=== PATIENT | female | born 1950 | race Caucasian/White ===

== ENCOUNTER 2017-02-01 10:01 | Emergency (ER) | payer OTHER, MEDICAID ==
[2017-02-01 10:11] VITALS: BP 128/62; BMI 33.1
--- NOTE | 2017-02-01 10:25 | DR.GENAD ---
HPI - PCP Primary Care Physician: ezra - HPI Comment HPI Comment: PAIN WORSE TODAY. - Complaint/Symptoms Chief Complaint Doctors Comments: FELL YESTERDAY AND INJURED LEFT KNEE, RT SHOULDER AND LT FOOT. Chief Complaint:: patient stated she fell yesterday and having right shoulder pain, left knee pain and left foot pain. - Nurses notes reviewed Nurses Notes Review: Yes - Source History Provided: Patient - Mode of Arrival Mode of Arrival: Ambulatory - Timing Onset of Chief Complaint: 02/01/17 Came on: Suddenly - Duration Duration: Constant Duration: Days - Severity Severity: Moderate PMH - PMH Past Medical History: Yes Past Medical History: Hypertension, Diabetes, Hypothyroidism, COPD, GERD, Arthritis Past Surgical History: Yes Surgical History: Cholecystectomy, Tonsillectomy - Family History History of Family Medical Conditions: Yes Family Medical History: Diabetes Mellitus, Cancer, [place], Sudden Cardiac , Hypertension - Social History Does patient currently use any type of tobacco product: No Have you used tobacco products in the last 12 months: No Type of Tobacco Use: None Does any household member use tobacco: No Alcohol Use: None Do you use any recreational Drugs:: No Lives With: Family Lives Where: Home - infectious screening In the last 2 months have you had wt loss of >10#?: NO Have you had fever, night sweats or hemotysis?: No Have you traveled outside the country in the last 6 months?: No Isolation: Standard ROS - Review of Systems Constitutional: No Symptoms Reported Eyes: No Symptoms Reported ENTM: No Symptoms Reported Respiratoy: No Symptoms Reported Cardiovascular: No Symptoms Reported Gastrointestinal/Abdominal: No Symptoms Reported Genitourinary: No Symptoms Reported Neurological: No Symptoms Reported Musculoskeletal: Right, Left, Shoulder, Knee, Foot Integumentary: No Symptoms Reported Hematologic/Lymphatic: No Symptoms Reported Endocrine: No Symptoms Reported All Other Systems: Reviewed and Negative PE - Vital Signs Vitals: Temperature 98.7 F Pulse Rate 64 Respiratory Rate 16 Blood Pressure [Right Arm] 126/73 Blood Pressure 128/62 O2 Sat by Pulse Oximetry 100 - General Limitations: No Limitations General Appearance: Alert - Head Head Exam: Normal Inspection - Eyes Eye exam: Normal Appearance - ENT ENT Exam: Normal External Ear Exam TM/Canal Exam: Bilateral Normal Nose Exam: Normal Nose Exam Throat Exam: Normal Inspection - Neck Neck Exam: Normal Inspection - Chest Chest Inspection: Symmetric Chest Wall Rise - Respiratory Respiratory Exam: Normal Lung Sounds Bilat Respiratory Exam: Bilateral Clear to Auscultation - Cardiovascular Cardiovascular Exam: Regular Rate, Normal Rhythm, Normal Heart Sounds - Abdominal Exam Abdominal Exam: Normal Inspection - Extremities Extremities Exam: Tenderness (RT SHOULDER, LEFT FOOT AND LT KNEE TENDER.) - Back Back Exam: Normal Inspection - Neurologic Neurological Exam: Alert, Oriented X3 - Psychiatric Psychiatric Exam: Normal Affect, Normal Mood - Skin Skin Exam: Normal Color MDM - Differential Diagnosis Differential Diagnosis: SPRAIN, FRACTURE, STRAIN KNEE FOOT AND SHOULDER. Course - Treatment Treatment: SEE ORDERS. - Education/Counseling Education/Counseling: Patient, Education Educated On: Diagnosis, Needs for Follow Up ROR - XRAY XRAY Interpreted by: Radiologist XRAY Findings: REPORT DISCUSS WITH PATIENT. - Diagnosis Discharge Problem: Left ankle sprain Qualifiers: Encounter type: initial encounter Involved ligament of ankle: unspecified ligament Qualified Code(s): S93.402A - Sprain of unspecified ligament of left ankle, initial encounter Contusion of left foot Qualifiers: Encounter type: initial encounter Qualified Code(s): S90.32XA - Contusion of left foot, initial encounter Left knee sprain Qualifiers: Encounter type: initial encounter Involved ligament of knee: unspecified ligament Qualified Code(s): S83.92XA - Sprain of unspecified site of left knee, initial encounter Sprain of right shoulder Qualifiers: Encounter type: initial encounter Shoulder sprain type: unspecified sprain Qualified Code(s): S43.401A - Unspecified sprain of right shoulder joint, initial encounter - Discharge Plan Disposition: 01 HOME, SELF-CARE Condition: Stable - Follow ups/Referrals Follow ups/Referrals: Oumar Jeronimo [Primary Care Provider] - 2 days - Instructions Instructions: Shoulder Sprain, Acute Ankle Sprain With Phase I Rehab-SportsMed , Knee Pain, [id number] Additional Instructions: RETURN TO ED IF WORSE. CONTINUE WITH MEDS AT HOME FOR PAIN.
[2017-02-01] MEDS ORDERED: TORADOL 60 MG VIAL IM ONE (10:39)
[2017-02-01] MEDS ORDERED: NEOSPORIN OINT ONE (10:41)
[2017-02-01] MEDS ORDERED: TORADOL 60 MG VIAL ONE (10:44)
[2017-02-01] MEDS ORDERED: MORPHINE SULFATE INJ 4 MG IVP ONE (10:55)
[2017-02-01] MEDS ORDERED: MORPHINE SULFATE INJ 4 MG ONE (10:57)
--- NOTE | 2017-02-01 11:44 | RAD ---
Left ankle, three views Indication: Fall with ankle pain Comparison: None Findings: There is mild soft tissue swelling about the ankle. No acute fracture or malalignment is id entified. There are mild degenerative changes of tibiotalar joint. Small well corticated ossific body adjacent to the medial malleolus is compatible with sequela from remote injury. There is no apprecia ble joint effusion. Hindfoot enthesopathy is noted. Impression: Mild soft tissue swelling about the ankle without acute fracture or malalignment. Chronic/degenerative findings as above. Reported By:
--- NOTE | 2017-02-01 11:47 | RAD ---
Left knee, two views Indication: Fall with knee pain Comparison: None Findings: No acute fracture or malalignment is identified. There is mild tricompartmental degenerativ e arthrosis, most significant within the medial femorotibial and patellofemoral compartments. There i s no significant joint effusion. Mild nonspecific subcutaneous edema is present about the knee. Impression: No acute fracture or malalignment. Mild, nonspecific subcutaneous edema about the knee and degenerative changes, as above. Reported By:
--- NOTE | 2017-02-01 14:23 | RAD ---
Right shoulder, three views Indication: Fall with shoulder pain Comparison: None Findings: No acute fracture or malalignment is identified. There are moderate degenerative changes of the AC joint. The glenohumeral joint and acromiohumeral interval are within normal limits. There is no gross soft tissue injury. Impression: No acute radiographic abnormality of the right shoulder. Reported By:
== END 2017-02-01 12:04 | disposition home or self-care (01) ==
LOC: ER 10:14
DX: S93.402A Sprain of unspecified ligament of left ankle, initial encounter (principal); S90.32XA Contusion of left foot, initial encounter; S83.92XA Sprain of unspecified site of left knee, initial encounter; S43.401A Unspecified sprain of right shoulder joint, initial encounter; W19.XXXA Unspecified fall, initial encounter; Y92.9 Unspecified place or not applicable
CPT/HCPCS: 73030; 73560; 73610; 96372; 99282; 99283; J1885; J2270

== ENCOUNTER 2017-12-12 21:50 | Inpatient (IN) ==
[2017-12-12] MEDS ORDERED: ZOFRAN INJ 4 MG VIAL IVP PRN (22:39)
[2017-12-12] MEDS: DEMEROL INJ IVP PRN (23:20)
[2017-12-12 23:47] LABS: BASOPHILS # (AUTO) 0.1 X10^3/uL (0.0-0.1); BASOPHILS % (AUTO) 1.2 % (0.2-1.0); EOSINOPHILS # (AUTO) 0.2 x10^3/uL (0.0-0.2); EOSINOPHILS % (AUTO) 3.4 % (0.9-2.9); HEMATOCRIT 36.5 % (36.0-47.0); HEMOGLOBIN 12.5 g/dL (12.0-16.0); LYMPHOCYTES # (AUTO) 1.4 X10^3/uL (1.3-2.9); LYMPHOCYTES % (AUTO) 28.5 % (21.0-51.0); MEAN CORPUSCULAR HGB CONC 34.3 g/dL (33.0-35.0); MEAN CORPUSCULAR VOLUME 84.3 fL (80.0-100.0); MEAN PLATELET VOLUME 8.6 fL (7.4-11.0); MONOCYTES # (AUTO) 0.4 x10^3/uL (0.3-0.8); MONOCYTES % (AUTO) 7.2 % (0.0-13.0); NEUTROPHILS % (AUTO) 59.7 % (42.0-75.0); PLATELET COUNT 134 X10^3/uL (150.0-450.0); RED BLOOD COUNT 4.32 X10^6/uL (3.5-5.4); RED CELL DISTRIBUTION WIDTH 14.1 % (11.6-16.5)
[2017-12-12 23:57] LABS: ALANINE AMINOTRANSFERASE 58 Units/L (12-78); ALBUMIN 3.6 g/dL (3.4-5.0); ALKALINE PHOSPHATASE 88 Units/L (46-116); ASPARTATE AMINO TRANSFERASE 54 Units/L (15-37); BLOOD UREA NITROGEN 13 mg/dL (7-18); CALCIUM 9.1 mg/dL (8.5-10.1); CARBON DIOXIDE 33.9 mmol/L (21-32); CHLORIDE 97 mmol/L (98-107); COR NA(FOR HYPERGLY) 141 mmol/L (136-145); CREATININE 1.19 mg/dL (0.55-1.02); SODIUM 135 mmol/L (136-145); TOTAL PROTEIN 7.2 g/dL (6.4-8.2); eGFR NON BLACK RACES 48 (>60)
[2017-12-13 01:23] VITALS: BMI 33.9
[2017-12-13] MEDS ORDERED: MORPHINE SULFATE INJ 2 MG INJ IVP PRN (02:00)
[2017-12-13] MEDS: DEMEROL INJ IVP PRN ×3 (03:30→23:30)
[2017-12-13] MEDS ORDERED: NARCAN INJ IVP ONE (03:45)
[2017-12-13] MEDS ORDERED: NARCAN INJ ONE (03:50)
[2017-12-13 06:03] LABS: BASOPHILS % (AUTO) 0.9 % (0.2-1.0); EOSINOPHILS # (AUTO) 0.2 x10^3/uL (0.0-0.2); EOSINOPHILS % (AUTO) 4.3 % (0.9-2.9); HEMATOCRIT 33.7 % (36.0-47.0); HEMOGLOBIN 11.7 g/dL (12.0-16.0); LYMPHOCYTES # (AUTO) 1.1 X10^3/uL (1.3-2.9); LYMPHOCYTES % (AUTO) 28.7 % (21.0-51.0); MEAN CORPUSCULAR HGB CONC 34.8 g/dL (33.0-35.0); MEAN CORPUSCULAR VOLUME 83.4 fL (80.0-100.0); MEAN PLATELET VOLUME 8.7 fL (7.4-11.0); MONOCYTES # (AUTO) 0.4 x10^3/uL (0.3-0.8); MONOCYTES % (AUTO) 9.4 % (0.0-13.0); NEUTROPHILS # (AUTO) 2.2 x10^3/uL (2.2-4.8); NEUTROPHILS % (AUTO) 56.7 % (42.0-75.0); PLATELET COUNT 117 X10^3/uL (150.0-450.0); RED BLOOD COUNT 4.04 X10^6/uL (3.5-5.4); RED CELL DISTRIBUTION WIDTH 13.8 % (11.6-16.5)
[2017-12-13 06:20] LABS: ALANINE AMINOTRANSFERASE 52 Units/L (12-78); ALBUMIN 3.2 g/dL (3.4-5.0); ALKALINE PHOSPHATASE 77 Units/L (46-116); ASPARTATE AMINO TRANSFERASE 47 Units/L (15-37); BLOOD UREA NITROGEN 12 mg/dL (7-18); CALCIUM 8.9 mg/dL (8.5-10.1); CHLORIDE 100 mmol/L (98-107); COR CA(FOR HYPOALB) 9.5 mg/dL (8.5-10.1); COR NA(FOR HYPERGLY) 140 mmol/L (136-145); CREATININE 1.04 mg/dL (0.55-1.02); SODIUM 137 mmol/L (136-145); TOTAL PROTEIN 6.5 g/dL (6.4-8.2); eGFR NON BLACK RACES 56 (>60)
[2017-12-13] MEDS ORDERED: K-LYTE EFFERVESCENT PO PRN (10:05)
[2017-12-13] MEDS ORDERED: POTASSIUM CHL 60 MEQ/NS 0.45% 500 ML IV PRN (10:05)
[2017-12-13] MEDS ORDERED: POTASSIUM CHL 40 MEQ/NS 0.45% 500 ML IV PRN (10:05)
[2017-12-13] MEDS ORDERED: POTASSIUM CHLORIDE LIQ 20 MEQ UDC PO PRN (10:05)
[2017-12-13] MEDS ORDERED: K-RIDER 10 MEQ/NS 100 ML 10 MEQ/100 ML BAG IV PRN (10:05)
[2017-12-13] MEDS: TORADOL 15 MG VIAL IVP SCH ×3 (10:19→21:34)
[2017-12-13] MEDS ORDERED: NS 250 ML IV 250 ML IV ONE (13:01)
[2017-12-13] MEDS: HumuLIN R SUBCUT PRN ×2 (13:21→18:05)
[2017-12-13] MEDS: MAGNESIUM SULFATE 1 GRAM/100 mL PREMIX 1 GM/100 ML BAG IV PRN ×2 (19:14→20:34)
--- NOTE | 2017-12-13 20:32 | DR.H&P ---
H&P - History & Physical for Day of: H&P Date: 12/12/17 - Chief Complaint Chief Complaint: RIGHT LEG PAIN - History of Present Illness History of Present Illness: IS A 67 YEAR OLD PATIENT OF OURS. SHE WAS A DIRECT ADMISSION FOR COMPLAINTS OF SEVERE RIGHT HIP AND LEG PAIN. PATIENT REPORTS THAT SHE ALSO HAS A BROKEN COCCYX. PATIENT REPORTS THAT PAIN HAS BEEN PRESENT FOR SEVERAL DAYS, BUT HAS PROGRESSIVELY GOTTEN WORSE. SHE REPORTS TAKING HER REGULAR PAIN MEDICATIONS AT HOME WITHOUT RELIEF OF PAIN. SHE WAS ADMITTED FOR INTRACTABLE PAIN TO MANAGE WITH IV PAIN MEDICATIONS. ON EXAMINATION , RIGHT LEG IS NOTED WITH TRACE EDEMA. ON ADMISSION, VITALS WERE 98.7-76-18-93%- 178/80. LABS WERE OBTAINED. ABNORMAL LAB VALUES INCLUDE THE FOLLOWING: PLT COUNT 134, SODIUM 135, CHLORIDE 97, CARBON DIOXIDE 33.9, CREATININE 1.19, GLUCOSE 357, AST 54. SHE WAS STARTED ON DEMEROL 25MG IV Q4H PRN PAIN AND ZOFRAN 4MG IV Q4H PRN NAUSEA. WE PLAN TO OBTAIN A VENOUS DOPPLER OF THE RIGHT LOWER EXTREMITY. OTHERWISE, WE WILL FOLLOW UP WITH AM LABS AND CONTINUE TO MONITOR PATIENT. - Past Medical History Past Medical History: Hypertension, Diabetes, Hypothyroidism, COPD, GERD, Arthritis - Past Surgical History Surgical History: Cholecystectomy, Hysterectomy, Other - Family History Family Medical History: Diabetes Mellitus, Cancer - Social History Alcohol Use: None Drug Use: None - Medications Home Medications: aspirin Allergy (Verified 02/01/17 10:07) CONTINUE taking the following medications amitriptyline 50 mg PO HS 12/13/17 [History] clonazepam 1 - 2 tab PO HS 12/13/17 [History] dexlansoprazole [Dexilant] 60 mg PO DAILY 12/13/17 [History] fenofibrate 1 tab PO DAILY 12/13/17 [History] gabapentin 2 tab PO HS 12/13/17 [History] gabapentin 800 mg PO TID PRN 12/13/17 [History] levothyroxine 50 mcg PO HS 12/13/17 [History] metformin 1,000 mg PO BID 12/13/17 [History] metoprolol tartrate 25 mg PO BID 12/13/17 [History] montelukast 10 mg PO HS 12/13/17 [History] ondansetron 8 mg TRANSLINGUAL TID PRN 12/13/17 [History] paroxetine HCl 40 mg PO DAILY 12/13/17 [History] simvastatin 40 mg PO HS 12/13/17 [History] topiramate 100 mg PO BID 12/13/17 [History] - Review of Systems Constitutional: No Symptoms Reported Eyes: No Symptoms Reported ENT: No Symptoms Reported Respiratory: No Symptoms Reported Cardiovascular: No Symptoms Reported Gastrointestinal: No Symptoms Reported Genitourinary: No Symptoms Reported Musculoskeletal: See HPI, Leg Pain (RIGHT LEG ), Other (SACRAL PAIN ) Skin: No Symptoms Reported Neurological: No Symptoms Reported - Physical Exam Vital Signs: Temperature 98.3 F Pulse Rate [Left Radial] 77 Respiratory Rate 20 Blood Pressure [Left Arm] 180/67 Blood Pressure [Right Arm] 160/89 Blood Pressure 128/62 O2 Sat by Pulse Oximetry 99 Oriented: Normal Eyes: Normal Ear: Normal Nose: Normal Throat: Normal Respiratory: Clear Throughout Cardiovascular: Normal : Normal Auscultation: Bowel Sounds: Normal Palpation: Normal Tenderness: Normal Skin: Normal Musculoskeletal: Right, Leg, Swelling, Tender Psychiatric: Normal Mood Description: Calm Affect: Normal Speech Pattern: Clear - Assessment/Plan (1) Intractable pain Status: Acute Plan: DEMEROL 25MG IV Q4H PRN PAIN, OBTAIN VENOUS DOPPLER, CONTINUE TO MONITOR - Allergies Allergies/Adverse Reactions: Allergies Allergy/AdvReac Type Severity Reaction Status Date / Time aspirin Allergy Verified 02/01/17 10:07
[2017-12-13] MEDS ORDERED: TRICOR TAB 160 MG PO SCH (21:00)
[2017-12-13] MEDS ORDERED: TOPAMAX TAB 100 MG PO SCH (21:00)
[2017-12-13] MEDS ORDERED: GLUCOPHAGE ONE (21:19)
[2017-12-13] MEDS: ELAVIL PO SCH (21:24)
[2017-12-13] MEDS: GLUCOPHAGE PO SCH (21:25)
[2017-12-13] MEDS: LOPRESSOR TAB 25 MG PO SCH (21:25)
[2017-12-13] MEDS: ZOCOR TAB 40 MG PO SCH (21:25)
[2017-12-13] MEDS: NEURONTIN CAP 400 MG PO SCH (21:25)
[2017-12-13] MEDS: GLUCOTROL PO SCH (21:26)
[2017-12-13] MEDS: SINGULAIR TAB 10 MG PO SCH (21:26)
[2017-12-13] MEDS: SYNTHROID 50 mcg TAB PO SCH (21:27)
[2017-12-13] MEDS: KLONOPIN TAB 0.5 MG PO SCH (21:31)
[2017-12-13] MEDS: TOPAMAX TAB 100 MG PO SCH (21:39)
[2017-12-13] MEDS: SNACK - Diabetic Appropriate PO SCH (21:39)
--- NOTE | 2017-12-13 22:08 | VAS ---
Ultrasound bilateral lower extremity venous Doppler Indication: Bilateral leg pain cramping Technique: Dynamic grayscale, color spectral Doppler imaging through the bilateral lower extremities with compression techniques. Findings: The right popliteal vein, superficial femoral vein throughout its length and common femoral vein are patent and compressible with normal respiratory phasicity. The left popliteal vein is patent and compressible with normal respiratory phasicity. The left common femoral vein, proximal and mid left superficial femoral vein are patent compressible with normal res piratory phasicity. The distal left superficial femoral vein is not completely compressible with vagu jo decreased color Doppler flow. Thrombus here is possible. Impression: 1. Noncompressible left distal superficial femoral vein with possible thrombosed. 2. Remaining veins are normal. Reported By:
[2017-12-13] MEDS: LOVENOX INJ 80 MG SYR SC SCH (23:04)
[2017-12-14] MEDS: PERCOCET TAB 5/325 MG PO PRN (01:37)
[2017-12-14] MEDS: TORADOL 15 MG VIAL IVP SCH ×4 (03:43→21:53)
[2017-12-14] MEDS ORDERED: GLUCOPHAGE ONE ×2 (05:15→16:38)
[2017-12-14] MEDS: NEURONTIN CAP 400 MG PO SCH ×3 (05:49→21:55)
[2017-12-14] MEDS: DEMEROL INJ IVP PRN ×2 (05:53→23:00)
[2017-12-14] MEDS: GLUCOTROL PO SCH ×2 (06:00→16:41)
[2017-12-14] MEDS: GLUCOPHAGE PO SCH ×2 (06:00→16:40)
[2017-12-14 06:20] LABS: BASOPHILS % (AUTO) 0.8 % (0.2-1.0); EOSINOPHILS # (AUTO) 0.2 x10^3/uL (0.0-0.2); EOSINOPHILS % (AUTO) 4.3 % (0.9-2.9); HEMATOCRIT 37.1 % (36.0-47.0); HEMOGLOBIN 12.9 g/dL (12.0-16.0); LYMPHOCYTES # (AUTO) 1.6 X10^3/uL (1.3-2.9); LYMPHOCYTES % (AUTO) 39.3 % (21.0-51.0); MEAN CORPUSCULAR HEMOGLOBIN 29.3 pg (27.0-34.0); MEAN CORPUSCULAR HGB CONC 34.8 g/dL (33.0-35.0); MEAN CORPUSCULAR VOLUME 84.2 fL (80.0-100.0); MEAN PLATELET VOLUME 9.1 fL (7.4-11.0); MONOCYTES # (AUTO) 0.3 x10^3/uL (0.3-0.8); MONOCYTES % (AUTO) 8.5 % (0.0-13.0); NEUTROPHILS # (AUTO) 1.9 x10^3/uL (2.2-4.8); NEUTROPHILS % (AUTO) 47.1 % (42.0-75.0); PLATELET COUNT 122 X10^3/uL (150.0-450.0); RED BLOOD COUNT 4.41 X10^6/uL (3.5-5.4); RED CELL DISTRIBUTION WIDTH 13.9 % (11.6-16.5)
[2017-12-14 06:37] LABS: ALBUMIN 3.3 g/dL (3.4-5.0); CALCIUM 8.9 mg/dL (8.5-10.1); CARBON DIOXIDE 31.2 mmol/L (21-32); COR CA(FOR HYPOALB) 9.5 mg/dL (8.5-10.1); CREATININE 1.31 mg/dL (0.55-1.02); TOTAL PROTEIN 6.9 g/dL (6.4-8.2)
[2017-12-14] MEDS ORDERED: COZAAR PO SCH (09:00)
[2017-12-14] MEDS ORDERED: PATIENT'S HOME MEDICATION (Dexlansoprazole [Dexlansoprazole] 60 MG) PO SCH (09:00)
[2017-12-14] MEDS: PREVACID PO SCH (09:38)
[2017-12-14] MEDS: COZAAR PO SCH (09:38)
[2017-12-14] MEDS: TOPAMAX TAB 100 MG PO SCH ×2 (09:39→21:52)
[2017-12-14] MEDS: TRICOR TAB 160 MG PO SCH (09:40)
[2017-12-14] MEDS: HYDROCHLOROTHIAZIDE 25 MG TAB PO SCH (09:40)
[2017-12-14] MEDS: LOPRESSOR TAB 25 MG PO SCH ×2 (09:40→20:10)
[2017-12-14] MEDS: PAXIL PO SCH (09:41)
[2017-12-14] MEDS: LOVENOX INJ 80 MG SYR SC SCH ×2 (09:45→20:12)
[2017-12-14] MEDS: HumuLIN R SUBCUT PRN ×2 (13:27→21:56)
--- NOTE | 2017-12-14 13:57 | MRI ---
STUDY: MRI OF THE LUMBAR SPINE HISTORY: Severe low back pain and right leg pain. Comparison: None. Technique: Multiplanar multi-sequence MRI of the lumbar spine was performed. Sagittal T1, sagittal T 2, and STIR images, axial T1, and axial T2 images were obtained. Findings: Sagittal images: Vertebral body heights and alignment are within normal limits. Marrow signal is age-appropriate. Ther e is no evidence of significant marrow edema. Intervertebral discs are fairly well preserved. The conus medullaris is normal in appearance terminating at the level of T12/L1. Axial images: T12 -- L1: Normal. L1 -- L2: Normal. L2 -- L3: There is bilateral facet arthropathy and ligamentum flavum infolding. The central canal an d neural foramina are adequate. L3 -- L4: There is bilateral facet arthropathy and ligamentum flavum infolding. There postsurgical c hanges status post left-sided laminotomy. The central canal and neural foramina are adequate. L4 -- L5: There is a broad-based disc bulge, bilateral facet arthropathy and ligamentum flavum infold ing. This results in mild central canal stenosis. The neural foramina are adequate. L5 -- S1: There is bilateral facet arthropathy and ligamentum flavum infolding. The central canal and neural foramina are adequate. IMPRESSION: 1. Multilevel lumbar spondylosis as described, with left L3/4 laminotomy. 2. Mild spinal stenosis at L4/5. 3. No significant neural foraminal stenosis. Reported By:
[2017-12-14] MEDS: KLONOPIN TAB 0.5 MG PO SCH (20:10)
[2017-12-14] MEDS: SYNTHROID 50 mcg TAB PO SCH (20:10)
[2017-12-14] MEDS: SINGULAIR TAB 10 MG PO SCH (20:10)
[2017-12-14] MEDS: ZOCOR TAB 40 MG PO SCH (20:10)
[2017-12-14] MEDS: ELAVIL PO SCH (20:10)
[2017-12-14] MEDS: SNACK - Diabetic Appropriate PO SCH (21:55)
--- NOTE | 2017-12-14 22:21 | PCM.PROG ---
Progress Note - Progress Note for Day of Date of Exam: 12/13/17 - Subjective Subjective: WAS ADMITTED FOR INTRACTABLE RIGHT HIP AND LEG PAIN WELL PAIN TO THE COCCYX. TODAY, SHE IS ALERT AND ORIENTED, LYING IN BED ON MORNING ROUNDS. SHE CONTINUES WITH PAIN TO THE HIP AND LEG. ON EXAMINATION, HEART IS REGULAR IN RATE AND RHYTHM. BILATERAL LUNGS ARE NOTED WITH DIMINISHED LUNG SOUNDS THROUGHOUT. ABDOMEN IS ROUND, SOFT, AND NON-TENDER WITH NORMAL BOWEL SOUNDS NOTED IN ALL QUADRANTS. THERE IS DECREASED RANGE OF MOTION NOTED TO THE RIGHT LEG. BILATERAL LEGS NOTED WITH TRACE EDEMA. HER VITALS TODAY ARE 98.2-70-20-100%NC-157/70. LABS WERE OBTAINED. ABNORMAL LAB VALUES INCLUDE THE FOLLOWING: HGB 11.7, HCT 33.7, PLT COUNT 117, POTASSIUM 3.2, CREATININE 1.04, GLUCOSE 238, AST 47, ALBUMIN 3.2, MAGNESIUM 1.6. TODAY, WE WILL OBTAIN A VENOUS DOPPLER OF THE BILATERAL LOWER EXTREMITIES. WE WILL START TORADOL 30MG IV Q6H, AND PERCOCET 5MG QID PRN PAIN. OTHERWISE, WE WILL FOLLOW UP WITH AM LABS AND CONTINUE TO MONITOR PATIENT. - Past Medical Family Social History Past Med/Fam/Surg Hx: No changes since H&P Allergies: Allergies aspirin Allergy (Verified 02/01/17 10:07) - Review of Systems ROS: No change since H&P - Vital Signs and I&O's Vital Signs: Temperature 97.4 F Pulse Rate [Left Radial] 62 Respiratory Rate 18 Blood Pressure [Left Arm] 164/73 Blood Pressure [Right Arm] 160/89 Blood Pressure 128/62 O2 Sat by Pulse Oximetry 92 Intake and Output: Intake & Output 12/12/17 12/13/17 12/14/17 12/15/17 11:59 11:59 11:59 11:59 Intake Total 90 / 90 1754 / 1754 880 / 880 Output Total 4200 / 4200 500 / 500 Balance 90 / 90 -2446 / -2446 380 / 380 - Physical Exam Oriented: Normal Eyes: Normal Ear: Normal Nose: Normal Throat: Normal Respiratory: Diminished Cardiovascular: Normal : Normal Auscultation: Bowel Sounds: Normal Palpation: Normal Tenderness: Normal Skin: Normal Musculoskeletal: Right, Hip, Leg, Back:Lumbar, Swelling, Tender Psychiatric: Normal Mood Description: Calm Affect: Normal Speech Pattern: Clear, Appropriate - Laboratory and Diagnostics Result Diagrams: 12/14/17 04:32 12/14/17 04:32 Labs: Laboratory WBC 4.0 X10^3/uL (3.6-10.0) 12/14/17 04:32 RBC 4.41 X10^6/uL (3.5-5.4) 12/14/17 04:32 Hgb 12.9 g/dL (12.0-16.0) 12/14/17 04:32 Hct 37.1 % (36.0-47.0) 12/14/17 04:32 MCV 84.2 fL (80.0-100.0) 12/14/17 04:32 MCH 29.3 pg (27.0-34.0) 12/14/17 04:32 MCHC 34.8 g/dL (33.0-35.0) 12/14/17 04:32 RDW 13.9 % (11.6-16.5) 12/14/17 04:32 Plt Count 122 X10^3/uL (150.0-450.0) L 12/14/17 04:32 MPV 9.1 fL (7.4-11.0) 12/14/17 04:32 Neut % (Auto) 47.1 % (42.0-75.0) 12/14/17 04:32 Lymph % (Auto) 39.3 % (21.0-51.0) 12/14/17 04:32 [place] % (Auto) 8.5 % (0.0-13.0) 12/14/17 04:32 Eos % (Auto) 4.3 % (0.9-2.9) H 12/14/17 04:32 Baso % (Auto) 0.8 % (0.2-1.0) 12/14/17 04:32 Neut # (Auto) 1.9 x10^3/uL (2.2-4.8) L 12/14/17 04:32 Lymph # (Auto) 1.6 X10^3/uL (1.3-2.9) 12/14/17 04:32 [place] # (Auto) 0.3 x10^3/uL (0.3-0.8) 12/14/17 04:32 Eos # (Auto) 0.2 x10^3/uL (0.0-0.2) 12/14/17 04:32 Baso # (Auto) 0.0 X10^3/uL (0.0-0.1) 12/14/17 04:32 Absolute Nucleated RBC 0.3 /100WBC 12/14/17 04:32 D-Dimer 190 ng/mL (0-400) 12/12/17 23:37 Sodium 137 mmol/L (136-145) 12/14/17 04:32 Corrected Sodium 141 mmol/L (136-145) 12/14/17 04:32 Potassium 4.1 mmol/L (3.5-5.1) 12/14/17 04:32 Chloride 102 mmol/L (98-107) 12/14/17 04:32 Carbon Dioxide 31.2 mmol/L (21-32) 12/14/17 04:32 BUN 18 mg/dL (7-18) 12/14/17 04:32 Creatinine 1.31 mg/dL (0.55-1.02) H 12/14/17 04:32 Est GFR (MDRD) Af Amer 52 (>60) L 12/14/17 04:32 Est GFR (MDRD) Non-Af 43 (>60) L 12/14/17 04:32 Glucose 282 mg/dL (65-99) H 12/14/17 04:32 POC Glucose (mg/dL) 252 mg/dL (65-99) H 12/14/17 20:03 Calcium 8.9 mg/dL (8.5-10.1) 12/14/17 04:32 Corrected Calcium 9.5 mg/dL (8.5-10.1) 12/14/17 04:32 Magnesium 2.2 mg/dL (1.7-2.9) 12/14/17 04:32 Total Bilirubin 0.40 mg/dL (0.2-1.0) 12/14/17 04:32 AST 45 Units/L (15-37) H 12/14/17 04:32 ALT 51 Units/L (12-78) 12/14/17 04:32 Alkaline Phosphatase 88 Units/L (46-116) 12/14/17 04:32 Total Protein 6.9 g/dL (6.4-8.2) 12/14/17 04:32 Albumin 3.3 g/dL (3.4-5.0) L 12/14/17 04:32 Globulin 3.6 g/dL (2.5-4.5) 12/14/17 04:32 Albumin/Globulin Ratio 0.9 Ratio (1.1-2.1) L 12/14/17 04:32 - Plan (1) Intractable pain Status: Acute Plan: DEMEROL 25MG IV Q4H PRN PAIN, PERCOCET PRN PAIN, TORADOL IV Q6H PAIN, OBTAIN VENOUS DOPPLER, CONTINUE TO MONITOR (2) Radiculopathy of leg Status: Acute
[2017-12-15] MEDS: TORADOL 15 MG VIAL IVP SCH ×4 (03:39→21:18)
[2017-12-15] MEDS ORDERED: GLUCOPHAGE ONE ×2 (05:55→17:38)
[2017-12-15 06:08] LABS: ALBUMIN 2.7 g/dL (3.4-5.0); CALCIUM 8.6 mg/dL (8.5-10.1); CARBON DIOXIDE 31.3 mmol/L (21-32); COR CA(FOR HYPOALB) 9.6 mg/dL (8.5-10.1); CREATININE 1.22 mg/dL (0.55-1.02); TOTAL PROTEIN 5.9 g/dL (6.4-8.2)
[2017-12-15 06:15] LABS: BASOPHILS % (AUTO) 0.8 % (0.2-1.0); EOSINOPHILS # (AUTO) 0.1 x10^3/uL (0.0-0.2); EOSINOPHILS % (AUTO) 3.9 % (0.9-2.9); HEMATOCRIT 32.4 % (36.0-47.0); HEMOGLOBIN 11.3 g/dL (12.0-16.0); LYMPHOCYTES # (AUTO) 1.1 X10^3/uL (1.3-2.9); LYMPHOCYTES % (AUTO) 33.3 % (21.0-51.0); MEAN CORPUSCULAR HEMOGLOBIN 29.5 pg (27.0-34.0); MEAN CORPUSCULAR HGB CONC 34.8 g/dL (33.0-35.0); MEAN CORPUSCULAR VOLUME 84.5 fL (80.0-100.0); MEAN PLATELET VOLUME 8.8 fL (7.4-11.0); MONOCYTES # (AUTO) 0.3 x10^3/uL (0.3-0.8); MONOCYTES % (AUTO) 7.9 % (0.0-13.0); NEUTROPHILS # (AUTO) 1.8 x10^3/uL (2.2-4.8); NEUTROPHILS % (AUTO) 54.1 % (42.0-75.0); PLATELET COUNT 121 X10^3/uL (150.0-450.0); RED BLOOD COUNT 3.83 X10^6/uL (3.5-5.4); RED CELL DISTRIBUTION WIDTH 13.8 % (11.6-16.5); WHITE BLOOD COUNT 3.3 X10^3/uL (3.6-10.0)
[2017-12-15] MEDS: NEURONTIN CAP 400 MG PO SCH ×3 (07:10→21:17)
[2017-12-15] MEDS: GLUCOTROL PO SCH ×2 (07:11→17:56)
[2017-12-15] MEDS: GLUCOPHAGE PO SCH ×2 (07:11→17:56)
[2017-12-15] MEDS: HumuLIN R SUBCUT PRN ×3 (07:11→21:14)
[2017-12-15] MEDS: PREVACID PO SCH (09:51)
[2017-12-15] MEDS: TRICOR TAB 160 MG PO SCH (09:51)
[2017-12-15] MEDS: PAXIL PO SCH (09:51)
[2017-12-15] MEDS: TOPAMAX TAB 100 MG PO SCH ×2 (09:51→21:17)
[2017-12-15] MEDS: LOPRESSOR TAB 25 MG PO SCH ×2 (09:52→20:24)
[2017-12-15] MEDS: HYDROCHLOROTHIAZIDE 25 MG TAB PO SCH (09:52)
[2017-12-15] MEDS: LOVENOX INJ 80 MG SYR SC SCH (09:52)
[2017-12-15] MEDS: COZAAR PO SCH (09:52)
[2017-12-15] MEDS: DEMEROL INJ IVP PRN (11:16)
--- NOTE | 2017-12-15 13:38 | CT ---
CT HEAD WITHOUT CONTRAST CLINICAL HISTORY: 67-year-old female with severe headache. COMPARISON: None. TECHNIQUE: Multiple, non-contrasted axial CT images were obtained from the skull base to the cranial vertex. Coronal and sagittal reformats were performed. FINDINGS: There are no abnormal intra- or extra-axial fluid collections, midline shift, or mass effec t. Cruz-white differentiation is normal. Global cortical involutional changes are present that are ad vanced for the patient's stated age. The ventricular system is mildly enlarged but commensurate with the degree of sulcal prominence. Periventricular and supraventricular white matter hypodensity is pre sent that is nonspecific in appearance, but most likely to represent microvascular ischemic changes. Atherosclerotic vascular calcification is present within the carotid siphons. The imaged paranasal sinuses, mastoid air cells, and tympanic spaces are clear. IMPRESSION: 1. No definite evidence of an acute intracranial process. If clinical concern persists for acute intr acranial process and it would alter patient management, consider MRI/MRA brain. 2. Moderate microvascular white matter ischemic changes, with associated volume loss. Reported By:
--- NOTE | 2017-12-15 13:55 | PCM.PROG ---
Progress Note - Progress Note for Day of Date of Exam: 12/14/17 - Subjective Subjective: WAS ADMITTED FOR INTRACTABLE RIGHT HIP AND LEG PAIN WELL PAIN TO THE COCCYX. TODAY, SHE IS ALERT AND ORIENTED, LYING IN BED ON MORNING ROUNDS. SHE CONTINUES WITH PAIN TO THE HIP AND LEG, BUT REPORTS SLIGHT IMPROVEMENT SINCE ADMISSION. ON EXAMINATION, HEART IS REGULAR IN RATE AND RHYTHM. BILATERAL LUNGS ARE NOTED WITH DIMINISHED LUNG SOUNDS THROUGHOUT. ABDOMEN IS ROUND, SOFT, AND NON-TENDER WITH NORMAL BOWEL SOUNDS NOTED IN ALL QUADRANTS. THERE IS DECREASED RANGE OF MOTION NOTED TO THE RIGHT LEG. BILATERAL LEGS NOTED WITH TRACE EDEMA. HER VITALS TODAY ARE 97.5-57-18-100%NC-137/63. LABS WERE OBTAINED. ABNORMAL LAB VALUES INCLUDE THE FOLLOWING: PLT COUNT 122, CREATININE 1.31, GLUCOSE 282, AST 45, ALBUMIN 3.3. WE OBTAINED A VENOUS DOPPLER OF THE BILATERAL LOWER EXTREMITIES YESTERDAY. IT REVEALED: Noncompressible left distal superficial femoral vein with possible thrombosed. Remaining veins are normal. WE STARTED HER ON LOVENOX 80MG SQ BID. TODAY, WE WILL OBTAIN A MRI OF THE LUMBAR SPINE. OTHERWISE, WE WILL CONTINUE WITH WE WILL FOLLOW UP WITH AM LABS AND CONTINUE TO MONITOR PATIENT. - Past Medical Family Social History Past Med/Fam/Surg Hx: No changes since H&P Allergies: Allergies aspirin Allergy (Verified 02/01/17 10:07) morphine Adverse Reaction (Verified 12/15/17 07:03) - Review of Systems ROS: No change since H&P - Vital Signs and I&O's Vital Signs: Temperature 98.0 F Pulse Rate [Left Radial] 63 Respiratory Rate 20 Blood Pressure [Left Arm] 143/67 Blood Pressure [Right Arm] 160/89 Blood Pressure 128/62 O2 Sat by Pulse Oximetry 97 Intake and Output: Intake & Output 12/13/17 12/14/17 12/15/17 12/16/17 11:59 11:59 11:59 11:59 Intake Total 90 / 90 1754 / 1754 1360 / 1360 Output Total 4200 / 4200 2200 / 2200 Balance 90 / 90 -2446 / -2446 -840 / -840 - Physical Exam Oriented: Normal Eyes: Normal Ear: Normal Nose: Normal Throat: Normal Respiratory: Diminished Cardiovascular: Normal : Normal Auscultation: Bowel Sounds: Normal Palpation: Normal Tenderness: Normal Skin: Normal Musculoskeletal: Right, Hip, Leg, Back:Lumbar, Swelling, Tender Psychiatric: Normal Mood Description: Calm Affect: Normal Speech Pattern: Clear, Appropriate - Laboratory and Diagnostics Result Diagrams: 12/15/17 05:05 12/15/17 05:05 Labs: Laboratory WBC 3.3 X10^3/uL (3.6-10.0) L 12/15/17 05:05 RBC 3.83 X10^6/uL (3.5-5.4) 12/15/17 05:05 Hgb 11.3 g/dL (12.0-16.0) L 12/15/17 05:05 Hct 32.4 % (36.0-47.0) L 12/15/17 05:05 MCV 84.5 fL (80.0-100.0) 12/15/17 05:05 MCH 29.5 pg (27.0-34.0) 12/15/17 05:05 MCHC 34.8 g/dL (33.0-35.0) 12/15/17 05:05 RDW 13.8 % (11.6-16.5) 12/15/17 05:05 Plt Count 121 X10^3/uL (150.0-450.0) L 12/15/17 05:05 MPV 8.8 fL (7.4-11.0) 12/15/17 05:05 Neut % (Auto) 54.1 % (42.0-75.0) 12/15/17 05:05 Lymph % (Auto) 33.3 % (21.0-51.0) 12/15/17 05:05 [place] % (Auto) 7.9 % (0.0-13.0) 12/15/17 05:05 Eos % (Auto) 3.9 % (0.9-2.9) H 12/15/17 05:05 Baso % (Auto) 0.8 % (0.2-1.0) 12/15/17 05:05 Neut # (Auto) 1.8 x10^3/uL (2.2-4.8) L 12/15/17 05:05 Lymph # (Auto) 1.1 X10^3/uL (1.3-2.9) L 12/15/17 05:05 [place] # (Auto) 0.3 x10^3/uL (0.3-0.8) 12/15/17 05:05 Eos # (Auto) 0.1 x10^3/uL (0.0-0.2) 12/15/17 05:05 Baso # (Auto) 0.0 X10^3/uL (0.0-0.1) 12/15/17 05:05 Absolute Nucleated RBC 0.0 /100WBC 12/15/17 05:05 D-Dimer 190 ng/mL (0-400) 12/12/17 23:37 Sodium 137 mmol/L (136-145) 12/15/17 05:05 Corrected Sodium 140 mmol/L (136-145) 12/15/17 05:05 Potassium 3.7 mmol/L (3.5-5.1) 12/15/17 05:05 Chloride 104 mmol/L (98-107) 12/15/17 05:05 Carbon Dioxide 31.3 mmol/L (21-32) 12/15/17 05:05 BUN 21 mg/dL (7-18) H 12/15/17 05:05 Creatinine 1.22 mg/dL (0.55-1.02) H 12/15/17 05:05 Est GFR (MDRD) Af Amer 57 (>60) L 12/15/17 05:05 Est GFR (MDRD) Non-Af 47 (>60) L 12/15/17 05:05 Glucose 216 mg/dL (65-99) H 12/15/17 05:05 POC Glucose (mg/dL) 290 mg/dL (65-99) H 12/15/17 12:22 Calcium 8.6 mg/dL (8.5-10.1) 12/15/17 05:05 Corrected Calcium 9.6 mg/dL (8.5-10.1) 12/15/17 05:05 Magnesium 2.2 mg/dL (1.7-2.9) 12/14/17 04:32 Total Bilirubin 0.40 mg/dL (0.2-1.0) 12/15/17 05:05 AST 31 Units/L (15-37) 12/15/17 05:05 ALT 40 Units/L (12-78) 12/15/17 05:05 Alkaline Phosphatase 81 Units/L (46-116) 12/15/17 05:05 Total Protein 5.9 g/dL (6.4-8.2) L 12/15/17 05:05 Albumin 2.7 g/dL (3.4-5.0) L 12/15/17 05:05 Globulin 3.2 g/dL (2.5-4.5) 12/15/17 05:05 Albumin/Globulin Ratio 0.8 Ratio (1.1-2.1) L 12/15/17 05:05 - Plan (1) Intractable pain Status: Acute Plan: DEMEROL 25MG IV Q4H PRN PAIN, PERCOCET PRN PAIN, TORADOL IV Q6H PAIN, OBTAIN LOWER EXTREMITY MRI, CONTINUE TO MONITOR (2) Radiculopathy of leg Status: Acute
[2017-12-15] MEDS: ELIQUIS PO SCH ×2 (14:18→20:24)
[2017-12-15] MEDS ORDERED: DULCOLAX SUPPOSITORY 10 MG ONE (16:01)
[2017-12-15] MEDS: MILK OF MAGNESIA PO SCH (17:56)
[2017-12-15] MEDS: KLONOPIN TAB 0.5 MG PO SCH (20:23)
[2017-12-15] MEDS: ELAVIL PO SCH (20:24)
[2017-12-15] MEDS: ZOCOR TAB 40 MG PO SCH (20:24)
[2017-12-15] MEDS: SINGULAIR TAB 10 MG PO SCH (20:24)
[2017-12-15] MEDS: SNACK - Diabetic Appropriate PO SCH (20:28)
[2017-12-15] MEDS: SYNTHROID 50 mcg TAB PO SCH (20:28)
[2017-12-15] MEDS ORDERED: COLACE CAP 100 MG PO SCH (21:00)
[2017-12-16] MEDS: TORADOL 15 MG VIAL IVP SCH ×2 (03:06→09:21)
[2017-12-16] MEDS ORDERED: GLUCOPHAGE ONE ×2 (04:52→09:00)
[2017-12-16] MEDS: NEURONTIN CAP 400 MG PO SCH ×2 (05:40→13:58)
[2017-12-16 05:47] LABS: BASOPHILS % (AUTO) 0.6 % (0.2-1.0); EOSINOPHILS # (AUTO) 0.1 x10^3/uL (0.0-0.2); EOSINOPHILS % (AUTO) 3.2 % (0.9-2.9); HEMATOCRIT 30.7 % (36.0-47.0); HEMOGLOBIN 10.6 g/dL (12.0-16.0); LYMPHOCYTES # (AUTO) 1.2 X10^3/uL (1.3-2.9); LYMPHOCYTES % (AUTO) 28.4 % (21.0-51.0); MEAN CORPUSCULAR HEMOGLOBIN 29.3 pg (27.0-34.0); MEAN CORPUSCULAR HGB CONC 34.7 g/dL (33.0-35.0); MEAN CORPUSCULAR VOLUME 84.5 fL (80.0-100.0); MEAN PLATELET VOLUME 8.8 fL (7.4-11.0); MONOCYTES # (AUTO) 0.3 x10^3/uL (0.3-0.8); MONOCYTES % (AUTO) 8.4 % (0.0-13.0); NEUTROPHILS # (AUTO) 2.4 x10^3/uL (2.2-4.8); NEUTROPHILS % (AUTO) 59.4 % (42.0-75.0); PLATELET COUNT 117 X10^3/uL (150.0-450.0); RED BLOOD COUNT 3.63 X10^6/uL (3.5-5.4); RED CELL DISTRIBUTION WIDTH 13.8 % (11.6-16.5); WHITE BLOOD COUNT 4.1 X10^3/uL (3.6-10.0)
[2017-12-16] MEDS: DEMEROL INJ IVP PRN (05:56)
[2017-12-16] MEDS: GLUCOTROL PO SCH (06:01)
[2017-12-16] MEDS: GLUCOPHAGE PO SCH (06:01)
[2017-12-16 06:08] LABS: ALBUMIN 2.6 g/dL (3.4-5.0); CALCIUM 8.5 mg/dL (8.5-10.1); COR CA(FOR HYPOALB) 9.6 mg/dL (8.5-10.1); CREATININE 1.3 mg/dL (0.55-1.02); TOTAL PROTEIN 5.8 g/dL (6.4-8.2)
[2017-12-16] MEDS: MILK OF MAGNESIA PO SCH (09:17)
[2017-12-16] MEDS: TRICOR TAB 160 MG PO SCH (09:18)
[2017-12-16] MEDS: PAXIL PO SCH (09:18)
[2017-12-16] MEDS: TOPAMAX TAB 100 MG PO SCH (09:18)
[2017-12-16] MEDS: LOPRESSOR TAB 25 MG PO SCH (09:19)
[2017-12-16] MEDS: ELIQUIS PO SCH (09:19)
[2017-12-16] MEDS: COZAAR PO SCH (09:19)
[2017-12-16] MEDS: PREVACID PO SCH (09:19)
[2017-12-16] MEDS: HYDROCHLOROTHIAZIDE 25 MG TAB PO SCH (09:19)
--- NOTE | 2017-12-16 10:47 | PCM.PROG ---
Progress Note - Progress Note for Day of Date of Exam: 12/15/17 - Subjective Subjective: WAS ADMITTED FOR INTRACTABLE RIGHT HIP AND LEG PAIN WELL PAIN TO THE COCCYX. TODAY, SHE IS ALERT AND ORIENTED, LYING IN BED ON MORNING ROUNDS. SHE CONTINUES WITH PAIN TO THE HIP AND LEG, BUT CONTINUES REPORT SLIGHT IMPROVEMENT SINCE ADMISSION. SHE ALSO REPORTS A SEVERE HEADACHE TODAY. ON EXAMINATION, HEART IS REGULAR IN RATE AND RHYTHM. BILATERAL LUNGS ARE NOTED WITH DIMINISHED LUNG SOUNDS THROUGHOUT. ABDOMEN IS ROUND, SOFT, AND NON- TENDER WITH NORMAL BOWEL SOUNDS NOTED IN ALL QUADRANTS. THERE IS DECREASED RANGE OF MOTION NOTED TO THE RIGHT LEG. BILATERAL LEGS NOTED WITH TRACE EDEMA. HER VITALS TODAY ARE 98.6-62-20-97%-161/74. LABS WERE OBTAINED. ABNORMAL LAB VALUES INCLUDE THE FOLLOWING: WBC 3.3, HGB 11.3, HCT 32.4, PLT COUNT 121, BUN 21 , CREATININE 1.22, GLUCOSE 216, TOTAL PROTEIN 5.9, ALBUMIN 2.7. A LUMBAR SPINE CT WAS OBTAINED AND REVEALED: Multilevel lumbar spondylosis as described, with left L3/4 laminotomy. Mild spinal stenosis at L4/5. No significant neural foraminal stenosis. TODAY, WE WILL OBTAIN A BRAIN CT AND START HER ON ELIQUIS 2.5MG PO BID. OTHERWISE, WE WILL FOLLOW UP WITH AM LABS AND CONTINUE TO MONITOR PATIENT. - Past Medical Family Social History Past Med/Fam/Surg Hx: No changes since H&P Allergies: Allergies aspirin Allergy (Verified 02/01/17 10:07) morphine Adverse Reaction (Verified 12/15/17 07:03) - Review of Systems ROS: No change since H&P - Vital Signs and I&O's Vital Signs: Temperature 97.8 F Pulse Rate [Left Radial] 52 Respiratory Rate 18 Blood Pressure [Left Arm] 115/55 Blood Pressure [Right Arm] 160/89 Blood Pressure 128/62 O2 Sat by Pulse Oximetry 99 Intake and Output: Intake & Output 12/13/17 12/14/17 12/15/17 12/16/17 11:59 11:59 11:59 11:59 Intake Total 90 / 90 1754 / 1754 1360 / 1360 1480 / 1480 Output Total 4200 / 4200 2200 / 2200 Balance 90 / 90 -2446 / -2446 -840 / -840 1480 / 1480 - Physical Exam Oriented: Normal Eyes: Normal Ear: Normal Nose: Normal Throat: Normal Respiratory: Diminished Cardiovascular: Normal : Normal Auscultation: Bowel Sounds: Normal Palpation: Normal Tenderness: Normal Skin: Normal Musculoskeletal: Right, Hip, Leg, Back:Lumbar, Swelling, Tender Psychiatric: Normal Mood Description: Calm Affect: Normal Speech Pattern: Clear, Appropriate - Laboratory and Diagnostics Result Diagrams: 12/16/17 05:05 12/16/17 05:05 Labs: Laboratory WBC 4.1 X10^3/uL (3.6-10.0) 12/16/17 05:05 RBC 3.63 X10^6/uL (3.5-5.4) 12/16/17 05:05 Hgb 10.6 g/dL (12.0-16.0) L 12/16/17 05:05 Hct 30.7 % (36.0-47.0) L 12/16/17 05:05 MCV 84.5 fL (80.0-100.0) 12/16/17 05:05 MCH 29.3 pg (27.0-34.0) 12/16/17 05:05 MCHC 34.7 g/dL (33.0-35.0) 12/16/17 05:05 RDW 13.8 % (11.6-16.5) 12/16/17 05:05 Plt Count 117 X10^3/uL (150.0-450.0) L 12/16/17 05:05 MPV 8.8 fL (7.4-11.0) 12/16/17 05:05 Neut % (Auto) 59.4 % (42.0-75.0) 12/16/17 05:05 Lymph % (Auto) 28.4 % (21.0-51.0) 12/16/17 05:05 [place] % (Auto) 8.4 % (0.0-13.0) 12/16/17 05:05 Eos % (Auto) 3.2 % (0.9-2.9) H 12/16/17 05:05 Baso % (Auto) 0.6 % (0.2-1.0) 12/16/17 05:05 Neut # (Auto) 2.4 x10^3/uL (2.2-4.8) 12/16/17 05:05 Lymph # (Auto) 1.2 X10^3/uL (1.3-2.9) L 12/16/17 05:05 [place] # (Auto) 0.3 x10^3/uL (0.3-0.8) 12/16/17 05:05 Eos # (Auto) 0.1 x10^3/uL (0.0-0.2) 12/16/17 05:05 Baso # (Auto) 0.0 X10^3/uL (0.0-0.1) 12/16/17 05:05 Absolute Nucleated RBC 0.0 /100WBC 12/16/17 05:05 D-Dimer 190 ng/mL (0-400) 12/12/17 23:37 Sodium 138 mmol/L (136-145) 12/16/17 05:05 Corrected Sodium 139 mmol/L (136-145) 12/16/17 05:05 Potassium 3.5 mmol/L (3.5-5.1) 12/16/17 05:05 Chloride 104 mmol/L (98-107) 12/16/17 05:05 Carbon Dioxide 30.0 mmol/L (21-32) 12/16/17 05:05 BUN 25 mg/dL (7-18) H 12/16/17 05:05 Creatinine 1.30 mg/dL (0.55-1.02) H 12/16/17 05:05 Est GFR (MDRD) Af Amer 53 (>60) L 12/16/17 05:05 Est GFR (MDRD) Non-Af 44 (>60) L 12/16/17 05:05 Glucose 126 mg/dL (65-99) H 12/16/17 05:05 POC Glucose (mg/dL) 198 mg/dL (65-99) H 12/15/17 19:26 Calcium 8.5 mg/dL (8.5-10.1) 12/16/17 05:05 Corrected Calcium 9.6 mg/dL (8.5-10.1) 12/16/17 05:05 Magnesium 2.2 mg/dL (1.7-2.9) 12/14/17 04:32 Total Bilirubin 0.70 mg/dL (0.2-1.0) 12/16/17 05:05 AST 29 Units/L (15-37) 12/16/17 05:05 ALT 34 Units/L (12-78) 12/16/17 05:05 Alkaline Phosphatase 61 Units/L (46-116) 12/16/17 05:05 Total Protein 5.8 g/dL (6.4-8.2) L 12/16/17 05:05 Albumin 2.6 g/dL (3.4-5.0) L 12/16/17 05:05 Globulin 3.2 g/dL (2.5-4.5) 12/16/17 05:05 Albumin/Globulin Ratio 0.8 Ratio (1.1-2.1) L 12/16/17 05:05 - Plan (1) Intractable pain Status: Acute Plan: DEMEROL 25MG IV Q4H PRN PAIN, PERCOCET PRN PAIN, TORADOL IV Q6H PAIN, CONTINUE TO MONITOR (2) Radiculopathy of leg Status: Acute (3) Headache Status: Acute Qualifiers: Headache type: unspecified Headache chronicity pattern: acute headache Intractability: intractable Qualified Code(s): R51 - Headache Plan: OBTAIN BRAIN CT, CONTINUE TO MONITOR.
[2017-12-16] MEDS: HumuLIN R SUBCUT PRN (13:58)
[2017-12-16] MEDS: PERCOCET TAB 5/325 MG PO PRN (13:59)
[2017-12-16 15:25] VITALS: BP 127/60
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
== END 2017-12-16 14:00 | disposition home or self-care (01) | DRG 301 ==
LOC: MED/SURG
PROVIDERS: ADMIT Internal Medicine; ATTEND Internal Medicine
DX: M53.3 Sacrococcygeal disorders, not elsewhere classified; R51 Headache; M25.551 Pain in right hip; I10 Essential (primary) hypertension; R60.0 Localized edema; I82.412 Acute embolism and thrombosis of left femoral vein; J44.9 Chronic obstructive pulmonary disease, unspecified; E11.65 Type 2 diabetes mellitus with hyperglycemia; M47.896 Other spondylosis, lumbar region; E03.8 Other specified hypothyroidism; K21.9 Gastro-esophageal reflux disease without esophagitis; M79.661 Pain in right lower leg; M54.16 Radiculopathy, lumbar region
CPT/HCPCS: 36415; 70450; 72148; 80053; 83735; 85025; 85378; 93970; 94760; 94762; 97162; A4216; A4222; G0378; J1650; J1815; J1885; J2175; J2270; J2310; J2405; J3475; J3480; J7050

== ENCOUNTER 2023-07-08 13:18 | Inpatient (IN) ==
--- NOTE | 2023-07-08 13:29 | EKG ---
Test Reason : afib Blood Pressure : */* mmHG Vent. Rate : 126 BPM Atrial Rate : * BPM P-R Int : * ms QRS Dur : 100 ms QT Int : 344 ms P-R-T Axes : * 4 245 degrees QTc Int : 498 ms Atrial tachycardia Minimal voltage criteria for LVH, may be normal variant ( Dimitri product ) Nonspecific T wave abnormality Abnormal ECG No previous ECGs available Confirmed by Sudeep Harmon MD ([id number]) on 07/09/2023 7:40:59 AM Referred By: Confirmed By: Sudeep Harmon MD
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
[2023-07-08 13:33] VITALS: BMI 31.8
[2023-07-08 13:48] LABS: BASOPHILS % (AUTO) 0.7 % (0.2-1.0); EOSINOPHILS # (AUTO) 0.1 x10^3/uL (0.0-0.2); EOSINOPHILS % (AUTO) 2.1 % (0.9-2.9); HEMATOCRIT 42.2 % (36.0-47.0); LYMPHOCYTES # (AUTO) 1.5 X10^3/uL (1.3-2.9); LYMPHOCYTES % (AUTO) 23.5 % (21.0-51.0); MEAN CORPUSCULAR HEMOGLOBIN 29.2 pg (27.0-34.0); MEAN CORPUSCULAR HGB CONC 33.3 g/dL (33.0-35.0); MEAN CORPUSCULAR VOLUME 87.7 fL (80.0-100.0); MEAN PLATELET VOLUME 8.9 fL (7.4-11.0); MONOCYTES # (AUTO) 0.7 x10^3/uL (0.3-0.8); MONOCYTES % (AUTO) 10.4 % (0.0-13.0); NEUTROPHILS # (AUTO) 4.2 x10^3/uL (2.2-4.8); NEUTROPHILS % (AUTO) 63.3 % (42.0-75.0); PLATELET COUNT 120 X10^3/uL (150.0-450.0); RED BLOOD COUNT 4.81 X10^6/uL (3.5-5.4); RED CELL DISTRIBUTION WIDTH 13.7 % (11.6-16.5); WHITE BLOOD COUNT 6.6 X10^3/uL (3.6-10.0)
[2023-07-08] MEDS ORDERED: CARDIZEM INJ 50 MG VIAL ONE (13:48)
[2023-07-08] MEDS: CARDIZEM INJ 50 MG VIAL IVP ONE ×2 (13:53→14:34)
[2023-07-08 13:58] LABS: ALBUMIN 3.1 g/dL (3.4-5.0); CALCIUM 9.6 mg/dL (8.5-10.1); CARBON DIOXIDE 32.3 mmol/L (21-32); COR CA(FOR HYPOALB) 10.3 mg/dL (8.5-10.1); CREATININE 1.69 mg/dL (0.55-1.02); POTASSIUM 3.4 mmol/L (3.5-5.1); TOTAL PROTEIN 6.8 g/dL (6.4-8.2)
[2023-07-08] MEDS ORDERED: K-RIDER 10 MEQ/100 ML WATER 10 MEQ/100 ML BAG IV ONE (14:21)
[2023-07-08] MEDS ORDERED: NS 1,000 ML IV 1,000 ML ONE (14:22)
--- NOTE | 2023-07-08 14:29 | RAD ---
EXAM:CHEST, 1 VIEWHISTORY:Atrial fibrillationCOMPARISON:None available.FINDINGS:The trachea is midline. The cardiac silhouette is unremarkable . The lungs are clear without focal infiltrate or effusion. The bony thorax is unremarkable.IMPRESSION:No acute cardiopulmonary disease.THIS IS AN ELECTRONICALLY VERIFIED FINAL REPORT07/08/2023 2:25 PM - Electronically signed by Víctor Livingston MD
[2023-07-08] MEDS: K-RIDER 10 MEQ/100 ML WATER 10 MEQ/100 ML BAG IV ONE (14:33)
[2023-07-08] MEDS: NS 1,000 ML IV 1,000 ML IV ONE (14:34)
[2023-07-08] MEDS ORDERED: NS 100 ML IV 100 ML ONE (16:15)
[2023-07-08] MEDS ORDERED: CARDIZEM INJ 125 MG VIAL ONE (16:15)
[2023-07-08] MEDS ORDERED: PEPCID TAB 40 MG PO PRN (16:30)
[2023-07-08] MEDS ORDERED: VOLTAREN 1 % GEL MULTI DOSE TUBE TOP PRN (16:30)
[2023-07-08] MEDS: CARDIZEM INJ 125 MG VIAL 125 MG in NS 100 ML IV 100 ML IV PRN (16:31)
[2023-07-08] MEDS: NS 1,000 ML IV 1,000 ML IV SCH (17:59)
[2023-07-08] MEDS: NovoLIN R (or HumuLIN R) SUBCUT PRN (18:06)
[2023-07-08] MEDS: SNACK - Diabetic Appropriate PO SCH (20:11)
--- NOTE | 2023-07-08 20:12 | EKG ---
Test Reason : afib Blood Pressure : */* mmHG Vent. Rate : 105 BPM Atrial Rate : * BPM P-R Int : * ms QRS Dur : 96 ms QT Int : 276 ms P-R-T Axes : * 18 223 degrees QTc Int : 364 ms Atrial fibrillation with rapid ventricular response Nonspecific T wave abnormality Abnormal ECG When compared with ECG of 08-JUL-2023 13:26, (Unconfirmed) Nonspecific T wave abnormality, worse in Anterolateral leads Confirmed by Sudeep Harmon MD ([id number]) on 07/09/2023 7:31:42 AM Referred By: Confirmed By: Sudeep Harmon MD
[2023-07-08] MEDS: PULMICORT NEB TX 0.5 MG NEB SCH (21:00)
[2023-07-08] MEDS ORDERED: REFLEX: PROVENTIL NEB & PulmiCORT NEB~ NEB SCH (21:00)
[2023-07-08] MEDS: NexIUM PO SCH (21:21)
[2023-07-08] MEDS: ELAVIL PO SCH (21:21)
[2023-07-08] MEDS: REGLAN TAB 5 MG PO SCH (21:23)
[2023-07-08] MEDS: SINGULAIR TAB 10 MG PO SCH (21:23)
[2023-07-08] MEDS: ZOCOR TAB 40 MG PO SCH (21:23)
--- NOTE | 2023-07-09 02:30 | EKG ---
Test Reason : afib Blood Pressure : */* mmHG Vent. Rate : 91 BPM Atrial Rate : * BPM P-R Int : * ms QRS Dur : 96 ms QT Int : 234 ms P-R-T Axes : * 16 221 degrees QTc Int : 287 ms Atrial fibrillation Nonspecific ST and T wave abnormality Abnormal ECG When compared with ECG of 08-JUL-2023 19:56, (Unconfirmed) QT has shortened Confirmed by Sudeep Harmon MD ([id number]) on 07/09/2023 7:30:25 AM Referred By: Confirmed By: Sudeep Harmon MD
[2023-07-09 05:48] LABS: BASOPHILS % (AUTO) 0.9 % (0.2-1.0); EOSINOPHILS # (AUTO) 0.2 x10^3/uL (0.0-0.2); HEMATOCRIT 38.2 % (36.0-47.0); HEMOGLOBIN 12.7 g/dL (12.0-16.0); LYMPHOCYTES # (AUTO) 0.9 X10^3/uL (1.3-2.9); MEAN CORPUSCULAR HGB CONC 33.3 g/dL (33.0-35.0); MEAN CORPUSCULAR VOLUME 87.2 fL (80.0-100.0); MEAN PLATELET VOLUME 9.2 fL (7.4-11.0); MONOCYTES # (AUTO) 0.4 x10^3/uL (0.3-0.8); MONOCYTES % (AUTO) 12.5 % (0.0-13.0); NEUTROPHILS # (AUTO) 1.7 x10^3/uL (2.2-4.8); NEUTROPHILS % (AUTO) 52.6 % (42.0-75.0); PLATELET COUNT 106 X10^3/uL (150.0-450.0); RED BLOOD COUNT 4.38 X10^6/uL (3.5-5.4); RED CELL DISTRIBUTION WIDTH 13.3 % (11.6-16.5); WHITE BLOOD COUNT 3.2 X10^3/uL (3.6-10.0)
[2023-07-09 05:58] LABS: ALBUMIN 2.7 g/dL (3.4-5.0); CALCIUM 8.8 mg/dL (8.5-10.1); CARBON DIOXIDE 31.7 mmol/L (21-32); COR CA(FOR HYPOALB) 9.8 mg/dL (8.5-10.1); CREATININE 1.43 mg/dL (0.55-1.02); MAGNESIUM 1.6 mg/dL (2.0-2.9); POTASSIUM 3.1 mmol/L (3.5-5.1); TOTAL PROTEIN 6.1 g/dL (6.4-8.2)
[2023-07-09] MEDS: SYNTHROID 50 mcg TAB PO SCH (06:17)
[2023-07-09] MEDS ORDERED: CONSULT PHARMACY - POTASSIUM & MAGNESIUM XX SCH (07:00)
[2023-07-09] MEDS ORDERED: LOVENOX INJ 30 MG SYR SC SCH (09:00)
[2023-07-09] MEDS ORDERED: DILTIAZEM HCL 180 MG PO SCH (09:00)
[2023-07-09] MEDS ORDERED: CARDIZEM TAB 30 MG PLAIN PO SCH (10:00)
[2023-07-09] MEDS: NS + KCL 20 MEQ/L 1,000 ML with MAGNESIUM SULFATE 50% INJ VIAL 1 G IV SCH (10:05)
[2023-07-09] MEDS: ELIQUIS PO SCH (10:07)
[2023-07-09] MEDS: CARDIZEM TAB 30 MG PLAIN PO SCH (10:07)
[2023-07-09] MEDS: PEPCID TAB 40 MG PO PRN (10:08)
[2023-07-09] MEDS ORDERED: MIRALAX POWDER (1 DOSE 17 G) PO PRN (10:27)
--- NOTE | 2023-07-09 10:50 | DR.H&P ---
H&P History & Physical for Day of: H&P Date: 07/09/23 Chief Complaint Chief Complaint: Palpitations Allergies Allergies Allergy/AdvReac Type Severity Reaction Status Date / Time codeine Allergy Verified 05/27/19 13:02 History of Present Illness History of Present Illness: Patient is a 73-year-old female with past medical history of hypertension, hypothyroidism, diabetes, COPD presenting with palpitations. She was recently seen by her PCP and was started on oral diltiazem. She came to the ED when she felt some discomfort in her chest. Labs/imaging: WBC 3.2, hemoglobin 12.7, platelets 106, sodium 145, potassium 3.1, creatinine 1.43, glucose 133, D-dimer 0.57, troponin negative x 3, COVID/flu/RSV negative, chest x-ray no acute cardiopulmonary findings. Patient was admitted for atrial fibrillation with RVR, hypokalemia, hypomagnesia. She was started on diltiazem gtt. will start on po diltiazem to determine extended release dose. Wean/titrate diltiazem gtt per protocol. Will also consult cardiology-Dr Harmon for further evaluation and management. Replace electrolytes per protocol. Continue monitoring on telemetry. Restart home medications. Continue closely monitor and follow-up labs/imaging and cardiology recommendations. Past Medical History Past Medical History: Arthritis, Asthma, COPD, Diabetes, GERD, Hypertension and Hypothyroidism Past Surgical History Surgical History: Appendectomy, Cholecystectomy, Hysterectomy and Ortho Surgery Family History Family Medical History: Diabetes Mellitus, Cancer, Heart Failure, Sudden Cardiac and Hypertension Social History Does patient currently use any type of tobacco product: No Have you used tobacco products in the last 12 months: No Type of Tobacco Use: None Does any household member use tobacco: No Alcohol Use: None Drug Use: None Medications Home Medications: Home Medications Medication Instructions Recorded Confirmed Type hydrochlorothiazide 25 mg tablet 25 mg PO DAILY 03/05/12 07/08/23 History amitriptyline 50 mg tablet 50 mg PO HS 12/13/17 07/08/23 History levothyroxine 50 mcg tablet 50 mcg PO HS 12/13/17 07/08/23 History montelukast 10 mg tablet 10 mg PO HS 12/13/17 07/08/23 History ondansetron 8 mg disintegrating 8 mg translingual TID PRN 12/13/17 07/08/23 History tablet simvastatin 40 mg tablet 40 mg PO HS 12/13/17 07/08/23 History budesonide-formoterol HFA 160 2 puff inhalation BID 07/08/23 07/08/23 History mcg-4.5 mcg/actuation aerosol inhaler diclofenac sodium 1 % topical gel 2 g topical QID 07/08/23 07/08/23 History diltiazem HCl 180 mg 180 mg PO QAM 07/08/23 07/08/23 History tablet,extended release 24 hr (Matzim [place]) esomeprazole magnesium 40 mg 40 mg PO QDAY 07/08/23 07/08/23 History capsule,delayed release famotidine 40 mg tablet 40 mg PO BID 07/08/23 07/08/23 History hydromorphone 2 mg tablet 2 mg PO Q4-6H PRN 07/08/23 07/08/23 History levothyroxine 50 mcg tablet 50 mcg PO QDAY 07/08/23 07/08/23 History levothyroxine 50 mcg tablet 50 mcg PO QAM 07/08/23 07/08/23 History (Synthroid) metoclopramide HCl 5 mg tablet 5 mg PO QACHS 07/08/23 07/08/23 History (Reglan) promethazine 25 mg tablet 25 mg PO Q4-6H PRN 07/08/23 07/08/23 History tirzepatide 5 mg/0.5 mL 5 mg subcut QWEEK 07/08/23 07/08/23 History subcutaneous pen injector (Mounjaro) tramadol 50 mg tablet 50 mg PO Q6H PRN 07/08/23 07/08/23 History Labs 07/09/23 05:14 07/09/23 05:14 Labs: Laboratory WBC 3.2 X10^3/uL (3.6-10.0) L 07/09/23 05:14 RBC 4.38 X10^6/uL (3.5-5.4) 07/09/23 05:14 Hgb 12.7 g/dL (12.0-16.0) 07/09/23 05:14 Hct 38.2 % (36.0-47.0) 07/09/23 05:14 MCV 87.2 fL (80.0-100.0) 07/09/23 05:14 MCH 29.0 pg (27.0-34.0) 07/09/23 05:14 MCHC 33.3 g/dL (33.0-35.0) 07/09/23 05:14 RDW 13.3 % (11.6-16.5) 07/09/23 05:14 Plt Count 106 X10^3/uL (150.0-450.0) L 07/09/23 05:14 MPV 9.2 fL (7.4-11.0) 07/09/23 05:14 Neut % (Auto) 52.6 % (42.0-75.0) 07/09/23 05:14 Lymph % (Auto) 29.0 % (21.0-51.0) 07/09/23 05:14 [place] % (Auto) 12.5 % (0.0-13.0) 07/09/23 05:14 Eos % (Auto) 5.0 % (0.9-2.9) H 07/09/23 05:14 Baso % (Auto) 0.9 % (0.2-1.0) 07/09/23 05:14 Neut # (Auto) 1.7 x10^3/uL (2.2-4.8) L 07/09/23 05:14 Lymph # (Auto) 0.9 X10^3/uL (1.3-2.9) L 07/09/23 05:14 [place] # (Auto) 0.4 x10^3/uL (0.3-0.8) 07/09/23 05:14 Eos # (Auto) 0.2 x10^3/uL (0.0-0.2) 07/09/23 05:14 Baso # (Auto) 0.0 X10^3/uL (0.0-0.1) 07/09/23 05:14 Absolute Nucleated RBC 0.1 /100WBC 07/09/23 05:14 D-Dimer 0.57 ug/ml (0.0-0.57) 07/09/23 05:14 Sodium 145 mmol/L (136-145) 07/09/23 05:14 Corrected Sodium 146 mmol/L (136-145) H 07/09/23 05:14 Potassium 3.1 mmol/L (3.5-5.1) L 07/09/23 05:14 Chloride 106 mmol/L (98-107) 07/09/23 05:14 Carbon Dioxide 31.7 mmol/L (21-32) 07/09/23 05:14 BUN 27 mg/dL (7-18) H 07/09/23 05:14 Creatinine 1.43 mg/dL (0.55-1.02) H 07/09/23 05:14 Est GFR (MDRD) Af Amer 46 (>60) L 07/09/23 05:14 Est GFR (MDRD) Non-Af 38 (>60) L 07/09/23 05:14 Glucose 133 mg/dL (65-99) H 07/09/23 05:14 POC Glucose (mg/dL) 128 mg/dL (65-99) H 07/09/23 06:01 Calcium 8.8 mg/dL (8.5-10.1) 07/09/23 05:14 Corrected Calcium 9.8 mg/dL (8.5-10.1) 07/09/23 05:14 Magnesium 1.6 mg/dL (2.0-2.9) L 07/09/23 05:14 Total Bilirubin 0.60 mg/dL (0.2-1.0) 07/09/23 05:14 AST 20 Units/L (15-37) 07/09/23 05:14 ALT 17 Units/L (12-78) 07/09/23 05:14 Alkaline Phosphatase 61 Units/L (46-116) 07/09/23 05:14 Troponin I High Sens 10.4 ng/L (4.0-60.0) 07/09/23 02:05 Total Protein 6.1 g/dL (6.4-8.2) L 07/09/23 05:14 Albumin 2.7 g/dL (3.4-5.0) L 07/09/23 05:14 Globulin 3.4 g/dL (2.5-4.5) 07/09/23 05:14 Albumin/Globulin Ratio 0.8 Ratio (1.1-2.1) L 07/09/23 05:14 TSH 3rd Generation 4.944 uIU/mL (0.358-3.74) H 07/09/23 05:14 SARS-CoV-2 (PCR) Negative (NEGATIVE) 07/08/23 13:43 Influenza Type A (PCR) Negative (NEGATIVE) 07/08/23 13:43 Influenza Type B (PCR) Negative (NEGATIVE) 07/08/23 13:43 RSV (PCR) Negative (NEGATIVE) 07/08/23 13:43 Review of Systems Constitutional: No Symptoms Reported Eyes: No Symptoms Reported ENT: No Symptoms Reported Respiratory: No Symptoms Reported Cardiovascular: Palpitations Gastrointestinal: No Symptoms Reported Genitourinary: No Symptoms Reported Musculoskeletal: No Symptoms Reported Skin: No Symptoms Reported Neurological: No Symptoms Reported Physical Exam Vital Signs: Vital Signs Temperature 98.1 F Temperature 98 F Pulse Rate 127 Pulse Rate 120 Pulse Rate 101 Pulse Rate 115 Pulse Rate 75 Pulse Rate 77 Respiratory Rate 23 Respiratory Rate 26 Respiratory Rate 16 Respiratory Rate 17 Respiratory Rate 15 Respiratory Rate 20 Blood Pressure 127/84 Blood Pressure 146/62 Blood Pressure 107/78 Blood Pressure 104/55 Blood Pressure 97/73 Blood Pressure 130/90 O2 Sat by Pulse Oximetry 100 O2 Sat by Pulse Oximetry 100 O2 Sat by Pulse Oximetry 99 O2 Sat by Pulse Oximetry 99 O2 Sat by Pulse Oximetry 99 O2 Sat by Pulse Oximetry 99 Oriented: Normal Eyes: Normal Ear: Normal Nose: Normal Throat: Normal Respiratory: Clear Throughout Cardiovascular: Tachycardia and Irregular : Normal Auscultation: Bowel Sounds: Normal Palpation: Normal Tenderness: Normal Skin: Normal Musculoskeletal: Normal Psychiatric: Normal Mood Description: Calm and Appropriate Affect: Normal Speech Pattern: Clear and Appropriate Assessment/Plan (1) Atrial fibrillation with rapid ventricular response: Status: Acute Plan: Continue diltiazem gtt, start on po cardizem and eliquis Consult cardiology, continue telemetry Follow up recommendations (2) Hypokalemia: Status: Acute Plan: Replete per protocol (3) Hypomagnesemia: Status: Acute Review H&P Reviewed: Yes Patient was examined?: Yes
--- NOTE | 2023-07-09 14:11 | DR.CONSULT ---
CONSULT Consultation for Day of: Date: 07/09/23 Chief Complaint Chief Complaint: 3 months of feeling poor/no energy/sob/no ex robyn Allergies Allergies Allergy/AdvReac Type Severity Reaction Status Date / Time codeine Allergy Verified 05/27/19 13:02 History of Present Illness History of Present Illness: dm/htn/hlp- no smoke- no known cad- had stroke years ago on doac ( ? afib)- 3 weeks ago nurse told her abnormal heart rtyhtm from tramsmitted bp/hr readings- in er: oswaldo yesterday thus admitted- home med included statin/bb/doac Past Medical History Past Medical History: Arthritis, Asthma, COPD, Diabetes, GERD, Hypertension and Hypothyroidism Past Surgical History Surgical History: Appendectomy, Cholecystectomy, Hysterectomy and Ortho Surgery Family History Family Medical History: Diabetes Mellitus, Cancer, Heart Failure, Sudden Cardiac and Hypertension Social History Does patient currently use any type of tobacco product: No Have you used tobacco products in the last 12 months: No Type of Tobacco Use: None Does any household member use tobacco: No Alcohol Use: None Drug Use: None Medications Home Medications: codeine Allergy (Verified 05/27/19 13:02) CONTINUE taking the following medications budesonide-formoterol HFA 160 mcg-4.5 mcg/actuation aerosol inhaler 2 puff inhalation BID 07/08/23 [History] diclofenac sodium 1 % topical gel 2 g topical QID 07/08/23 [History] diltiazem HCl 180 mg tablet,extended release 24 hr (Matzim [place]) 180 mg PO QAM 07/08/23 [History] esomeprazole magnesium 40 mg capsule,delayed release 40 mg PO QDAY 07/08/23 [History] famotidine 40 mg tablet 40 mg PO BID 07/08/23 [History] hydromorphone 2 mg tablet 2 mg PO Q4-6H PRN 07/08/23 [History] levothyroxine 50 mcg tablet 50 mcg PO QDAY 07/08/23 [History] levothyroxine 50 mcg tablet (Synthroid) 50 mcg PO QAM 07/08/23 [History] metoclopramide HCl 5 mg tablet (Reglan) 5 mg PO QACHS 07/08/23 [History] promethazine 25 mg tablet 25 mg PO Q4-6H PRN 07/08/23 [History] tirzepatide 5 mg/0.5 mL subcutaneous pen injector (Mounjaro) 5 mg subcut QWEEK 07/08/23 [History] tramadol 50 mg tablet 50 mg PO Q6H PRN 07/08/23 [History] Physical Exam Vital Signs: Vital Signs Temperature 98.1 F Pulse Rate 128 Pulse Rate 130 Pulse Rate 127 Pulse Rate 120 Respiratory Rate 27 Respiratory Rate 28 Respiratory Rate 23 Respiratory Rate 26 Blood Pressure 147/75 Blood Pressure 119/86 Blood Pressure 127/84 Blood Pressure 146/62 O2 Sat by Pulse Oximetry 98 O2 Sat by Pulse Oximetry 100 O2 Sat by Pulse Oximetry 100 O2 Sat by Pulse Oximetry 100 alert ox3 nad irreg irreg no bruits clear lung soft mary lou mild edema echo: pending labs: hct 38 plt 106 k 3.1 ( given K)- cr 1.4 tsh 4.9 alb 2.7 cxr : NAD Plan (1) Atrial fibrillation with rapid ventricular response: Status: Acute Narrative Support Text: suspect few months duration due to sx Plan: rate control with bb/ccb- cont doac- check echo- consider gurjit/cv (2) Hypokalemia: Status: Acute Narrative Support Text: treated (3) Hyperlipidemia: Status: Chronic (4) Diabetes mellitus, type 2: Status: Chronic (5) Hypertension: Status: Acute
[2023-07-09] MEDS: LOPRESSOR TAB 25 MG PO SCH (14:40)
[2023-07-09] MEDS: NEXTERONE IV 150 MG PREMIX* 150 MG/100 ML BAG IV ONE (20:06)
[2023-07-09] MEDS: NEXTERONE IV 360 MG PREMIX* 360 MG/200 ML BAG IV PRN (20:23)
[2023-07-09] MEDS: XOPENEX 1.25 MG/3 ML NEBULE NEB ONE (21:25)
[2023-07-09] MEDS: LASIX IVP ONE (21:26)
[2023-07-09] MEDS: ZOFRAN TAB 4 MG PO ONE (21:33)
[2023-07-09 22:01] LABS: BILIRUBIN,URINE NEGATIVE (NEGATIVE); BLOOD/HEMOGLOBIN,URINE 1+ (NEGATIVE); GLUCOSE, URINE 4+ (NEGATIVE); KETONES,URINE NEGATIVE (NEGATIVE); LEUKOCYTE ESTERASE ,URINE NEGATIVE (NEGATIVE); NITRITES,URINE NEGATIVE (NEGATIVE); PROTEIN,URINE NEGATIVE (NEGATIVE); UROBILINOGEN,URINE NORMAL (NORMAL)
[2023-07-09 22:06] LABS: APPEARANCE,URINE CLEAR (CLEAR); COLOR,URINE PALE YELLOW (YELLOW)
[2023-07-09 22:07] LABS: BACTERIA,URINE TRACE /HPF (NEGATIVE); SQUAMOUS EPITHELIAL CELL,UR FEW /HPF (NEGATIVE)
[2023-07-10] MEDS: NEXTERONE IV 360 MG PREMIX* 360 MG/200 ML BAG IV PRN (01:52)
[2023-07-10 05:29] LABS: BASOPHILS % (AUTO) 0.3 % (0.2-1.0); EOSINOPHILS % (AUTO) 0.3 % (0.9-2.9); HEMATOCRIT 44.3 % (36.0-47.0); LYMPHOCYTES # (AUTO) 0.6 X10^3/uL (1.3-2.9); LYMPHOCYTES % (AUTO) 6.2 % (21.0-51.0); MEAN CORPUSCULAR HEMOGLOBIN 29.4 pg (27.0-34.0); MEAN CORPUSCULAR HGB CONC 33.6 g/dL (33.0-35.0); MEAN CORPUSCULAR VOLUME 87.2 fL (80.0-100.0); MEAN PLATELET VOLUME 9.3 fL (7.4-11.0); MONOCYTES # (AUTO) 0.4 x10^3/uL (0.3-0.8); MONOCYTES % (AUTO) 4.9 % (0.0-13.0); NEUTROPHILS % (AUTO) 88.3 % (42.0-75.0); PLATELET COUNT 139 X10^3/uL (150.0-450.0); RED BLOOD COUNT 5.08 X10^6/uL (3.5-5.4); RED CELL DISTRIBUTION WIDTH 13.8 % (11.6-16.5); WHITE BLOOD COUNT 9.1 X10^3/uL (3.6-10.0)
[2023-07-10 05:38] LABS: CALCIUM 8.6 mg/dL (8.5-10.1); CARBON DIOXIDE 34.5 mmol/L (21-32); COR CA(FOR HYPOALB) 9.4 mg/dL (8.5-10.1); CREATININE 1.51 mg/dL (0.55-1.02); MAGNESIUM 1.9 mg/dL (2.0-2.9); POTASSIUM 4.2 mmol/L (3.5-5.1); TOTAL PROTEIN 6.8 g/dL (6.4-8.2)
[2023-07-10 05:44] LABS: HEMOGLOBIN 14.9 g/dL (12.0-16.0)
[2023-07-10] MEDS: ELIQUIS PO ONE (05:44)
[2023-07-10] MEDS: NEXTERONE IV 150 MG PREMIX* 150 MG/100 ML BAG IV ONE (07:37)
[2023-07-10] MEDS: ZOFRAN INJ 4 MG VIAL ONE (07:38)
[2023-07-10] MEDS: PULMICORT NEB TX 0.5 MG NEB ONE (07:38)
[2023-07-10] MEDS: XOPENEX 1.25 MG/3 ML NEBULE NEB ONE (07:38)
--- NOTE | 2023-07-10 07:54 | NOTE.SOAP ---
Soap Note Note for Day of Date of Exam: 07/10/23 Subjective Data Subjective Data: pt went into resp distress last pm- lasix promoted 1200 ml urine- still sob- cxr today: pulm edema- still in afib hr 120- echo: good LV , mod mr- cant do gurjit/cv today until out of chf Objective Data Objective Data: 130/70 p 120 afib on 02 mask RR 26 lungs junky , mild wheeze cor: irreg irreg minimla edema labs: k 4.2 cr 1.6 Assessment Assessment: afib not so well rate controlled- acute pulm edema( from ivfs but only 70 ml/hr)- worried over ischemia Plan Plan: cut back fluids/diuresis/ add oral ccb for hr < 100 hopeefully- cont iv then po amio- once out of chf: gurjit ( look at mr) /cv- check trop/ekg/bnp
[2023-07-10] MEDS: LASIX IVP ONE (08:11)
[2023-07-10] MEDS: CARDIZEM TAB 30 MG PLAIN PO SCH ×2 (08:11→13:33)
--- NOTE | 2023-07-10 08:38 | EKG ---
Test Reason : arrythmia Blood Pressure : */* mmHG Vent. Rate : 124 BPM Atrial Rate : * BPM P-R Int : * ms QRS Dur : 92 ms QT Int : 280 ms P-R-T Axes : * 1 101 degrees QTc Int : 402 ms Atrial fibrillation with rapid ventricular response Nonspecific T wave abnormality Abnormal ECG When compared with ECG of 09-JUL-2023 02:14, No significant change was found Confirmed by Sudeep Harmon MD ([id number]) on 07/10/2023 8:48:37 AM Referred By: Confirmed By: Sudeep Harmon MD
[2023-07-10] MEDS: CARDIZEM INJ 125 MG VIAL 125 MG in NS 100 ML IV 100 ML IV PRN (10:37)
[2023-07-10] MEDS: SOLU-Medrol 125 MG VIAL IVP ONE (10:37)
--- NOTE | 2023-07-10 11:39 | RAD ---
EXAM: CHEST, 1 VIEW HISTORY: Shortness of breath, AFib COMPARISON: 07/08/2023 FINDINGS: The trachea is midline. The cardiac silhouette is enlarged with a tortuous thoracic aorta . Increas ed interstitial changes with prominent vascular markings are observed consistent with underlying CHF. . The bony thorax is unremarkable. IMPRESSION: Increased interstitial changes with prominent vascular markings are observed consistent with underlyi ng CHF. THIS IS AN ELECTRONICALLY VERIFIED FINAL REPORT 07/10/2023 11:36 AM - Electronically signed by Víctor Livingston MD
[2023-07-10] MEDS: LOPRESSOR TAB 25 MG PO SCH (13:32)
[2023-07-10] MEDS ORDERED: CORDARONE TAB 200 MG PO SCH (17:00)
[2023-07-11 05:14] LABS: BASOPHILS % (AUTO) 0.1 % (0.2-1.0); HEMATOCRIT 42.3 % (36.0-47.0); LYMPHOCYTES # (AUTO) 0.5 X10^3/uL (1.3-2.9); LYMPHOCYTES % (AUTO) 6.3 % (21.0-51.0); MEAN CORPUSCULAR HEMOGLOBIN 29.1 pg (27.0-34.0); MEAN CORPUSCULAR HGB CONC 33.2 g/dL (33.0-35.0); MEAN CORPUSCULAR VOLUME 87.6 fL (80.0-100.0); MEAN PLATELET VOLUME 9.2 fL (7.4-11.0); MONOCYTES # (AUTO) 0.3 x10^3/uL (0.3-0.8); MONOCYTES % (AUTO) 4.4 % (0.0-13.0); NEUTROPHILS % (AUTO) 89.2 % (42.0-75.0); PLATELET COUNT 133 X10^3/uL (150.0-450.0); RED BLOOD COUNT 4.83 X10^6/uL (3.5-5.4); RED CELL DISTRIBUTION WIDTH 13.7 % (11.6-16.5); WHITE BLOOD COUNT 7.8 X10^3/uL (3.6-10.0)
[2023-07-11 05:28] LABS: ALBUMIN 2.6 g/dL (3.4-5.0); CALCIUM 8.7 mg/dL (8.5-10.1); CARBON DIOXIDE 32.9 mmol/L (21-32); COR CA(FOR HYPOALB) 9.8 mg/dL (8.5-10.1); CREATININE 1.7 mg/dL (0.55-1.02); MAGNESIUM 1.8 mg/dL (2.0-2.9); POTASSIUM 3.8 mmol/L (3.5-5.1); TOTAL PROTEIN 6.5 g/dL (6.4-8.2)
[2023-07-11] MEDS ORDERED: CONSULT PHARMACY - POTASSIUM & MAGNESIUM XX SCH (06:00)
--- NOTE | 2023-07-11 07:18 | EKG ---
Test Reason : < hr, ? block Blood Pressure : */* mmHG Vent. Rate : 65 BPM Atrial Rate : * BPM P-R Int : * ms QRS Dur : 92 ms QT Int : 512 ms P-R-T Axes : * 3 23 degrees QTc Int : 532 ms Atrial fibrillation Low voltage QRS Nonspecific T wave abnormality Prolonged QT Abnormal ECG When compared with ECG of 10-JUL-2023 08:13, Vent. rate has decreased BY 59 BPM Nonspecific T wave abnormality, improved in Lateral leads Confirmed by Sudeep Harmon MD ([id number]) on 07/12/2023 8:24:27 AM Referred By: Confirmed By: Sudeep Harmon MD
[2023-07-11] MEDS: K-DUR TAB 20 MEQ PO SCH (09:17)
--- NOTE | 2023-07-11 10:22 | DR.PROGNOT ---
HOSPITAL PROGRESS NOTE Progress Note for Day of: Progress Note Date: 07/11/23 History of Present Illness History of Present Illness: 73 y/o female admitted with atrial fib, RVR. Pt feels well this am. Would prefer to go home. Had drop in heart rate, to the 30's , while on the cardizem drip. Drip was held this am. Denies chest pain, shortness of breath. Past Medical Family Social History Allergies: Allergies codeine Allergy (Verified 05/27/19 13:02) Vital Signs Vital Signs: Vital Signs Pulse Rate 76 Pulse Rate 76 Pulse Rate 97 Pulse Rate 79 Pulse Rate 97 Pulse Rate 106 Pulse Rate 106 Pulse Rate 99 Pulse Rate 75 Pulse Rate 65 Pulse Rate 64 Pulse Rate 82 Pulse Rate 64 Pulse Rate 67 Pulse Rate 77 Pulse Rate 91 Pulse Rate 110 Pulse Rate 105 Pulse Rate 106 Pulse Rate 99 Pulse Rate 72 Pulse Rate 96 Pulse Rate 104 Pulse Rate 103 Pulse Rate 92 Pulse Rate 85 Respiratory Rate 22 Respiratory Rate 18 Respiratory Rate 29 Respiratory Rate 33 Respiratory Rate 32 Respiratory Rate 34 Respiratory Rate 37 Respiratory Rate 36 Respiratory Rate 34 Respiratory Rate 18 Respiratory Rate 22 Respiratory Rate 20 Respiratory Rate 20 Respiratory Rate 18 Respiratory Rate 20 Respiratory Rate 24 Respiratory Rate 24 Respiratory Rate 22 Respiratory Rate 19 Respiratory Rate 20 Respiratory Rate 23 Respiratory Rate 26 Respiratory Rate 17 Respiratory Rate 20 Respiratory Rate 17 Blood Pressure 111/69 Blood Pressure 111/69 Blood Pressure 111/69 Blood Pressure 112/68 Blood Pressure 123/67 Blood Pressure 106/83 Blood Pressure 98/62 Blood Pressure 126/57 Blood Pressure 114/82 Blood Pressure 107/58 Blood Pressure 113/53 Blood Pressure 98/62 Blood Pressure 101/52 Blood Pressure 107/56 Blood Pressure 105/68 Blood Pressure 118/58 Blood Pressure 117/67 Blood Pressure 98/71 Blood Pressure 104/75 Blood Pressure 118/59 Blood Pressure 96/52 Blood Pressure 114/57 Blood Pressure 109/59 Blood Pressure 111/65 O2 Sat by Pulse Oximetry 96 O2 Sat by Pulse Oximetry 96 O2 Sat by Pulse Oximetry 99 O2 Sat by Pulse Oximetry 94 O2 Sat by Pulse Oximetry 95 O2 Sat by Pulse Oximetry 95 O2 Sat by Pulse Oximetry 95 O2 Sat by Pulse Oximetry 94 O2 Sat by Pulse Oximetry 95 O2 Sat by Pulse Oximetry 96 O2 Sat by Pulse Oximetry 96 O2 Sat by Pulse Oximetry 96 O2 Sat by Pulse Oximetry 96 O2 Sat by Pulse Oximetry 96 O2 Sat by Pulse Oximetry 98 O2 Sat by Pulse Oximetry 97 O2 Sat by Pulse Oximetry 97 O2 Sat by Pulse Oximetry 98 O2 Sat by Pulse Oximetry 98 O2 Sat by Pulse Oximetry 98 O2 Sat by Pulse Oximetry 98 O2 Sat by Pulse Oximetry 97 O2 Sat by Pulse Oximetry 99 O2 Sat by Pulse Oximetry 97 O2 Sat by Pulse Oximetry 98 O2 Sat by Pulse Oximetry 97 Physical Exam Oriented: Normal Eyes: Normal Respiratory: Normal Cardiovascular: Irregular (rate controlled at present. ) : Normal GI:Auscultation: Normal GI:Palpation: Normal GI: Tenderness: Normal Skin: Normal Musculoskeletal: Normal (no edema) Psychiatric: Normal Mood Description: Calm and Appropriate Affect: Normal Speech Pattern: Clear and Appropriate Laboratory and Diagnostics 07/11/23 04:32 07/11/23 04:32 Labs: Laboratory WBC 7.8 X10^3/uL (3.6-10.0) 07/11/23 04:32 RBC 4.83 X10^6/uL (3.5-5.4) 07/11/23 04:32 Hgb 14.0 g/dL (12.0-16.0) 07/11/23 04:32 Hct 42.3 % (36.0-47.0) 07/11/23 04:32 MCV 87.6 fL (80.0-100.0) 07/11/23 04:32 MCH 29.1 pg (27.0-34.0) 07/11/23 04:32 MCHC 33.2 g/dL (33.0-35.0) 07/11/23 04:32 RDW 13.7 % (11.6-16.5) 07/11/23 04:32 Plt Count 133 X10^3/uL (150.0-450.0) L 07/11/23 04:32 MPV 9.2 fL (7.4-11.0) 07/11/23 04:32 Neut % (Auto) 89.2 % (42.0-75.0) H 07/11/23 04:32 Lymph % (Auto) 6.3 % (21.0-51.0) L 07/11/23 04:32 [place] % (Auto) 4.4 % (0.0-13.0) 07/11/23 04:32 Eos % (Auto) 0.0 % (0.9-2.9) L 07/11/23 04:32 Baso % (Auto) 0.1 % (0.2-1.0) L 07/11/23 04:32 Neut # (Auto) 7.0 x10^3/uL (2.2-4.8) H 07/11/23 04:32 Lymph # (Auto) 0.5 X10^3/uL (1.3-2.9) L 07/11/23 04:32 [place] # (Auto) 0.3 x10^3/uL (0.3-0.8) 07/11/23 04:32 Eos # (Auto) 0.0 x10^3/uL (0.0-0.2) 07/11/23 04:32 Baso # (Auto) 0.0 X10^3/uL (0.0-0.1) 07/11/23 04:32 Absolute Nucleated RBC 0.0 /100WBC 07/11/23 04:32 D-Dimer 0.57 ug/ml (0.0-0.57) 07/09/23 05:14 Sodium 141 mmol/L (136-145) 07/11/23 04:32 Corrected Sodium 147 mmol/L (136-145) H 07/11/23 04:32 Potassium 3.8 mmol/L (3.5-5.1) 07/11/23 04:32 Chloride 100 mmol/L (98-107) 07/11/23 04:32 Carbon Dioxide 32.9 mmol/L (21-32) H 07/11/23 04:32 BUN 33 mg/dL (7-18) H 07/11/23 04:32 Creatinine 1.70 mg/dL (0.55-1.02) H 07/11/23 04:32 Est GFR (MDRD) Af Amer 38 (>60) L 07/11/23 04:32 Est GFR (MDRD) Non-Af 31 (>60) L 07/11/23 04:32 Glucose 334 mg/dL (65-99) H 07/11/23 04:32 POC Glucose (mg/dL) 264 mg/dL (65-99) H 07/10/23 16:56 Calcium 8.7 mg/dL (8.5-10.1) 07/11/23 04:32 Corrected Calcium 9.8 mg/dL (8.5-10.1) 07/11/23 04:32 Magnesium 1.8 mg/dL (2.0-2.9) L 07/11/23 04:32 Total Bilirubin 1.20 mg/dL (0.2-1.0) H 07/11/23 04:32 AST 20 Units/L (15-37) 07/11/23 04:32 ALT 24 Units/L (12-78) 07/11/23 04:32 Alkaline Phosphatase 56 Units/L (46-116) 07/11/23 04:32 Troponin I High Sens 31.6 ng/L (4.0-60.0) 07/10/23 12:25 B-Natriuretic Peptide 553 pg/mL (0-79) H 07/10/23 04:28 Total Protein 6.5 g/dL (6.4-8.2) 07/11/23 04:32 Albumin 2.6 g/dL (3.4-5.0) L 07/11/23 04:32 Globulin 3.9 g/dL (2.5-4.5) 07/11/23 04:32 Albumin/Globulin Ratio 0.7 Ratio (1.1-2.1) L 07/11/23 04:32 TSH 3rd Generation 4.944 uIU/mL (0.358-3.74) H 07/09/23 05:14 Specimen Type Catherized urine 07/09/23 21:45 Urine Color Pale yellow (YELLOW) 07/09/23 21:45 Urine Appearance Clear (CLEAR) 07/09/23 21:45 Urine pH 5.0 (5.0 - 8.0) 07/09/23 21:45 Ur Specific [place] 1.025 (1.000-1.030) 07/09/23 21:45 Urine Protein Negative (NEGATIVE) 07/09/23 21:45 Urine Glucose (UA) 4+ (NEGATIVE) 07/09/23 21:45 Urine Ketones Negative (NEGATIVE) 07/09/23 21:45 Urine Blood 1+ (NEGATIVE) 07/09/23 21:45 Urine Nitrite Negative (NEGATIVE) 07/09/23 21:45 Urine Bilirubin Negative (NEGATIVE) 07/09/23 21:45 Urine Urobilinogen Normal (NORMAL) 07/09/23 21:45 Ur Leukocyte Esterase Negative (NEGATIVE) 07/09/23 21:45 Urine RBC 3-5 /HPF (0-3) A 07/09/23 21:45 Urine WBC 0-2 /HPF (0-5) 07/09/23 21:45 Ur Squamous Epith Cells Few /HPF (NEGATIVE) 07/09/23 21:45 Amorphous Sediment Trace /HPF (NEGATIVE) 07/09/23 21:45 Urine Bacteria Trace /HPF (NEGATIVE) 07/09/23 21:45 Ur Culture Indicated? No/not indicated 07/09/23 21:45 SARS-CoV-2 (PCR) Negative (NEGATIVE) 07/08/23 13:43 Influenza Type A (PCR) Negative (NEGATIVE) 07/08/23 13:43 Influenza Type B (PCR) Negative (NEGATIVE) 07/08/23 13:43 RSV (PCR) Negative (NEGATIVE) 07/08/23 13:43 Assessment and Plan 1: Atrial fibrillation with RVR - still in afib, but rate controlled at present. Off Cardizem drip at the present time. On PO beta jennifer. Cardiology notified of cessation of cardizem drip. Planning on MARIZA. Problem Patient Problems: Patient Problems (Updated 07/09/23 @ 14:11 by JUNIOR PIERRE) A-fib (Acute) I48.91
[2023-07-11] MEDS: MAG-OX TAB PO SCH (10:43)
[2023-07-12] MEDS: XOPENEX 1.25 MG/3 ML NEBULE NEB ONE (04:50)
[2023-07-12 05:27] LABS: BASOPHILS # (AUTO) 0.1 X10^3/uL (0.0-0.1); BASOPHILS % (AUTO) 0.3 % (0.2-1.0); EOSINOPHILS # (AUTO) 0.1 x10^3/uL (0.0-0.2); EOSINOPHILS % (AUTO) 0.6 % (0.9-2.9); HEMOGLOBIN 15.1 g/dL (12.0-16.0); LYMPHOCYTES # (AUTO) 1.9 X10^3/uL (1.3-2.9); MEAN CORPUSCULAR HEMOGLOBIN 29.3 pg (27.0-34.0); MEAN CORPUSCULAR HGB CONC 33.6 g/dL (33.0-35.0); MEAN CORPUSCULAR VOLUME 87.1 fL (80.0-100.0); MEAN PLATELET VOLUME 8.9 fL (7.4-11.0); MONOCYTES # (AUTO) 1.1 x10^3/uL (0.3-0.8); MONOCYTES % (AUTO) 6.6 % (0.0-13.0); NEUTROPHILS % (AUTO) 81.5 % (42.0-75.0); PLATELET COUNT 209 X10^3/uL (150.0-450.0); RED BLOOD COUNT 5.17 X10^6/uL (3.5-5.4); RED CELL DISTRIBUTION WIDTH 14.1 % (11.6-16.5)
[2023-07-12 05:36] LABS: WHITE BLOOD COUNT 17.2 X10^3/uL (3.6-10.0)
[2023-07-12 05:41] LABS: ALBUMIN 3.1 g/dL (3.4-5.0); CALCIUM 8.9 mg/dL (8.5-10.1); CARBON DIOXIDE 28.2 mmol/L (21-32); COR CA(FOR HYPOALB) 9.6 mg/dL (8.5-10.1); CREATININE 1.4 mg/dL (0.55-1.02); POTASSIUM 3.6 mmol/L (3.5-5.1); TOTAL PROTEIN 7.2 g/dL (6.4-8.2)
[2023-07-12] MEDS ORDERED: CONSULT PHARMACY - POTASSIUM & MAGNESIUM XX SCH (07:00)
[2023-07-12] MEDS ORDERED: XOPENEX 1.25 MG/3 ML NEBULE NEB ONE (08:15)
--- NOTE | 2023-07-12 08:27 | EKG ---
Test Reason : CHEST PAIN Blood Pressure : */* mmHG Vent. Rate : 112 BPM Atrial Rate : * BPM P-R Int : * ms QRS Dur : 88 ms QT Int : 386 ms P-R-T Axes : * 16 181 degrees QTc Int : 526 ms Atrial fibrillation with rapid ventricular response Nonspecific T wave abnormality Abnormal ECG When compared with ECG of 11-JUL-2023 07:02, Vent. rate has increased BY 47 BPM Inverted T waves have replaced nonspecific T wave abnormality in Lateral leads Confirmed by Sudeep Harmon MD ([id number]) on 07/13/2023 7:32:58 AM Referred By: Confirmed By: Sudeep Harmon MD
[2023-07-12] MEDS: K-DUR TAB 20 MEQ PO SCH (08:30)
[2023-07-12] MEDS: ROCEPHIN VIAL 1 GRAM IV SCH (08:31)
[2023-07-12] MEDS: XOPENEX 1.25 MG/3 ML NEBULE NEB PRN (08:31)
[2023-07-12] MEDS ORDERED: NS 100 ML IV 100 ML ONE ×2 (08:34→09:47)
[2023-07-12] MEDS: MORPHINE SULFATE INJ 2 MG INJ IVP ONE (08:40)
--- NOTE | 2023-07-12 09:21 | DR.PROGNOT ---
HOSPITAL PROGRESS NOTE Progress Note for Day of: Progress Note Date: 07/12/23 History of Present Illness History of Present Illness: 73 y/o female with persistent atrial fibrillation. Had a rough night, had increased dyspnea last pm, short bout of chest pain. Was given additional dose of IV lasix, 2 mgs, morphine. Doing better at the present time. Past Medical Family Social History Allergies: Allergies codeine Allergy (Verified 05/27/19 13:02) Vital Signs Vital Signs: Vital Signs Temperature 98.3 F Pulse Rate 110 Pulse Rate 97 Pulse Rate 77 Pulse Rate 76 Pulse Rate 73 Pulse Rate 103 Pulse Rate 72 Pulse Rate 122 Pulse Rate 85 Respiratory Rate 24 Respiratory Rate 24 Respiratory Rate 39 Respiratory Rate 38 Respiratory Rate 39 Respiratory Rate 37 Respiratory Rate 39 Respiratory Rate 38 Blood Pressure 122/86 Blood Pressure 143/77 Blood Pressure 146/105 Blood Pressure 135/84 Blood Pressure 131/76 Blood Pressure 123/98 Blood Pressure 126/78 O2 Sat by Pulse Oximetry 98 O2 Sat by Pulse Oximetry 92 O2 Sat by Pulse Oximetry 94 O2 Sat by Pulse Oximetry 94 O2 Sat by Pulse Oximetry 98 O2 Sat by Pulse Oximetry 92 O2 Sat by Pulse Oximetry 95 O2 Sat by Pulse Oximetry 92 O2 Sat by Pulse Oximetry 94 Physical Exam Oriented: Normal Eyes: Normal Ear: Normal Nose: Normal Throat: Normal Respiratory: Normal Cardiovascular: Irregular (rate controlled at present. ) : Normal GI:Auscultation: Normal GI:Palpation: Normal GI: Tenderness: Normal Skin: Normal Musculoskeletal: Normal (no edema) Psychiatric: Normal Mood Description: Calm and Appropriate Affect: Normal Speech Pattern: Clear and Appropriate Laboratory and Diagnostics 07/12/23 04:30 07/12/23 04:30 Labs: Laboratory WBC 17.2 X10^3/uL (3.6-10.0) H D 07/12/23 04:30 RBC 5.17 X10^6/uL (3.5-5.4) 07/12/23 04:30 Hgb 15.1 g/dL (12.0-16.0) 07/12/23 04:30 Hct 45.0 % (36.0-47.0) 07/12/23 04:30 MCV 87.1 fL (80.0-100.0) 07/12/23 04:30 MCH 29.3 pg (27.0-34.0) 07/12/23 04:30 MCHC 33.6 g/dL (33.0-35.0) 07/12/23 04:30 RDW 14.1 % (11.6-16.5) 07/12/23 04:30 Plt Count 209 X10^3/uL (150.0-450.0) 07/12/23 04:30 MPV 8.9 fL (7.4-11.0) 07/12/23 04:30 Neut % (Auto) 81.5 % (42.0-75.0) H 07/12/23 04:30 Lymph % (Auto) 11.0 % (21.0-51.0) L 07/12/23 04:30 [place] % (Auto) 6.6 % (0.0-13.0) 07/12/23 04:30 Eos % (Auto) 0.6 % (0.9-2.9) L 07/12/23 04:30 Baso % (Auto) 0.3 % (0.2-1.0) 07/12/23 04:30 Neut # (Auto) 14.0 x10^3/uL (2.2-4.8) H 07/12/23 04:30 Lymph # (Auto) 1.9 X10^3/uL (1.3-2.9) 07/12/23 04:30 [place] # (Auto) 1.1 x10^3/uL (0.3-0.8) H 07/12/23 04:30 Eos # (Auto) 0.1 x10^3/uL (0.0-0.2) 07/12/23 04:30 Baso # (Auto) 0.1 X10^3/uL (0.0-0.1) 07/12/23 04:30 Absolute Nucleated RBC 0.0 /100WBC 07/12/23 04:30 D-Dimer 0.57 ug/ml (0.0-0.57) 07/09/23 05:14 Sodium 145 mmol/L (136-145) 07/12/23 04:30 Corrected Sodium 147 mmol/L (136-145) H 07/12/23 04:30 Potassium 3.6 mmol/L (3.5-5.1) 07/12/23 04:30 Chloride 103 mmol/L (98-107) 07/12/23 04:30 Carbon Dioxide 28.2 mmol/L (21-32) 07/12/23 04:30 BUN 44 mg/dL (7-18) H 07/12/23 04:30 Creatinine 1.40 mg/dL (0.55-1.02) H 07/12/23 04:30 Est GFR (MDRD) Af Amer 48 (>60) L 07/12/23 04:30 Est GFR (MDRD) Non-Af 39 (>60) L 07/12/23 04:30 Glucose 177 mg/dL (65-99) H 07/12/23 04:30 POC Glucose (mg/dL) 368 mg/dL (65-99) H 07/11/23 21:21 Calcium 8.9 mg/dL (8.5-10.1) 07/12/23 04:30 Corrected Calcium 9.6 mg/dL (8.5-10.1) 07/12/23 04:30 Magnesium 1.8 mg/dL (2.0-2.9) L 07/11/23 04:32 Total Bilirubin 1.10 mg/dL (0.2-1.0) H 07/12/23 04:30 AST 27 Units/L (15-37) 07/12/23 04:30 ALT 27 Units/L (12-78) 07/12/23 04:30 Alkaline Phosphatase 77 Units/L (46-116) 07/12/23 04:30 Troponin I High Sens 15.8 ng/L (4.0-60.0) 07/12/23 08:38 B-Natriuretic Peptide 553 pg/mL (0-79) H 07/10/23 04:28 Total Protein 7.2 g/dL (6.4-8.2) 07/12/23 04:30 Albumin 3.1 g/dL (3.4-5.0) L 07/12/23 04:30 Globulin 4.1 g/dL (2.5-4.5) 07/12/23 04:30 Albumin/Globulin Ratio 0.8 Ratio (1.1-2.1) L 07/12/23 04:30 TSH 3rd Generation 4.944 uIU/mL (0.358-3.74) H 07/09/23 05:14 Specimen Type Catherized urine 07/09/23 21:45 Urine Color Pale yellow (YELLOW) 07/09/23 21:45 Urine Appearance Clear (CLEAR) 07/09/23 21:45 Urine pH 5.0 (5.0 - 8.0) 07/09/23 21:45 Ur Specific [place] 1.025 (1.000-1.030) 07/09/23 21:45 Urine Protein Negative (NEGATIVE) 07/09/23 21:45 Urine Glucose (UA) 4+ (NEGATIVE) 07/09/23 21:45 Urine Ketones Negative (NEGATIVE) 07/09/23 21:45 Urine Blood 1+ (NEGATIVE) 07/09/23 21:45 Urine Nitrite Negative (NEGATIVE) 07/09/23 21:45 Urine Bilirubin Negative (NEGATIVE) 07/09/23 21:45 Urine Urobilinogen Normal (NORMAL) 07/09/23 21:45 Ur Leukocyte Esterase Negative (NEGATIVE) 07/09/23 21:45 Urine RBC 3-5 /HPF (0-3) A 07/09/23 21:45 Urine WBC 0-2 /HPF (0-5) 07/09/23 21:45 Ur Squamous Epith Cells Few /HPF (NEGATIVE) 07/09/23 21:45 Amorphous Sediment Trace /HPF (NEGATIVE) 07/09/23 21:45 Urine Bacteria Trace /HPF (NEGATIVE) 07/09/23 21:45 Ur Culture Indicated? No/not indicated 07/09/23 21:45 SARS-CoV-2 (PCR) Negative (NEGATIVE) 07/08/23 13:43 Influenza Type A (PCR) Negative (NEGATIVE) 07/08/23 13:43 Influenza Type B (PCR) Negative (NEGATIVE) 07/08/23 13:43 RSV (PCR) Negative (NEGATIVE) 07/08/23 13:43 Assessment and Plan 1: Atrial fibrillation with RVR - still in afib, but rate better controlled at present. Back on Cardizem drip at the present time. On PO beta jennifer. For possible cardioversion tomorrow. Problem Patient Problems: Patient Problems (Updated 07/09/23 @ 14:11 by JUNIOR PIERRE) A-fib (Acute) I48.91
[2023-07-12] MEDS: LASIX IVP SCH (09:40)
[2023-07-12 09:41] LABS: BILIRUBIN,URINE NEGATIVE (NEGATIVE); BLOOD/HEMOGLOBIN,URINE 5+ (NEGATIVE); GLUCOSE, URINE NEGATIVE (NEGATIVE); KETONES,URINE NEGATIVE (NEGATIVE); LEUKOCYTE ESTERASE ,URINE 1+ (NEGATIVE); NITRITES,URINE NEGATIVE (NEGATIVE); PROTEIN,URINE 2+ (NEGATIVE); UROBILINOGEN,URINE 2+ (NORMAL)
[2023-07-12] MEDS: ROCEPHIN VIAL 1 GRAM 1 G in NS 100 ML IV 100 ML IV SCH (09:41)
[2023-07-12 09:49] LABS: APPEARANCE,URINE CLEAR (CLEAR); COLOR,URINE YELLOW (YELLOW)
[2023-07-12 09:50] LABS: BACTERIA,URINE TRACE /HPF (NEGATIVE); HYALINE CASTS, URINE RARE /LPF (NEGATIVE); SQUAMOUS EPITHELIAL CELL,UR RARE /HPF (NEGATIVE)
--- NOTE | 2023-07-12 14:41 | RAD ---
EXAM: Chest one view HISTORY: Shortness of breath. Atrial fibrillation with rapid ventricular rate. COMPARISON: Chest one view from 07/10/2023. FINDINGS: SUPPORT DEVICES: None. HEART/MEDIASTINUM: Stable. LUNGS: Increased confluence of right basilar opacities with similar left basilar opacities and improv ement of bilateral perihilar opacities. No significant pleural effusion. No pneumothorax. ADDITIONAL FINDINGS: None. IMPRESSION: Evolving probable bilateral edema/atelectasis with unchanged cardiomegaly. THIS IS AN ELECTRONICALLY VERIFIED FINAL REPORT 07/12/2023 2:38 PM - Electronically signed by Chet Ayers MD
[2023-07-12] MEDS: MORPHINE SULFATE INJ 2 MG INJ IVP PRN (17:33)
[2023-07-13 05:44] LABS: ALBUMIN 2.6 g/dL (3.4-5.0); CALCIUM 8.5 mg/dL (8.5-10.1); COR CA(FOR HYPOALB) 9.6 mg/dL (8.5-10.1); CREATININE 1.28 mg/dL (0.55-1.02); MAGNESIUM 1.8 mg/dL (2.0-2.9); TOTAL PROTEIN 6.3 g/dL (6.4-8.2)
[2023-07-13 05:47] LABS: BASOPHILS % (AUTO) 0.5 % (0.2-1.0); EOSINOPHILS # (AUTO) 0.1 x10^3/uL (0.0-0.2); EOSINOPHILS % (AUTO) 2.2 % (0.9-2.9); HEMATOCRIT 40.4 % (36.0-47.0); HEMOGLOBIN 13.5 g/dL (12.0-16.0); LYMPHOCYTES # (AUTO) 1.3 X10^3/uL (1.3-2.9); LYMPHOCYTES % (AUTO) 20.7 % (21.0-51.0); MEAN CORPUSCULAR HEMOGLOBIN 29.2 pg (27.0-34.0); MEAN CORPUSCULAR HGB CONC 33.5 g/dL (33.0-35.0); MEAN CORPUSCULAR VOLUME 87.2 fL (80.0-100.0); MEAN PLATELET VOLUME 8.7 fL (7.4-11.0); MONOCYTES # (AUTO) 0.6 x10^3/uL (0.3-0.8); MONOCYTES % (AUTO) 9.3 % (0.0-13.0); NEUTROPHILS # (AUTO) 4.3 x10^3/uL (2.2-4.8); NEUTROPHILS % (AUTO) 67.3 % (42.0-75.0); PLATELET COUNT 113 X10^3/uL (150.0-450.0); RED BLOOD COUNT 4.63 X10^6/uL (3.5-5.4); RED CELL DISTRIBUTION WIDTH 13.8 % (11.6-16.5)
[2023-07-13 05:52] LABS: WHITE BLOOD COUNT 6.4 X10^3/uL (3.6-10.0)
--- NOTE | 2023-07-13 08:41 | NOTE.SOAP ---
Soap Note Note for Day of Date of Exam: 07/13/23 Subjective Data Subjective Data: again went into chf yesterday- doing better today- will try to diuresis more today than gurjit/cv as well as ischemic eval Objective Data Objective Data: 130 p 120 on iv cardizem again,, lungs few crackles irreg irreg no edema labs: k 4.0. cr 1.2 wbc down - troponins all negative Assessment Assessment: afib -difficult to rate control/chf/mitral regurgitation- worried about ischemia Plan Plan: change metoprolol to sotalol- cont diuresis- gurjit/cv in am- get good look at MR- then lexiscan after
--- NOTE | 2023-07-13 09:54 | PCM.PROG ---
Progress Note Progress Note for Day of Date of Exam: 07/13/23 Subjective Subjective: Patient seen at bedside, no acute events overnight. She is currently admitted for atrial fibrillation with RVR. Patient has not been able to be rate controlled. Her HR has been in the 115-120s. Cardiology following. She is currently on Diltiazem drip and PO Cardizem. Cardiology started sotalol today. She is also being diuresed with lasix. She is scheduled for MARIZA and stress test tomorrow morning. Labs/imaging reviewed -BUN/Cr 39/1.28 Mag 1.8 - UA: suggestive for UTI -CXR: b/l edema/atelectasis - ECHO reviewed EF 60-65% Plan: continue ICU care for closer monitoring. Patient remains on Cardizem drip as per protocol. Follow cardio recommendations. Continue lasix, monitor UOP. Replace electrolytes as per protocol. Continue IV Rocephin, follow urine Cx. Continue home medications. Monitor AM labs/imaging. Time spent for clinical assessment, reviews labs/imaging, physical exam, decision making and documentation greater than 45 mins. Past Medical Family Social History Allergies: Allergies codeine Allergy (Verified 05/27/19 13:02) Vital Signs and I&O's Vital Signs: Vital Signs Pulse Rate 116 Pulse Rate 115 Pulse Rate 119 Pulse Rate 115 Pulse Rate 116 Pulse Rate 118 Pulse Rate 123 Respiratory Rate 32 Respiratory Rate 15 Respiratory Rate 19 Respiratory Rate 32 Respiratory Rate 31 Respiratory Rate 22 Blood Pressure 106/63 Blood Pressure 128/74 Blood Pressure 110/77 Blood Pressure 97/78 Blood Pressure 125/83 O2 Sat by Pulse Oximetry 95 O2 Sat by Pulse Oximetry 98 O2 Sat by Pulse Oximetry 100 O2 Sat by Pulse Oximetry 100 O2 Sat by Pulse Oximetry 100 O2 Sat by Pulse Oximetry 100 O2 Sat by Pulse Oximetry 99 Intake and Output: Intake & Output 07/10/23 07/11/23 07/12/23 07/13/23 22:59 22:59 23:59 23:59 Intake Total 1047 / 1047 Output Total 200 / 200 Balance 847 / 847 Physical Exam Oriented: Normal Eyes: Normal Ear: Normal Nose: Normal Throat: Normal Respiratory: Normal Cardiovascular: Tachycardia and Irregular Auscultation: Bowel Sounds: Normal Tenderness: Normal Skin: Normal Musculoskeletal: Normal (no edema) Psychiatric: Normal Mood Description: Calm and Appropriate Affect: Normal Speech Pattern: Clear and Appropriate Laboratory and Diagnostics 07/13/23 04:39 07/13/23 04:39 Labs: 07/12/23 09:30 Urine,Catheterized Urine Culture - Preliminary Laboratory WBC 6.4 X10^3/uL (3.6-10.0) D 07/13/23 04:39 RBC 4.63 X10^6/uL (3.5-5.4) 07/13/23 04:39 Hgb 13.5 g/dL (12.0-16.0) 07/13/23 04:39 Hct 40.4 % (36.0-47.0) 07/13/23 04:39 MCV 87.2 fL (80.0-100.0) 07/13/23 04:39 MCH 29.2 pg (27.0-34.0) 07/13/23 04:39 MCHC 33.5 g/dL (33.0-35.0) 07/13/23 04:39 RDW 13.8 % (11.6-16.5) 07/13/23 04:39 Plt Count 113 X10^3/uL (150.0-450.0) L 07/13/23 04:39 MPV 8.7 fL (7.4-11.0) 07/13/23 04:39 Neut % (Auto) 67.3 % (42.0-75.0) 07/13/23 04:39 Lymph % (Auto) 20.7 % (21.0-51.0) L 07/13/23 04:39 [place] % (Auto) 9.3 % (0.0-13.0) 07/13/23 04:39 Eos % (Auto) 2.2 % (0.9-2.9) 07/13/23 04:39 Baso % (Auto) 0.5 % (0.2-1.0) 07/13/23 04:39 Neut # (Auto) 4.3 x10^3/uL (2.2-4.8) 07/13/23 04:39 Lymph # (Auto) 1.3 X10^3/uL (1.3-2.9) 07/13/23 04:39 [place] # (Auto) 0.6 x10^3/uL (0.3-0.8) 07/13/23 04:39 Eos # (Auto) 0.1 x10^3/uL (0.0-0.2) 07/13/23 04:39 Baso # (Auto) 0.0 X10^3/uL (0.0-0.1) 07/13/23 04:39 Absolute Nucleated RBC 0.0 /100WBC 07/13/23 04:39 D-Dimer 0.57 ug/ml (0.0-0.57) 07/09/23 05:14 Sodium 143 mmol/L (136-145) 07/13/23 04:39 Corrected Sodium 145 mmol/L (136-145) 07/13/23 04:39 Potassium 4.0 mmol/L (3.5-5.1) 07/13/23 04:39 Chloride 102 mmol/L (98-107) 07/13/23 04:39 Carbon Dioxide 32.0 mmol/L (21-32) 07/13/23 04:39 BUN 39 mg/dL (7-18) H 07/13/23 04:39 Creatinine 1.28 mg/dL (0.55-1.02) H 07/13/23 04:39 Est GFR (MDRD) Af Amer 53 (>60) L 07/13/23 04:39 Est GFR (MDRD) Non-Af 44 (>60) L 07/13/23 04:39 Glucose 185 mg/dL (65-99) H 07/13/23 04:39 POC Glucose (mg/dL) 368 mg/dL (65-99) H 07/11/23 21:21 Calcium 8.5 mg/dL (8.5-10.1) 07/13/23 04:39 Corrected Calcium 9.6 mg/dL (8.5-10.1) 07/13/23 04:39 Magnesium 1.8 mg/dL (2.0-2.9) L 07/13/23 04:39 Total Bilirubin 1.30 mg/dL (0.2-1.0) H 07/13/23 04:39 AST 20 Units/L (15-37) 07/13/23 04:39 ALT 24 Units/L (12-78) 07/13/23 04:39 Alkaline Phosphatase 53 Units/L (46-116) 07/13/23 04:39 Troponin I High Sens 12.5 ng/L (4.0-60.0) 07/12/23 20:30 B-Natriuretic Peptide 553 pg/mL (0-79) H 07/10/23 04:28 Total Protein 6.3 g/dL (6.4-8.2) L 07/13/23 04:39 Albumin 2.6 g/dL (3.4-5.0) L 07/13/23 04:39 Globulin 3.7 g/dL (2.5-4.5) 07/13/23 04:39 Albumin/Globulin Ratio 0.7 Ratio (1.1-2.1) L 07/13/23 04:39 TSH 3rd Generation 4.944 uIU/mL (0.358-3.74) H 07/09/23 05:14 Specimen Type Catherized urine 07/12/23 09:32 Urine Color Yellow (YELLOW) 07/12/23 09:32 Urine Appearance Clear (CLEAR) 07/12/23 09:32 Urine pH 6.0 (5.0 - 8.0) 07/12/23 09:32 Ur Specific [place] 1.025 (1.000-1.030) 07/12/23 09:32 Urine Protein 2+ (NEGATIVE) 07/12/23 09:32 Urine Glucose (UA) Negative (NEGATIVE) 07/12/23 09:32 Urine Ketones Negative (NEGATIVE) 07/12/23 09:32 Urine Blood 5+ (NEGATIVE) 07/12/23 09:32 Urine Nitrite Negative (NEGATIVE) 07/12/23 09:32 Urine Bilirubin Negative (NEGATIVE) 07/12/23 09:32 Urine Urobilinogen 2+ (NORMAL) 07/12/23 09:32 Ur Leukocyte Esterase 1+ (NEGATIVE) 07/12/23 09:32 Urine RBC 10-20 /HPF (0-3) A 07/12/23 09:32 Urine WBC 10-20 /HPF (0-5) A 07/12/23 09:32 Ur Squamous Epith Cells Rare /HPF (NEGATIVE) 07/12/23 09:32 Amorphous Sediment Trace /HPF (NEGATIVE) 07/09/23 21:45 Urine Bacteria Trace /HPF (NEGATIVE) 07/12/23 09:32 Hyaline Casts Rare /LPF (NEGATIVE) 07/12/23 09:32 Urine Mucus Few /HPF (NEGATIVE) 07/12/23 09:32 Ur Culture Indicated? Yes/culture set up 07/12/23 09:32 SARS-CoV-2 (PCR) Negative (NEGATIVE) 07/08/23 13:43 Influenza Type A (PCR) Negative (NEGATIVE) 07/08/23 13:43 Influenza Type B (PCR) Negative (NEGATIVE) 07/08/23 13:43 RSV (PCR) Negative (NEGATIVE) 07/08/23 13:43 Plan (1) Atrial fibrillation with rapid ventricular response: Status: Acute (2) CHF exacerbation: Status: Acute Qualifiers: Heart failure type: unspecified Qualified Code(s): I50.9 - Heart failure, unspecified (3) Hypokalemia: Status: Acute Plan: Replete per protocol (4) UTI (urinary tract infection): Status: Acute Qualifiers: Hematuria presence: without hematuria Urinary tract infection type: acute cystitis Qualified Code(s): N30.00 - Acute cystitis without hematuria (5) Hyperlipidemia: Status: Chronic Qualifiers: Hyperlipidemia type: mixed hyperlipidemia Qualified Code(s): E78.2 - Mixed hyperlipidemia (6) Diabetes mellitus, type 2: Status: Chronic Qualifiers: Diabetes mellitus complication status: without complication Diabetes mellitus detention insulin use: without terminal clerk use Qualified Code(s): E11.9 - Type 2 diabetes mellitus without complications (7) Hypertension: Status: Acute Qualifiers: Hypertension type: primary hypertension Qualified Code(s): I10 - Essential (primary) hypertension (8) Hypomagnesemia: Status: Acute
[2023-07-13] MEDS: BETAPACE AF PO SCH (10:33)
[2023-07-13] MEDS: NS + KCL 20 MEQ/L 1,000 ML IV SCH (10:35)
[2023-07-13] MEDS: NS + KCL 20 MEQ/L 1,000 ML with MAGNESIUM SULFATE 50% INJ VIAL 1 G IV SCH (10:49)
[2023-07-14 05:02] LABS: BASOPHILS % (AUTO) 0.6 % (0.2-1.0); EOSINOPHILS # (AUTO) 0.4 x10^3/uL (0.0-0.2); EOSINOPHILS % (AUTO) 6.1 % (0.9-2.9); HEMATOCRIT 44.5 % (36.0-47.0); LYMPHOCYTES # (AUTO) 0.9 X10^3/uL (1.3-2.9); MEAN CORPUSCULAR HEMOGLOBIN 29.1 pg (27.0-34.0); MEAN CORPUSCULAR HGB CONC 33.8 g/dL (33.0-35.0); MEAN CORPUSCULAR VOLUME 86.1 fL (80.0-100.0); MEAN PLATELET VOLUME 8.5 fL (7.4-11.0); MONOCYTES # (AUTO) 0.6 x10^3/uL (0.3-0.8); MONOCYTES % (AUTO) 8.9 % (0.0-13.0); NEUTROPHILS # (AUTO) 5.1 x10^3/uL (2.2-4.8); NEUTROPHILS % (AUTO) 72.4 % (42.0-75.0); PLATELET COUNT 168 X10^3/uL (150.0-450.0); RED BLOOD COUNT 5.16 X10^6/uL (3.5-5.4); RED CELL DISTRIBUTION WIDTH 13.4 % (11.6-16.5); WHITE BLOOD COUNT 7.1 X10^3/uL (3.6-10.0)
[2023-07-14 05:10] LABS: ALBUMIN 2.6 g/dL (3.4-5.0); CALCIUM 8.9 mg/dL (8.5-10.1); CARBON DIOXIDE 32.9 mmol/L (21-32); CREATININE 1.22 mg/dL (0.55-1.02); MAGNESIUM 1.6 mg/dL (2.0-2.9); POTASSIUM 3.8 mmol/L (3.5-5.1); TOTAL PROTEIN 6.6 g/dL (6.4-8.2)
[2023-07-14] MEDS ORDERED: CONSULT PHARMACY - POTASSIUM & MAGNESIUM XX SCH (06:00)
--- NOTE | 2023-07-14 06:28 | EKG ---
Test Reason : A-fib Blood Pressure : */* mmHG Vent. Rate : 78 BPM Atrial Rate : * BPM P-R Int : * ms QRS Dur : 94 ms QT Int : 472 ms P-R-T Axes : * 4 18 degrees QTc Int : 538 ms Atrial fibrillation Minimal voltage criteria for LVH, may be normal variant ( Dimitri product ) T wave abnormality, consider anterolateral ischemia Abnormal ECG When compared with ECG of 12-JUL-2023 08:10, No significant change was found Confirmed by Sudeep Harmon MD ([id number]) on 07/14/2023 9:31:10 AM Referred By: Confirmed By: Sudeep Harmon MD
[2023-07-14] MEDS: DIPRIVAN VIAL 20 ML ONE (07:50)
[2023-07-14] MEDS: NS 1,000 ML IV 1,000 ML ONE (08:02)
--- NOTE | 2023-07-14 08:35 | EKG ---
Test Reason : post cardioversion Blood Pressure : */* mmHG Vent. Rate : 57 BPM Atrial Rate : 57 BPM P-R Int : 184 ms QRS Dur : 98 ms QT Int : 558 ms P-R-T Axes : 7 12 -7 degrees QTc Int : 543 ms Sinus bradycardia Minimal voltage criteria for LVH, may be normal variant ( Anna product ) T wave abnormality, consider anterolateral ischemia Abnormal ECG When compared with ECG of 14-JUL-2023 06:07, (Unconfirmed) Sinus rhythm has replaced Atrial fibrillation Confirmed by Sudeep Harmon MD ([id number]) on 07/14/2023 9:30:59 AM Referred By: Confirmed By: Sudeep Harmon MD
[2023-07-14] MEDS ORDERED: K-DUR TAB 20 MEQ PO SCH (09:00)
[2023-07-14] MEDS ORDERED: MAG-OX TAB PO SCH (09:00)
--- NOTE | 2023-07-14 09:32 | PCM.PROG ---
Progress Note Progress Note for Day of Date of Exam: 07/14/23 Subjective Subjective: Patient seen at bedside, no acute events overnight. She went for MARIZA and cardioversion this morning. She is currently in NSR, HR 55-60. She states she feels better. She is scheduled for stress test this afternoon. She is currently NPO. Labs/imaging reviewed -BUN/Cr 31/.22 Mag 1.6 - ECHO reviewed EF 60-65% - Urine Cx: no growth Plan: continue ICU care for closer monitoring. Follow cardio recommendations. Follow up stress test results. Patient is NPO for the procedure. Continue one more dose of IV Rocephin. Replace mag as per protocol. Continue current treatment. Monitor AM labs/imaging. Time spent for clinical assessment, reviews labs/imaging, physical exam, decision making and documentation greater than 45 mins. Past Medical Family Social History Allergies: Allergies codeine Allergy (Verified 05/27/19 13:02) Vital Signs and I&O's Vital Signs: Vital Signs Temperature 98.0 F Temperature 98.1 F Pulse Rate 57 Pulse Rate 57 Pulse Rate 59 Pulse Rate 91 Pulse Rate 95 Pulse Rate 96 Pulse Rate 79 Pulse Rate 81 Pulse Rate 93 Respiratory Rate 28 Respiratory Rate 34 Respiratory Rate 20 Respiratory Rate 24 Respiratory Rate 19 Respiratory Rate 24 Respiratory Rate 26 Blood Pressure 153/67 Blood Pressure 145/78 Blood Pressure 127/90 Blood Pressure 140/79 Blood Pressure 114/74 Blood Pressure 146/66 Blood Pressure 109/87 O2 Sat by Pulse Oximetry 100 O2 Sat by Pulse Oximetry 99 O2 Sat by Pulse Oximetry 99 O2 Sat by Pulse Oximetry 100 O2 Sat by Pulse Oximetry 100 O2 Sat by Pulse Oximetry 100 O2 Sat by Pulse Oximetry 97 O2 Sat by Pulse Oximetry 100 O2 Sat by Pulse Oximetry 99 Intake and Output: Intake & Output 07/11/23 07/12/23 07/13/23 07/14/23 22:59 23:59 23:59 23:59 Intake Total 3129 / 3129 297 / 297 Output Total 3800 / 3800 350 / 350 Balance -671 / -671 -53 / -53 Physical Exam Oriented: Normal Eyes: Normal Ear: Normal Nose: Normal Throat: Normal Respiratory: Normal Cardiovascular: Normal Auscultation: Bowel Sounds: Normal Tenderness: Normal Skin: Normal Musculoskeletal: Normal (no edema) Psychiatric: Normal Mood Description: Calm and Appropriate Affect: Normal Speech Pattern: Clear and Appropriate Laboratory and Diagnostics 07/14/23 04:38 07/14/23 04:38 Labs: 07/12/23 09:30 Urine,Catheterized Urine Culture - Final Laboratory WBC 7.1 X10^3/uL (3.6-10.0) 07/14/23 04:38 RBC 5.16 X10^6/uL (3.5-5.4) 07/14/23 04:38 Hgb 15.0 g/dL (12.0-16.0) 07/14/23 04:38 Hct 44.5 % (36.0-47.0) 07/14/23 04:38 MCV 86.1 fL (80.0-100.0) 07/14/23 04:38 MCH 29.1 pg (27.0-34.0) 07/14/23 04:38 MCHC 33.8 g/dL (33.0-35.0) 07/14/23 04:38 RDW 13.4 % (11.6-16.5) 07/14/23 04:38 Plt Count 168 X10^3/uL (150.0-450.0) 07/14/23 04:38 MPV 8.5 fL (7.4-11.0) 07/14/23 04:38 Neut % (Auto) 72.4 % (42.0-75.0) 07/14/23 04:38 Lymph % (Auto) 12.0 % (21.0-51.0) L 07/14/23 04:38 [place] % (Auto) 8.9 % (0.0-13.0) 07/14/23 04:38 Eos % (Auto) 6.1 % (0.9-2.9) H 07/14/23 04:38 Baso % (Auto) 0.6 % (0.2-1.0) 07/14/23 04:38 Neut # (Auto) 5.1 x10^3/uL (2.2-4.8) H 07/14/23 04:38 Lymph # (Auto) 0.9 X10^3/uL (1.3-2.9) L 07/14/23 04:38 [place] # (Auto) 0.6 x10^3/uL (0.3-0.8) 07/14/23 04:38 Eos # (Auto) 0.4 x10^3/uL (0.0-0.2) H 07/14/23 04:38 Baso # (Auto) 0.0 X10^3/uL (0.0-0.1) 07/14/23 04:38 Absolute Nucleated RBC 0.0 /100WBC 07/14/23 04:38 D-Dimer 0.57 ug/ml (0.0-0.57) 07/09/23 05:14 Sodium 145 mmol/L (136-145) 07/14/23 04:38 Corrected Sodium 147 mmol/L (136-145) H 07/14/23 04:38 Potassium 3.8 mmol/L (3.5-5.1) 07/14/23 04:38 Chloride 105 mmol/L (98-107) 07/14/23 04:38 Carbon Dioxide 32.9 mmol/L (21-32) H 07/14/23 04:38 BUN 31 mg/dL (7-18) H 07/14/23 04:38 Creatinine 1.22 mg/dL (0.55-1.02) H 07/14/23 04:38 Est GFR (MDRD) Af Amer 56 (>60) L 07/14/23 04:38 Est GFR (MDRD) Non-Af 46 (>60) L 07/14/23 04:38 Glucose 172 mg/dL (65-99) H 07/14/23 04:38 POC Glucose (mg/dL) 368 mg/dL (65-99) H 07/11/23 21:21 Calcium 8.9 mg/dL (8.5-10.1) 07/14/23 04:38 Corrected Calcium 10.0 mg/dL (8.5-10.1) 07/14/23 04:38 Magnesium 1.6 mg/dL (2.0-2.9) L 07/14/23 04:38 Total Bilirubin 0.90 mg/dL (0.2-1.0) 07/14/23 04:38 AST 30 Units/L (15-37) 07/14/23 04:38 ALT 31 Units/L (12-78) 07/14/23 04:38 Alkaline Phosphatase 73 Units/L (46-116) 07/14/23 04:38 Troponin I High Sens 12.5 ng/L (4.0-60.0) 07/12/23 20:30 B-Natriuretic Peptide 553 pg/mL (0-79) H 07/10/23 04:28 Total Protein 6.6 g/dL (6.4-8.2) 07/14/23 04:38 Albumin 2.6 g/dL (3.4-5.0) L 07/14/23 04:38 Globulin 4.0 g/dL (2.5-4.5) 07/14/23 04:38 Albumin/Globulin Ratio 0.7 Ratio (1.1-2.1) L 07/14/23 04:38 TSH 3rd Generation 4.944 uIU/mL (0.358-3.74) H 07/09/23 05:14 Specimen Type Catherized urine 07/12/23 09:32 Urine Color Yellow (YELLOW) 07/12/23 09:32 Urine Appearance Clear (CLEAR) 07/12/23 09:32 Urine pH 6.0 (5.0 - 8.0) 07/12/23 09:32 Ur Specific [place] 1.025 (1.000-1.030) 07/12/23 09:32 Urine Protein 2+ (NEGATIVE) 07/12/23 09:32 Urine Glucose (UA) Negative (NEGATIVE) 07/12/23 09:32 Urine Ketones Negative (NEGATIVE) 07/12/23 09:32 Urine Blood 5+ (NEGATIVE) 07/12/23 09:32 Urine Nitrite Negative (NEGATIVE) 07/12/23 09:32 Urine Bilirubin Negative (NEGATIVE) 07/12/23 09:32 Urine Urobilinogen 2+ (NORMAL) 07/12/23 09:32 Ur Leukocyte Esterase 1+ (NEGATIVE) 07/12/23 09:32 Urine RBC 10-20 /HPF (0-3) A 07/12/23 09:32 Urine WBC 10-20 /HPF (0-5) A 07/12/23 09:32 Ur Squamous Epith Cells Rare /HPF (NEGATIVE) 07/12/23 09:32 Amorphous Sediment Trace /HPF (NEGATIVE) 07/09/23 21:45 Urine Bacteria Trace /HPF (NEGATIVE) 07/12/23 09:32 Hyaline Casts Rare /LPF (NEGATIVE) 07/12/23 09:32 Urine Mucus Few /HPF (NEGATIVE) 07/12/23 09:32 Ur Culture Indicated? Yes/culture set up 07/12/23 09:32 SARS-CoV-2 (PCR) Negative (NEGATIVE) 07/08/23 13:43 Influenza Type A (PCR) Negative (NEGATIVE) 07/08/23 13:43 Influenza Type B (PCR) Negative (NEGATIVE) 07/08/23 13:43 RSV (PCR) Negative (NEGATIVE) 07/08/23 13:43 Plan (1) Atrial fibrillation with rapid ventricular response: Status: Acute (2) CHF exacerbation: Status: Acute Qualifiers: Heart failure type: unspecified Qualified Code(s): I50.9 - Heart failure, unspecified (3) Hypokalemia: Status: Acute (4) UTI (urinary tract infection): Status: Acute Qualifiers: Hematuria presence: without hematuria Urinary tract infection type: acute cystitis Qualified Code(s): N30.00 - Acute cystitis without hematuria (5) Hyperlipidemia: Status: Chronic Qualifiers: Hyperlipidemia type: mixed hyperlipidemia Qualified Code(s): E78.2 - Mixed hyperlipidemia (6) Diabetes mellitus, type 2: Status: Chronic Qualifiers: Diabetes mellitus complication status: without complication Diabetes mellitus buttermaker continuous churn insulin use: without nursing home use Qualified Code(s): E11.9 - Type 2 diabetes mellitus without complications (7) Hypertension: Status: Acute Qualifiers: Hypertension type: primary hypertension Qualified Code(s): I10 - Essential (primary) hypertension (8) Hypomagnesemia: Status: Acute
--- NOTE | 2023-07-14 09:35 | CARDIOVERT ---
Cardioversion Note Date of Procedure: Date: 07/14/23 Note Cardioversion note: preCV dx: afib post Cv dx: nsr anesthesia: per anesthesia procedure: consent obtained. pt sedated per anesthesia- standard MARIZA was preformed r/o contraindication to CV- 300J of synchronous electricity was given converting to nsr. pt moving all 4 and alert post procedure Impression: successful CV to nsr plan: cont doac/sotalol- follow QT
[2023-07-14] MEDS: NS + KCL 20 MEQ/L 1,000 ML with MAGNESIUM SULFATE 50% INJ VIAL 2 G IV SCH (09:39)
--- NOTE | 2023-07-14 09:54 | NOTE.SOAP ---
Soap Note Note for Day of Date of Exam: 07/14/23 Subjective Data Subjective Data: no c/o- MARIZA/cv successful- ekg post shows prolong QT so must cut back sotalol- also shows ant t inversion bothersome for LAD disease- was to do stress- will opt for cath- will call dr burgess rodriguez per family request to consider cath- MARIZA: MR only mild- so avery xplanation of recurrent pulm edema so must r/o CAD Objective Data Objective Data: bp up 160 p58 sinus clear lungs mary lou [place] no edema Assessment Assessment: afib s/p cv, only mild MR, prolong QT after sotalol load- hypertension- post cv ekg suggests LAD ischemia Plan Plan: add back arb for htn/chf- cut back sotalol and watch QT-change to long acting CCB for htn/cad/afib- discuss cath with dr ennis
[2023-07-14] MEDS: COZAAR PO SCH (10:06)
[2023-07-14] MEDS: CARDIZEM CD 180 MG 24-HR PO SCH (10:06)
[2023-07-14] MEDS: ASPIRIN 81 MG CHEWTAB PO SCH (12:43)
[2023-07-14] MEDS ORDERED: COZAAR PO ONE (15:50)
[2023-07-14] MEDS: CRESTOR TAB 10 MG PO SCH (20:16)
[2023-07-14] MEDS: KLONOPIN TAB 1 MG PO PRN (20:17)
[2023-07-14] MEDS: BETAPACE AF PO SCH (20:17)
--- NOTE | 2023-07-15 02:22 | EKG ---
Test Reason : r/o atrial fibrillation Blood Pressure : */* mmHG Vent. Rate : 104 BPM Atrial Rate : * BPM P-R Int : * ms QRS Dur : 104 ms QT Int : 380 ms P-R-T Axes : * 0 262 degrees QTc Int : 499 ms Atrial fibrillation with rapid ventricular response Minimal voltage criteria for LVH, may be normal variant ( [place] product ) Septal infarct , age undetermined T wave abnormality, consider anterior ischemia Abnormal ECG When compared with ECG of 14-JUL-2023 08:19, Atrial fibrillation has replaced Sinus rhythm Vent. rate has increased BY 47 BPM Septal infarct is now present T wave inversion less evident in Anterior leads Confirmed by Sudeep Harmon MD ([id number]) on 07/15/2023 7:00:42 AM Referred By: Confirmed By: Sudeep Harmon MD
[2023-07-15] MEDS ORDERED: CARDIZEM INJ 125 MG VIAL ONE (02:45)
[2023-07-15] MEDS ORDERED: ELIQUIS ONE (02:55)
[2023-07-15] MEDS: CARDIZEM INJ 125 MG VIAL 125 MG in NS 100 ML IV 100 ML IV PRN (03:08)
[2023-07-15] MEDS: ELIQUIS PO ONE (03:30)
[2023-07-15] MEDS: ELIQUIS PO SCH (03:30)
[2023-07-15 05:08] LABS: BASOPHILS % (AUTO) 0.6 % (0.2-1.0); EOSINOPHILS # (AUTO) 0.3 x10^3/uL (0.0-0.2); EOSINOPHILS % (AUTO) 5.5 % (0.9-2.9); HEMATOCRIT 42.8 % (36.0-47.0); HEMOGLOBIN 14.6 g/dL (12.0-16.0); LYMPHOCYTES # (AUTO) 0.8 X10^3/uL (1.3-2.9); LYMPHOCYTES % (AUTO) 16.1 % (21.0-51.0); MEAN CORPUSCULAR HEMOGLOBIN 29.3 pg (27.0-34.0); MEAN CORPUSCULAR VOLUME 86.3 fL (80.0-100.0); MEAN PLATELET VOLUME 8.7 fL (7.4-11.0); MONOCYTES # (AUTO) 0.5 x10^3/uL (0.3-0.8); NEUTROPHILS # (AUTO) 3.2 x10^3/uL (2.2-4.8); NEUTROPHILS % (AUTO) 67.8 % (42.0-75.0); PLATELET COUNT 143 X10^3/uL (150.0-450.0); RED BLOOD COUNT 4.97 X10^6/uL (3.5-5.4); RED CELL DISTRIBUTION WIDTH 13.8 % (11.6-16.5); WHITE BLOOD COUNT 4.7 X10^3/uL (3.6-10.0)
[2023-07-15 05:17] LABS: ALBUMIN 2.4 g/dL (3.4-5.0); CALCIUM 8.7 mg/dL (8.5-10.1); CARBON DIOXIDE 31.2 mmol/L (21-32); CREATININE 1.16 mg/dL (0.55-1.02); MAGNESIUM 1.6 mg/dL (2.0-2.9); POTASSIUM 3.6 mmol/L (3.5-5.1); TOTAL PROTEIN 6.4 g/dL (6.4-8.2)
--- NOTE | 2023-07-15 05:50 | EKG ---
Test Reason : post cv Blood Pressure : */* mmHG Vent. Rate : 114 BPM Atrial Rate : 249 BPM P-R Int : * ms QRS Dur : 98 ms QT Int : 396 ms P-R-T Axes : * -3 221 degrees QTc Int : 545 ms Atrial flutter with variable AV block Anterior infarct (cited on or before 15-JUL-2023) Prolonged QT Abnormal ECG When compared with ECG of 15-JUL-2023 02:06, (Unconfirmed) Atrial flutter has replaced Atrial fibrillation Questionable change in initial forces of Septal leads Confirmed by Sudeep Harmon MD ([id number] on 07/15/2023 7:00:02 AM Referred By: Confirmed By: Sudeep Harmon MD
[2023-07-15] MEDS ORDERED: CONSULT PHARMACY - POTASSIUM & MAGNESIUM XX SCH (06:00)
[2023-07-15] MEDS: LASIX PO ONE (07:17)
[2023-07-15] MEDS ORDERED: ELIQUIS PO SCH (09:00)
[2023-07-15] MEDS: LOPRESSOR TAB 25 MG PO SCH (09:19)
[2023-07-15] MEDS: MAG-OX TAB PO SCH (09:19)
[2023-07-15] MEDS: K-DUR TAB 20 MEQ PO SCH (09:20)
--- NOTE | 2023-07-15 13:06 | NOTE.SOAP ---
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
[2023-07-15] MEDS: HEPARIN SODIUM IN D5W 25,000 UNITS/500 ML BAG IV PRN (14:33)
[2023-07-15 18:47] VITALS: O2SAT 98
[2023-07-15 19:05] VITALS: RESP 20
[2023-07-15] MEDS: NS 100 ML IV 100 ML ONE (19:05)
[2023-07-15 20:15] VITALS: BP 119/91; PULSE 117; TEMP 98.4
--- NOTE | 2023-07-16 15:38 | W.DIS.FURT ---
Summary of Discharge Discharge Summary of Date Date of Exam: 07/15/23 Admission Date Date of Admission: 07/08/23 Admission Diagnosis Patient Problems (Updated 07/13/23 @ 09:52 by Yady Kang) A-fib (Acute) I48.91 Hospital Course: Ms. Herrera is a 73-year-old female with a past medical history of GERD, high blood pressure, hypothyroidism, hyperlipidemia and diabetes presented with elevated heart rate. She was seen outpatient a week prior and was found to have atrial fibrillation. She was started on diltiazem outpatient. She continued to have elevated heart rate so came to the ER. She was noted to be in atrial fibrillation with RVR. She received IV push medications but heart rate continued to remain elevated over 120. She was started on Cardizem drip and admitted to the ICU for further management. Her labs were monitored daily and electrolytes were replaced as needed. She did not have any chest pain or shortness of breath. Cardiology was also consulted. Patient remained on Ca rdizem drip and p.o. Cardizem, sotalol was started but patient did not tolerate due to prolonged QT. She was also noted to have flash pulmonary edema and received IV Lasix. She underwent MARIZA and had cardioversion, converted to normal sinus rhythm. The following day, patient converted back to atrial fibrillation with a heart rate of 120s to 130s. She did not have any significant symptoms. Patient does see cardiology in [place]. Cardiology at [facility] recommended patient be transferred to [place] for further management. intermission coordinator was contacted and patient was accepted at [facility]. She was stable for transfer on current medications. Time spent for clinical assessment, reviewing labs and imaging, physical exam, discussing with other providers, decision making and documentation greater than 45 minutes Vital Signs: Vital Signs (72 hours) 07/13/23 09:00 07/13/23 10:00 07/13/23 11:00 Temperature Pulse Rate 120 H 122 H 124 H Respiratory Rate 27 H 27 H 22 Blood Pressure 147/101 156/96 136/91 O2 Sat by Pulse Oximetry 100 100 100 Oxygen Delivery Method Nasal Cannula Nasal Cannula Nasal Cannula Oxygen Flow Rate 4 4 4 FIO2% 07/13/23 12:00 07/13/23 13:00 07/13/23 14:00 Temperature Pulse Rate 123 H 123 H 114 H Respiratory Rate 31 H 28 H 30 H Blood Pressure 136/77 149/97 146/91 O2 Sat by Pulse Oximetry 100 94 L 99 Oxygen Delivery Method Nasal Cannula Nasal Cannula Nasal Cannula Oxygen Flow Rate 4 4 4 FIO2% 07/13/23 15:00 07/13/23 16:00 07/13/23 17:00 Temperature 97.8 F Pulse Rate 110 H 92 H 87 Respiratory Rate 31 H 20 16 Blood Pressure 136/91 122/74 110/78 O2 Sat by Pulse Oximetry 100 99 100 Oxygen Delivery Method Nasal Cannula Nasal Cannula Nasal Cannula Oxygen Flow Rate 4 4 4 FIO2% 07/13/23 18:00 07/13/23 19:00 07/13/23 19:00 Temperature Pulse Rate 100 H 94 H Respiratory Rate 24 22 Blood Pressure 108/70 117/70 O2 Sat by Pulse Oximetry 100 100 Oxygen Delivery Method Nasal Cannula Nasal Cannula Nasal Cannula Oxygen Flow Rate 4 4 3 FIO2% 07/13/23 20:00 07/13/23 21:00 07/13/23 21:14 Temperature 98.1 F 98.1 F Pulse Rate 78 102 H Respiratory Rate 22 24 Blood Pressure 131/77 101/76 O2 Sat by Pulse Oximetry 100 100 Oxygen Delivery Method Nasal Cannula Nasal Cannula Nasal Cannula Oxygen Flow Rate 4 4 3 FIO2% 32 07/13/23 21:14 07/13/23 22:00 07/13/23 23:00 Temperature Pulse Rate 86 93 H 80 Respiratory Rate 23 18 Blood Pressure 115/73 116/77 O2 Sat by Pulse Oximetry 99 100 100 Oxygen Delivery Method Nasal Cannula Nasal Cannula Oxygen Flow Rate 4 4 FIO2% 07/14/23 00:00 07/14/23 01:00 07/14/23 02:00 Temperature 98.3 F Pulse Rate 91 H 91 H 93 H Respiratory Rate 18 24 26 H Blood Pressure 121/83 140/77 109/87 O2 Sat by Pulse Oximetry 100 99 99 Oxygen Delivery Method Nasal Cannula Nasal Cannula Nasal Cannula Oxygen Flow Rate 4 4 4 FIO2% 07/14/23 03:00 07/14/23 04:00 07/14/23 05:00 Temperature 98.1 F Pulse Rate 81 79 96 H Respiratory Rate 24 19 24 Blood Pressure 146/66 114/74 140/79 O2 Sat by Pulse Oximetry 100 97 100 Oxygen Delivery Method Nasal Cannula Nasal Cannula Nasal Cannula Oxygen Flow Rate 4 4 4 FIO2% 07/14/23 06:00 07/14/23 07:00 07/14/23 07:00 Temperature Pulse Rate 95 H 91 H Respiratory Rate 20 34 H Blood Pressure 127/90 145/78 O2 Sat by Pulse Oximetry 100 100 Oxygen Delivery Method Nasal Cannula Oxygen Flow Rate 4 FIO2% 07/14/23 08:30 07/14/23 08:33 07/14/23 08:33 Temperature 98.0 F Pulse Rate 59 L 57 L Respiratory Rate 28 H Blood Pressure 153/67 O2 Sat by Pulse Oximetry 99 99 Oxygen Delivery Method Oxygen Flow Rate FIO2% 07/14/23 08:59 07/14/23 08:59 07/14/23 10:52 Temperature Pulse Rate 57 L Respiratory Rate Blood Pressure O2 Sat by Pulse Oximetry 100 Oxygen Delivery Method Nasal Cannula Nasal Cannula Oxygen Flow Rate 2 3 FIO2% 28 07/14/23 08:30 07/14/23 08:45 07/14/23 09:00 Temperature 97.8 F 97.8 F 97.8 F Pulse Rate 56 L 56 L 61 Respiratory Rate 21 19 26 H Blood Pressure 153/67 161/69 167/69 O2 Sat by Pulse Oximetry 99 99 100 Oxygen Delivery Method Oxygen Flow Rate FIO2% 07/14/23 09:15 07/14/23 09:30 07/14/23 10:30 Temperature 97.8 F 97.8 F 97.8 F Pulse Rate 58 L 59 L 59 L Respiratory Rate 20 20 29 H Blood Pressure 149/70 144/64 150/70 O2 Sat by Pulse Oximetry 100 100 100 Oxygen Delivery Method Oxygen Flow Rate FIO2% 07/14/23 11:30 07/14/23 12:30 07/14/23 13:30 Temperature 97.8 F 97.7 F 97.7 F Pulse Rate 61 61 63 Respiratory Rate 25 H 25 H 27 H Blood Pressure 151/70 159/70 173/78 O2 Sat by Pulse Oximetry 100 100 99 Oxygen Delivery Method Oxygen Flow Rate FIO2% 07/14/23 08:50 07/14/23 08:50 07/14/23 09:00 Temperature Pulse Rate 56 L 58 L Respiratory Rate 36 H 30 H Blood Pressure 161/69 O2 Sat by Pulse Oximetry 99 100 Oxygen Delivery Method Oxygen Flow Rate FIO2% 07/14/23 09:01 07/14/23 09:01 07/14/23 09:15 Temperature Pulse Rate 58 L 59 L Respiratory Rate 33 H 27 H Blood Pressure 167/69 O2 Sat by Pulse Oximetry 100 100 Oxygen Delivery Method Oxygen Flow Rate FIO2% 07/14/23 09:15 07/14/23 09:30 07/14/23 09:30 Temperature Pulse Rate 59 L Respiratory Rate 20 Blood Pressure 149/70 144/64 O2 Sat by Pulse Oximetry 100 Oxygen Delivery Method Oxygen Flow Rate FIO2% 07/14/23 09:45 07/14/23 09:45 07/14/23 10:00 Temperature Pulse Rate 62 Respiratory Rate 28 H Blood Pressure 158/74 152/70 O2 Sat by Pulse Oximetry 100 Oxygen Delivery Method Oxygen Flow Rate FIO2% 07/14/23 10:00 07/14/23 10:15 07/14/23 10:15 Temperature Pulse Rate 61 61 Respiratory Rate 24 33 H Blood Pressure 152/72 O2 Sat by Pulse Oximetry 100 100 Oxygen Delivery Method Oxygen Flow Rate FIO2% 07/14/23 10:30 07/14/23 10:30 07/14/23 10:45 Temperature Pulse Rate 59 L Respiratory Rate 29 H Blood Pressure 150/70 150/68 O2 Sat by Pulse Oximetry 100 Oxygen Delivery Method Oxygen Flow Rate FIO2% 07/14/23 10:45 07/14/23 11:00 07/14/23 11:00 Temperature Pulse Rate 60 59 L Respiratory Rate 27 H 21 Blood Pressure 159/73 O2 Sat by Pulse Oximetry 100 100 Oxygen Delivery Method Oxygen Flow Rate FIO2% 07/14/23 11:15 07/14/23 11:15 07/14/23 11:30 Temperature Pulse Rate 62 61 Respiratory Rate 29 H 25 H Blood Pressure 160/73 O2 Sat by Pulse Oximetry 100 100 Oxygen Delivery Method Oxygen Flow Rate FIO2% 07/14/23 11:30 07/14/23 11:45 07/14/23 11:45 Temperature Pulse Rate 60 Respiratory Rate 23 Blood Pressure 151/70 163/72 O2 Sat by Pulse Oximetry 100 Oxygen Delivery Method Oxygen Flow Rate FIO2% 07/14/23 12:00 07/14/23 12:00 07/14/23 12:15 Temperature Pulse Rate 62 Respiratory Rate 27 H Blood Pressure 149/68 154/68 O2 Sat by Pulse Oximetry 100 Oxygen Delivery Method Oxygen Flow Rate FIO2% 07/14/23 12:15 07/14/23 12:30 07/14/23 12:30 Temperature Pulse Rate 63 61 Respiratory Rate 28 H 30 H Blood Pressure 159/70 O2 Sat by Pulse Oximetry 100 100 Oxygen Delivery Method Oxygen Flow Rate FIO2% 07/14/23 13:00 07/14/23 13:01 07/14/23 13:01 Temperature Pulse Rate 65 63 Respiratory Rate 30 H 27 H Blood Pressure 173/78 O2 Sat by Pulse Oximetry 99 99 Oxygen Delivery Method Oxygen Flow Rate FIO2% 07/14/23 14:00 07/14/23 14:00 07/14/23 15:00 Temperature Pulse Rate 59 L 57 L Respiratory Rate 24 27 H Blood Pressure 179/74 O2 Sat by Pulse Oximetry 100 100 Oxygen Delivery Method Oxygen Flow Rate FIO2% 07/14/23 15:00 07/14/23 16:00 07/14/23 16:01 Temperature 98.2 F Pulse Rate 57 L 63 Respiratory Rate 32 H 30 H Blood Pressure 177/76 O2 Sat by Pulse Oximetry 100 100 Oxygen Delivery Method Oxygen Flow Rate FIO2% 07/14/23 16:01 07/14/23 17:00 07/14/23 17:02 Temperature Pulse Rate 61 60 Respiratory Rate 24 25 H Blood Pressure 103/65 O2 Sat by Pulse Oximetry 100 100 Oxygen Delivery Method Oxygen Flow Rate FIO2% 07/14/23 17:02 07/14/23 18:00 07/14/23 18:00 Temperature Pulse Rate 69 Respiratory Rate 22 Blood Pressure 173/71 163/81 O2 Sat by Pulse Oximetry 99 Oxygen Delivery Method Oxygen Flow Rate FIO2% 07/14/23 19:00 07/14/23 19:00 07/14/23 20:00 Temperature 98.5 F Pulse Rate 60 62 Respiratory Rate 16 19 Blood Pressure 168/70 150/64 O2 Sat by Pulse Oximetry 100 100 Oxygen Delivery Method Nasal Cannula Nasal Cannula Nasal Cannula Oxygen Flow Rate 2 2 2 FIO2% 07/14/23 20:00 07/14/23 20:00 07/14/23 21:00 Temperature Pulse Rate 62 62 Respiratory Rate 25 H Blood Pressure 165/78 O2 Sat by Pulse Oximetry 100 92 L Oxygen Delivery Method Nasal Cannula Nasal Cannula Oxygen Flow Rate 2 2 FIO2% 28 07/14/23 22:00 07/14/23 23:00 07/15/23 00:00 Temperature 97.8 F Pulse Rate 66 60 85 Respiratory Rate 17 19 15 Blood Pressure 164/76 156/74 189/89 O2 Sat by Pulse Oximetry 97 97 96 Oxygen Delivery Method Nasal Cannula Nasal Cannula Nasal Cannula Oxygen Flow Rate 2 2 2 FIO2% 07/15/23 01:00 07/15/23 02:00 07/15/23 03:00 Temperature Pulse Rate 92 H 113 H 121 H Respiratory Rate 16 17 20 Blood Pressure 160/88 156/87 157/95 O2 Sat by Pulse Oximetry 98 99 97 Oxygen Delivery Method Nasal Cannula Nasal Cannula Nasal Cannula Oxygen Flow Rate 2 2 2 FIO2% 07/15/23 03:30 07/15/23 04:00 07/15/23 05:00 Temperature 98.1 F Pulse Rate 123 H 121 H 122 H Respiratory Rate 18 19 22 Blood Pressure 151/91 139/89 153/94 O2 Sat by Pulse Oximetry 97 97 96 Oxygen Delivery Method Nasal Cannula Nasal Cannula Nasal Cannula Oxygen Flow Rate 2 2 2 FIO2% 07/15/23 06:00 07/15/23 07:00 07/15/23 08:00 Temperature 97.8 F Pulse Rate 115 H 125 H 120 H Respiratory Rate 22 16 19 Blood Pressure 103/79 154/90 122/91 O2 Sat by Pulse Oximetry 96 98 97 Oxygen Delivery Method Nasal Cannula Oxygen Flow Rate 2 FIO2% 07/15/23 09:13 07/15/23 09:13 07/15/23 07:00 Temperature Pulse Rate 112 H Respiratory Rate 19 Blood Pressure O2 Sat by Pulse Oximetry 96 Oxygen Delivery Method Nasal Cannula Nasal Cannula Oxygen Flow Rate 2 2 FIO2% 28 07/15/23 09:00 07/15/23 10:00 07/15/23 11:00 Temperature Pulse Rate 120 H 116 H 115 H Respiratory Rate 28 H 14 25 H Blood Pressure 155/97 135/88 141/94 O2 Sat by Pulse Oximetry 96 97 96 Oxygen Delivery Method Oxygen Flow Rate FIO2% 07/15/23 12:03 07/15/23 13:01 07/15/23 13:59 Temperature 98.1 F Pulse Rate 122 H 118 H 98 H Respiratory Rate 24 29 H 18 Blood Pressure 130/89 158/112 152/91 O2 Sat by Pulse Oximetry 97 87 L 95 Oxygen Delivery Method Oxygen Flow Rate FIO2% 07/15/23 14:00 07/15/23 15:00 07/15/23 16:00 Temperature Pulse Rate 99 H 106 H 125 H Respiratory Rate 28 H 19 25 H Blood Pressure 152/91 O2 Sat by Pulse Oximetry 95 95 96 Oxygen Delivery Method Oxygen Flow Rate FIO2% 07/15/23 17:00 07/15/23 18:00 07/15/23 19:00 Temperature Pulse Rate 116 H 106 H Respiratory Rate 26 H 22 Blood Pressure 150/91 151/78 O2 Sat by Pulse Oximetry 96 98 Oxygen Delivery Method Nasal Cannula Oxygen Flow Rate 2 FIO2% 07/15/23 19:00 07/15/23 19:00 07/15/23 20:00 Temperature Pulse Rate 116 H 113 H Respiratory Rate 20 23 Blood Pressure 155/83 O2 Sat by Pulse Oximetry 98 97 Oxygen Delivery Method Oxygen Flow Rate FIO2% 07/15/23 20:03 07/15/23 20:03 Temperature 98.4 F Pulse Rate 117 H Respiratory Rate 20 Blood Pressure 119/91 O2 Sat by Pulse Oximetry 98 Oxygen Delivery Method Oxygen Flow Rate FIO2% Labs: Laboratory Last Values WBC 4.7 X10^3/uL (3.6-10.0) 07/15/23 04:48 RBC 4.97 X10^6/uL (3.5-5.4) 07/15/23 04:48 Hgb 14.6 g/dL (12.0-16.0) 07/15/23 04:48 Hct 42.8 % (36.0-47.0) 07/15/23 04:48 MCV 86.3 fL (80.0-100.0) 07/15/23 04:48 MCH 29.3 pg (27.0-34.0) 07/15/23 04:48 MCHC 34.0 g/dL (33.0-35.0) 07/15/23 04:48 RDW 13.8 % (11.6-16.5) 07/15/23 04:48 Plt Count 143 X10^3/uL (150.0-450.0) L 07/15/23 04:48 MPV 8.7 fL (7.4-11.0) 07/15/23 04:48 Neut % (Auto) 67.8 % (42.0-75.0) 07/15/23 04:48 Lymph % (Auto) 16.1 % (21.0-51.0) L 07/15/23 04:48 [place] % (Auto) 10.0 % (0.0-13.0) 07/15/23 04:48 Eos % (Auto) 5.5 % (0.9-2.9) H 07/15/23 04:48 Baso % (Auto) 0.6 % (0.2-1.0) 07/15/23 04:48 Neut # (Auto) 3.2 x10^3/uL (2.2-4.8) 07/15/23 04:48 Lymph # (Auto) 0.8 X10^3/uL (1.3-2.9) L 07/15/23 04:48 [place] # (Auto) 0.5 x10^3/uL (0.3-0.8) 07/15/23 04:48 Eos # (Auto) 0.3 x10^3/uL (0.0-0.2) H 07/15/23 04:48 Baso # (Auto) 0.0 X10^3/uL (0.0-0.1) 07/15/23 04:48 Absolute Nucleated RBC 0.1 /100WBC 07/15/23 04:48 PT Cancelled 07/15/23 04:48 INR Target Range Cancelled 07/15/23 04:48 INR Cancelled 07/15/23 04:48 APTT Cancelled 07/15/23 04:48 PTT Comment Cancelled 07/15/23 04:48 D-Dimer 0.57 ug/ml (0.0-0.57) 07/09/23 05:14 Sodium 144 mmol/L (136-145) 07/15/23 04:48 Corrected Sodium 148 mmol/L (136-145) H 07/15/23 04:48 Potassium 3.6 mmol/L (3.5-5.1) 07/15/23 04:48 Chloride 104 mmol/L (98-107) 07/15/23 04:48 Carbon Dioxide 31.2 mmol/L (21-32) 07/15/23 04:48 BUN 28 mg/dL (7-18) H 07/15/23 04:48 Creatinine 1.16 mg/dL (0.55-1.02) H 07/15/23 04:48 Est GFR (MDRD) Af Amer 59 (>60) 07/15/23 04:48 Est GFR (MDRD) Non-Af 49 (>60) L 07/15/23 04:48 Glucose 281 mg/dL (65-99) H 07/15/23 04:48 POC Glucose (mg/dL) 368 mg/dL (65-99) H 07/11/23 21:21 Calcium 8.7 mg/dL (8.5-10.1) 07/15/23 04:48 Corrected Calcium 10.0 mg/dL (8.5-10.1) 07/15/23 04:48 Magnesium 1.6 mg/dL (2.0-2.9) L 07/15/23 04:48 Total Bilirubin 0.50 mg/dL (0.2-1.0) 07/15/23 04:48 AST 32 Units/L (15-37) 07/15/23 04:48 ALT 34 Units/L (12-78) 07/15/23 04:48 Alkaline Phosphatase 116 Units/L (46-116) 07/15/23 04:48 Troponin I High Sens 12.5 ng/L (4.0-60.0) 07/12/23 20:30 B-Natriuretic Peptide 553 pg/mL (0-79) H 07/10/23 04:28 Total Protein 6.4 g/dL (6.4-8.2) 07/15/23 04:48 Albumin 2.4 g/dL (3.4-5.0) L 07/15/23 04:48 Globulin 4.0 g/dL (2.5-4.5) 07/15/23 04:48 Albumin/Globulin Ratio 0.6 Ratio (1.1-2.1) L 07/15/23 04:48 TSH 3rd Generation 4.944 uIU/mL (0.358-3.74) H 07/09/23 05:14 Specimen Type Catherized urine 07/12/23 09:32 Urine Color Yellow (YELLOW) 07/12/23 09:32 Urine Appearance Clear (CLEAR) 07/12/23 09:32 Urine pH 6.0 (5.0 - 8.0) 07/12/23 09:32 Ur Specific [place] 1.025 (1.000-1.030) 07/12/23 09:32 Urine Protein 2+ (NEGATIVE) 07/12/23 09:32 Urine Glucose (UA) Negative (NEGATIVE) 07/12/23 09:32 Urine Ketones Negative (NEGATIVE) 07/12/23 09:32 Urine Blood 5+ (NEGATIVE) 07/12/23 09:32 Urine Nitrite Negative (NEGATIVE) 07/12/23 09:32 Urine Bilirubin Negative (NEGATIVE) 07/12/23 09:32 Urine Urobilinogen 2+ (NORMAL) 07/12/23 09:32 Ur Leukocyte Esterase 1+ (NEGATIVE) 07/12/23 09:32 Urine RBC 10-20 /HPF (0-3) A 07/12/23 09:32 Urine WBC 10-20 /HPF (0-5) A 07/12/23 09:32 Ur Squamous Epith Cells Rare /HPF (NEGATIVE) 07/12/23 09:32 Amorphous Sediment Trace /HPF (NEGATIVE) 07/09/23 21:45 Urine Bacteria Trace /HPF (NEGATIVE) 07/12/23 09:32 Hyaline Casts Rare /LPF (NEGATIVE) 07/12/23 09:32 Urine Mucus Few /HPF (NEGATIVE) 07/12/23 09:32 Ur Culture Indicated? Yes/culture set up 07/12/23 09:32 SARS-CoV-2 (PCR) Negative (NEGATIVE) 07/08/23 13:43 Influenza Type A (PCR) Negative (NEGATIVE) 07/08/23 13:43 Influenza Type B (PCR) Negative (NEGATIVE) 07/08/23 13:43 RSV (PCR) Negative (NEGATIVE) 07/08/23 13:43 Resp Viral Panel (PCR) See scanned report 07/12/23 08:35 Reason For Visit: AFIB WITH RVR Discharge Diagnosis All Active Problems (Updated 07/13/23 @ 09:52 by Yady Kang) CHF exacerbation (Acute) UTI (urinary tract infection) (Acute) Hypertension (Acute) Hypomagnesemia (Acute) Hypokalemia (Acute) Atrial fibrillation with rapid ventricular response (Acute) Acute bronchitis (Acute) Gastroenteritis (Acute) Nausea vomiting and diarrhea (Acute) Dehydration (Acute) Weakness (Acute) Hyperlipidemia (Chronic) Diabetes mellitus, type 2 (Chronic) Hypothyroidism (Chronic) Anxiety (Acute) Depression (Chronic) Mitral valve prolapse (Chronic) COPD (chronic obstructive pulmonary disease) (Chronic) Sleep apnea (Chronic) GERD (gastroesophageal reflux disease) (Chronic) Fatty liver (Chronic) Arthritis (Chronic) Dizziness (Acute) Left ankle sprain (Acute) Contusion of left foot (Acute) Left knee sprain (Acute) Sprain of right shoulder (Acute) Intractable neuropathic pain of right lower extremity (Acute) Intractable pain (Acute) Radiculopathy of leg (Acute) Headache (Acute) Fall (Acute) Contusion of knee, left (Acute) A-fib (Acute) Plan of Treatment: Continue with present treatment and follow up plan. Pt is to keep follow up appointment as instructed and take medications as ordered. Discharge Medications Discharge Medications: codeine Allergy (Verified 05/27/19 13:02) CONTINUE taking the following medications budesonide-formoterol HFA 160 mcg-4.5 mcg/actuation aerosol inhaler 2 puff inhalation BID 07/08/23 [History] diclofenac sodium 1 % topical gel 2 g topical QID 07/08/23 [History] diltiazem HCl 180 mg tablet,extended release 24 hr (Matzim LA) 180 mg PO QAM 07/08/23 [History] esomeprazole magnesium 40 mg capsule,delayed release 40 mg PO QDAY 07/08/23 [History] famotidine 40 mg tablet 40 mg PO BID 07/08/23 [History] hydromorphone 2 mg tablet 2 mg PO Q4-6H PRN 07/08/23 [History] levothyroxine 50 mcg tablet 50 mcg PO QDAY 07/08/23 [History] levothyroxine 50 mcg tablet (Synthroid) 50 mcg PO QAM 07/08/23 [History] metoclopramide HCl 5 mg tablet (Reglan) 5 mg PO QACHS 07/08/23 [History] promethazine 25 mg tablet 25 mg PO Q4-6H PRN 07/08/23 [History] tirzepatide 5 mg/0.5 mL subcutaneous pen injector (Mounjaro) 5 mg subcut QWEEK 07/08/23 [History] tramadol 50 mg tablet 50 mg PO Q6H PRN 07/08/23 [History] rosuvastatin 10 mg tablet (Crestor) 10 mg PO HS 07/14/23 [History] New Prescriptions rosuvastatin 10 mg tablet 10 mg PO HS #30 tabs 07/14/23 [Rx] Discharge Disposition Discharge Disposition: [facility] Discharge Condition: Stable Discharge Plan Discharge Plan Hospital Course: Ms. Herrera is a 73-year-old female with a past medical history of GERD, high blood pressure, hypothyroidism, hyperlipidemia and diabetes presented with elevated heart rate. She was seen outpatient a week prior and was found to have atrial fibrillation. She was started on diltiazem outpatient. She continued to have elevated heart rate so came to the ER. She was noted to be in atrial fibrillation with RVR. She received IV push medications but heart rate continued to remain elevated over 120. She was started on Cardizem drip and admitted to the ICU for further management. Her labs were monitored daily and electrolytes were replaced as needed. She did not have any chest pain or shortness of breath. Cardiology was also consulted. Patient remained on Cardizem drip and p.o. Cardizem, sotalol was started but patient did not tolerate due to prolonged QT. She was also noted to have flash pulmonary edema and received IV Lasix. She underwent MARIZA and had cardioversion, converted to normal sinus rhythm. The following day, patient converted back to atrial fibrillation with a heart rate of 120s to 130s. She did not have any significant symptoms. Patient does see cardiology in [place]. Cardiology at [facility] recommended patient be transferred to [place] for further management. intermission coordinator was contacted and patient was accepted at [facility]. She was stable for transfer on current medications. Time spent for clinical assessment, reviewing labs and imaging, physical exam, discussing with other providers, decision making and documentation greater than 45 minutes Patient Disposition: XF [facility]OS[facility] Condition: Stable Health Concerns: Post Hospitalization: new medications and changes needed to prevent readmission or further decline. Pt educated and given instructions on all concerns. Plan of Treatment: Continue with present treatment and follow up plan. Pt is to keep follow up appointment as instructed and take medications as ordered. Prescriptions: New rosuvastatin 10 mg Tablet 10 mg PO HS Qty: 30 0RF No Action hydrochlorothiazide 25 MG tablet 25 mg PO DAILY ondansetron 8 mg tablet,disintegrating 8 mg Translingual TID PRN levothyroxine 50 mcg tablet 50 mcg PO HS montelukast 10 mg tablet 10 mg PO HS amitriptyline 50 mg tablet 50 mg PO HS famotidine 40 mg Tablet 40 mg PO BID tramadol 50 mg Tablet 50 mg PO Q6H PRN hydromorphone 2 mg Tablet 2 mg PO Q4-6H PRN metoclopramide HCl [Reglan] 5 mg Tablet 5 mg PO QACHS levothyroxine [Synthroid] 50 mcg tablet 50 mcg PO QAM levothyroxine 50 mcg Tablet 50 mcg PO QDAY esomeprazole magnesium 40 mg Capsule,Delayed Release(Dr/Ec) 40 mg PO QDAY promethazine 25 mg Tablet 25 mg PO Q4-6H PRN diltiazem HCl [Matzim LA] 180 mg Tablet Extended Release 24 Hr 180 mg PO QAM budesonide-formoterol 160-4.5 mcg/actuation Hfa Aerosol Inhaler 2 puff INHALATION BID diclofenac sodium [Voltaren] 1 % Gel 2 g TOPICAL QID Rx Instructions: apply to single elbow, wrist or hand; for hand includes palm/fingers/back of hand Mounjaro 5 mg/0.5 mL Pen Injector 5 mg SUBCUT QWEEK rosuvastatin [Crestor] 10 mg Tablet 10 mg PO HS Orders to Discharge Patient Discharge Orders: Discharge by Transfer to Outside Facility (Routine); Ordered 07/15/23 Ordered By: JUNIOR PIERRE Follow ups/Referrals Follow ups/Referrals: Oumar Jeronimo [Primary Care Provider] - 3 days
== END 2023-07-15 20:20 | disposition short-term general hospital (02) | DRG 309 ==
LOC: ER 13:18 → ICU 16:00
PROVIDERS: ADMIT Internal Medicine; ATTEND Internal Medicine
DX: Z79.01 Long term (current) use of anticoagulants; K59.09 Other constipation; K21.9 Gastro-esophageal reflux disease without esophagitis; I11.0 Hypertensive heart disease with heart failure; E83.42 Hypomagnesemia; E87.6 Hypokalemia; E11.65 Type 2 diabetes mellitus with hyperglycemia; E78.2 Mixed hyperlipidemia; I48.91 Unspecified atrial fibrillation; Z20.822 Contact with and (suspected) exposure to COVID-19; J44.9 Chronic obstructive pulmonary disease, unspecified; E03.8 Other specified hypothyroidism; N30.00 Acute cystitis without hematuria; R00.0 Tachycardia, unspecified; R06.02 Shortness of breath; R60.0 Localized edema; I50.9 Heart failure, unspecified; R06.03 Acute respiratory distress

== ENCOUNTER 2023-10-21 01:19 | Observation (INO) ==
--- NOTE | 2023-10-21 01:30 | DR.SOBA ---
HPI Time Seen Time Seen by Provider: 10/21/23 01:30 HPI Comment HPI Comment: 73 y/o using oxygen at 2 lpm daily noted cough, cp and sob earlier today which has worsened; sats were very low when ems arrived, and oxygen was turned up, jn x 2, solu-medrol and lasix given; she's still very sob PMH PMH Past Medical History: Anxiety, CHF, COPD, Depression, Diabetes, Dyslipidemia, GERD, Hypertension, Hypothyroidism and Sleep Apnea Past Surgical History: Yes Surgical History: Cholecystectomy, Hysterectomy and Other Family History Family Medical History: Diabetes Mellitus, Cancer, [place], Coronary Artery Disease, Heart Failure and Hypertension Social History Do you use any recreational Drugs:: No ROS Review of Systems Constitutional: No Symptoms Reported Eyes: No Symptoms Reported ENTM: No Symptoms Reported Respiratoy: See HPI Cardiovascular: See HPI and Chest Pain Gastrointestinal/Abdominal: No Symptoms Reported Genitourinary: No Symptoms Reported Neurological: No Symptoms Reported Musculoskeletal: No Symptoms Reported Integumentary: No Symptoms Reported Hematologic/Lymphatic: No Symptoms Reported Endocrine: No Symptoms Reported Psychiatric: No Symptoms Reported PE Vital Signs Vitals: Vital Signs Temperature 98.0 F Pulse Rate 71 Pulse Rate 73 Pulse Rate 72 Pulse Rate 72 Pulse Rate 77 Pulse Rate 79 Pulse Rate 79 Pulse Rate 78 Pulse Rate 80 Pulse Rate 81 Pulse Rate 80 Pulse Rate 79 Pulse Rate 80 Respiratory Rate 38 Respiratory Rate 49 Respiratory Rate 42 Respiratory Rate 43 Respiratory Rate 46 Respiratory Rate 58 Respiratory Rate 58 Respiratory Rate 58 Respiratory Rate 57 Respiratory Rate 41 Respiratory Rate 53 Respiratory Rate 54 Blood Pressure 142/63 Blood Pressure 167/73 Blood Pressure 148/67 Blood Pressure 165/72 Blood Pressure 165/72 Blood Pressure 180/75 Blood Pressure 180/75 O2 Sat by Pulse Oximetry 96 O2 Sat by Pulse Oximetry 93 O2 Sat by Pulse Oximetry 92 O2 Sat by Pulse Oximetry 92 O2 Sat by Pulse Oximetry 98 O2 Sat by Pulse Oximetry 98 O2 Sat by Pulse Oximetry 98 O2 Sat by Pulse Oximetry 98 O2 Sat by Pulse Oximetry 97 O2 Sat by Pulse Oximetry 97 O2 Sat by Pulse Oximetry 97 O2 Sat by Pulse Oximetry 97 O2 Sat by Pulse Oximetry 96 General Limitations: No Limitations General Appearance: Alert and In No Apparent Distress Head Head Exam: Normal Inspection Eyes Eye exam: Normal Appearance ENT ENT Exam: Normal Exam Neck Neck Exam: Normal Inspection Chest Chest Inspection: Normal Inspection Respiratory Respiratory Exam: Normal Lung Sounds Bilat (anteriorly, increase wob) Respiratory Exam: Bilateral: Clear to Auscultation Cardiovascular Cardiovascular Exam: Regular Rate and Normal Rhythm Abdominal Exam Abdominal Exam: Normal Inspection, Normal Bowel Sounds and Soft Extremities Extremities Exam: Normal Inspection Back Back Exam: Normal Inspection Neurologic Neurological Exam: Alert and Oriented X3 Psychiatric Psychiatric Exam: Normal Affect and Normal Mood Skin Skin Exam: Warm, Dry, Intact and Normal Color COURSE Consultation Call Returned: 04:24 (Dr Kumar accepts for Dr Kang.) [facility] Labs Reviewed Laboratory Results Reviewed?: Yes 10/21/23 01:45 10/21/23 01:45 Laboratory: WBC 6.3 X10^3/uL (3.6-10.0) 10/21/23 01:45 RBC 4.82 X10^6/uL (3.5-5.4) 10/21/23 01:45 Hgb 13.4 g/dL (12.0-16.0) 10/21/23 01:45 Hct 41.3 % (36.0-47.0) 10/21/23 01:45 MCV 85.5 fL (80.0-100.0) 10/21/23 01:45 MCH 27.8 pg (27.0-34.0) 10/21/23 01:45 MCHC 32.5 g/dL (33.0-35.0) L 10/21/23 01:45 RDW 14.3 % (11.6-16.5) 10/21/23 01:45 Plt Count 126 X10^3/uL (150.0-450.0) L 10/21/23 01:45 MPV 8.7 fL (7.4-11.0) 10/21/23 01:45 Neut % (Auto) 84.2 % (42.0-75.0) H 10/21/23 01:45 Lymph % (Auto) 7.0 % (21.0-51.0) L 10/21/23 01:45 [place] % (Auto) 6.7 % (0.0-13.0) 10/21/23 01:45 Eos % (Auto) 1.4 % (0.9-2.9) 10/21/23 01:45 Baso % (Auto) 0.7 % (0.2-1.0) 10/21/23 01:45 Neut # (Auto) 5.3 x10^3/uL (2.2-4.8) H 10/21/23 01:45 Lymph # (Auto) 0.4 X10^3/uL (1.3-2.9) L 10/21/23 01:45 [place] # (Auto) 0.4 x10^3/uL (0.3-0.8) 10/21/23 01:45 Eos # (Auto) 0.1 x10^3/uL (0.0-0.2) 10/21/23 01:45 Baso # (Auto) 0.0 X10^3/uL (0.0-0.1) 10/21/23 01:45 Absolute Nucleated RBC 0.0 /100WBC 10/21/23 01:45 Sodium 143 mmol/L (136-145) 10/21/23 01:45 Corrected Sodium 145 mmol/L (136-145) 10/21/23 01:45 Potassium 3.5 mmol/L (3.5-5.1) 10/21/23 01:45 Chloride 102 mmol/L (98-107) 10/21/23 01:45 Carbon Dioxide 35.7 mmol/L (21-32) H 10/21/23 01:45 BUN 19 mg/dL (7-18) H 10/21/23 01:45 Creatinine 1.05 mg/dL (0.55-1.02) H 10/21/23 01:45 Est GFR (MDRD) Af Amer > 60 (>60) 10/21/23 01:45 Est GFR (MDRD) Non-Af 55 (>60) L 10/21/23 01:45 Glucose 184 mg/dL (65-99) H 10/21/23 01:45 Calcium 9.0 mg/dL (8.5-10.1) 10/21/23 01:45 Corrected Calcium 9.6 mg/dL (8.5-10.1) 10/21/23 01:45 Total Bilirubin 1.00 mg/dL (0.2-1.0) 10/21/23 01:45 AST 31 Units/L (15-37) 10/21/23 01:45 ALT 22 Units/L (12-78) 10/21/23 01:45 Alkaline Phosphatase 75 Units/L (46-116) 10/21/23 01:45 Creatine Kinase 72 Units/L (26-192) 10/21/23 01:45 Troponin I High Sens 23.4 ng/L (4.0-60.0) 10/21/23 01:45 B-Natriuretic Peptide 488 pg/mL (0-79) H 10/21/23 01:45 Total Protein 7.0 g/dL (6.4-8.2) 10/21/23 01:45 Albumin 3.3 g/dL (3.4-5.0) L 10/21/23 01:45 Globulin 3.7 g/dL (2.5-4.5) 10/21/23 01:45 Albumin/Globulin Ratio 0.9 Ratio (1.1-2.1) L 10/21/23 01:45 Specimen Type Catherized urine 10/21/23 02:10 Urine Color Pale yellow (YELLOW) 10/21/23 02:10 Urine Appearance Clear (CLEAR) 10/21/23 02:10 Urine pH 6.0 (5.0 - 8.0) 10/21/23 02:10 Ur Specific [place] 1.010 (1.000-1.030) 10/21/23 02:10 Urine Protein 3+ (NEGATIVE) 10/21/23 02:10 Urine Glucose (UA) 3+ (NEGATIVE) 10/21/23 02:10 Urine Ketones Negative (NEGATIVE) 10/21/23 02:10 Urine Blood 2+ (NEGATIVE) 10/21/23 02:10 Urine Nitrite Negative (NEGATIVE) 10/21/23 02:10 Urine Bilirubin Negative (NEGATIVE) 10/21/23 02:10 Urine Urobilinogen Normal (NORMAL) 10/21/23 02:10 Ur Leukocyte Esterase Negative (NEGATIVE) 10/21/23 02:10 Urine RBC 3-5 /HPF (0-3) A 10/21/23 02:10 Urine WBC None seen /HPF (0-5) 10/21/23 02:10 Ur Squamous Epith Cells Rare /HPF (NEGATIVE) 10/21/23 02:10 Urine Bacteria Negative /HPF (NEGATIVE) 10/21/23 02:10 Ur Culture Indicated? No/not indicated 10/21/23 02:10 SARS-CoV-2 (PCR) Positive (NEGATIVE) A 10/21/23 02:10 Influenza Type A (PCR) Negative (NEGATIVE) 10/21/23 02:10 Influenza Type B (PCR) Negative (NEGATIVE) 10/21/23 02:10 RSV (PCR) Negative (NEGATIVE) 10/21/23 02:10 XRAY XRAY Interpreted by: Both X-ray Results: pcxr: 1. Multifocal alveolar airspace disease is seen in the bilateral lower lung zones which appears worse when compared to the prior examination. This may represent acute or chronic airspace disease. Follow-up to complete resolution may be obtained as clinically indicated. Opioid Opioid Risk Tool Age (Jesse box if 16-45): No History of Preadolescent Sexual Abuse: No Total: 0 Total Score Risk Category: Low Risk Copyright: Sagar WISDOM predicting aberrant behaviors Discharge Plan Diagnosis Discharge Problem: COVID-19, A-fib, CHF (congestive heart failure) Discharge Plan Patient Disposition: ADMITTED INPATIENT Condition: Stable Prescriptions: No Action clonazepam 1 mg tablet 1 mg PO QHS furosemide 40 mg tablet 40 mg PO QDAY PRN (Reason: edema) Qty: 60 2RF Rx Instructions: TAKE NEEDED FOR SWELLING montelukast 10 mg tablet 10 mg PO QHS insulin degludec [Tresiba FlexTouch U-200] 200 unit/mL (3 mL) insulin pen 18 - 28 unit subcut QAM Rx Instructions: TAKE 18-28 UNITS DEPENDING ON BLOOD SUGAR amlodipine 5 mg tablet 5 mg PO QAM AND QPM metoclopramide HCl 5 mg tablet 5 mg PO QAM AND QPM gabapentin [Neurontin] 600 mg Tablet 600 mg PO BID Rx Instructions: PT TAKES 1 CAPSULE AT QPM AND 1 CAPSULE AT HS albuterol sulfate 2.5 mg /3 mL (0.083 %) solution for nebulization 2.5 mg inhalation TID PRN diclofenac sodium 1 % gel 1 g TOPICAL TID PRN cholecalciferol (vitamin D3) [Vitamin D3] 125 mcg (5,000 unit) Tablet 125 mcg PO QAM potassium chloride 10 mEq tablet extended release 10 meq PO QDAY PRN Rx Instructions: TAKE IF LASIX IS TAKEN magnesium oxide 300 mg magnesium tablet 300 mg PO QAM losartan 50 mg tablet 50 mg PO QAM AND QPM metoprolol tartrate 25 mg tablet 25 mg PO QAM AND QPM esomeprazole magnesium 40 mg Capsule,Delayed Release(Dr/Ec) 40 mg PO QAM AND QPM atorvastatin 20 mg tablet 20 mg PO QHS donepezil 10 mg tablet 10 mg PO QHS levothyroxine [Synthroid] 50 mcg tablet 50 mcg PO QAM paroxetine HCl 20 mg tablet 20 mg PO QAM ropinirole 0.5 mg tablet 0.5 mg PO QHS tizanidine 2 mg capsule 2 mg PO QPM fenofibrate 160 mg tablet 160 mg PO QAM Eliquis 5 mg tablet 5 mg PO QAM AND QPM dapagliflozin propanediol [Farxiga] 10 mg tablet 10 mg PO QAM Health Concerns: Post Hospitalization: new medications and changes needed to prevent readmission or further decline. Pt educated and given instructions on all concerns. Plan of Treatment: Continue with present treatment and follow up plan. Pt is to keep follow up appointment as instructed and take medications as ordered. Follow ups/Referrals Follow ups/Referrals: NFD,None [Primary Care Provider] - 3 days
[2023-10-21 01:36] VITALS: BMI 29.9
--- NOTE | 2023-10-21 01:39 | EKG ---
Test Reason : cp, sob Blood Pressure : */* mmHG Vent. Rate : 82 BPM Atrial Rate : 82 BPM P-R Int : 144 ms QRS Dur : 80 ms QT Int : 396 ms P-R-T Axes : 68 0 -35 degrees QTc Int : 462 ms Normal sinus rhythm Nonspecific T wave abnormality Abnormal ECG When compared with ECG of 19-AUG-2023 07:13, Questionable change in QRS axis QT has shortened Confirmed by Sudeep Harmon MD ([id number]) on 10/21/2023 7:26:18 AM Referred By: Confirmed By: Sudeep Harmon MD
[2023-10-21 01:58] LABS: BASOPHILS % (AUTO) 0.7 % (0.2-1.0); EOSINOPHILS # (AUTO) 0.1 x10^3/uL (0.0-0.2); EOSINOPHILS % (AUTO) 1.4 % (0.9-2.9); HEMATOCRIT 41.3 % (36.0-47.0); HEMOGLOBIN 13.4 g/dL (12.0-16.0); LYMPHOCYTES # (AUTO) 0.4 X10^3/uL (1.3-2.9); MEAN CORPUSCULAR HEMOGLOBIN 27.8 pg (27.0-34.0); MEAN CORPUSCULAR HGB CONC 32.5 g/dL (33.0-35.0); MEAN CORPUSCULAR VOLUME 85.5 fL (80.0-100.0); MEAN PLATELET VOLUME 8.7 fL (7.4-11.0); MONOCYTES # (AUTO) 0.4 x10^3/uL (0.3-0.8); MONOCYTES % (AUTO) 6.7 % (0.0-13.0); NEUTROPHILS # (AUTO) 5.3 x10^3/uL (2.2-4.8); NEUTROPHILS % (AUTO) 84.2 % (42.0-75.0); PLATELET COUNT 126 X10^3/uL (150.0-450.0); RED BLOOD COUNT 4.82 X10^6/uL (3.5-5.4); RED CELL DISTRIBUTION WIDTH 14.3 % (11.6-16.5); WHITE BLOOD COUNT 6.3 X10^3/uL (3.6-10.0)
[2023-10-21 02:12] LABS: ALANINE AMINOTRANSFERASE 22 Units/L (12-78); ALBUMIN 3.3 g/dL (3.4-5.0); ALKALINE PHOSPHATASE 75 Units/L (46-116); ASPARTATE AMINO TRANSFERASE 31 Units/L (15-37); BLOOD UREA NITROGEN 19 mg/dL (7-18); CARBON DIOXIDE 35.7 mmol/L (21-32); CHLORIDE 102 mmol/L (98-107); COR CA(FOR HYPOALB) 9.6 mg/dL (8.5-10.1); COR NA(FOR HYPERGLY) 145 mmol/L (136-145); CREATINE KINASE 72 Units/L (26-192); CREATININE 1.05 mg/dL (0.55-1.02); GLUCOSE 184 mg/dL (65-99); POTASSIUM 3.5 mmol/L (3.5-5.1); SODIUM 143 mmol/L (136-145); eGFR NON BLACK RACES 55 (>60)
[2023-10-21 02:19] LABS: APPEARANCE,URINE CLEAR (CLEAR); BILIRUBIN,URINE NEGATIVE (NEGATIVE); BLOOD/HEMOGLOBIN,URINE 2+ (NEGATIVE); COLOR,URINE PALE YELLOW (YELLOW); GLUCOSE, URINE 3+ (NEGATIVE); KETONES,URINE NEGATIVE (NEGATIVE); LEUKOCYTE ESTERASE ,URINE NEGATIVE (NEGATIVE); NITRITES,URINE NEGATIVE (NEGATIVE); PROTEIN,URINE 3+ (NEGATIVE); UROBILINOGEN,URINE NORMAL (NORMAL)
[2023-10-21 02:29] LABS: BACTERIA,URINE NEGATIVE /HPF (NEGATIVE); SQUAMOUS EPITHELIAL CELL,UR RARE /HPF (NEGATIVE)
--- NOTE | 2023-10-21 04:17 | RAD ---
EXAM:FRONTAL VIEW CHEST X-RAYHISTORY:Chest painCOMPARISON:08/19/2023FINDINGS:M ultifocal alveolar airspace disease is seen in the bilateral lower lung zones which appears worse when compared to the prior examination.The heart size is within normal limits.The mediastinum is unremarkable.There is no evidence of pleural effusion or gross pneumothorax.The trachea is midline.IMPRESSION:1. Multifocal alveolar airspace disease is seen in the bilateral lower lung zones which appears worse when compared to the prior examination. This may represent acute or chronic airspace disease. Follow-up to complete resolution may be obtained as clinically indicated.THIS IS AN ELECTRONICALLY VERIFIED FINAL REPORT10/21/2023 4:13 AM - Electronically signed by Ever Zavala MD
[2023-10-21] MEDS: ZITHROMAX INJ 500 MG VIAL 500 MG in NS 250 ML IV 250 ML IV SCH (04:29)
[2023-10-21] MEDS: CONSULT PHARMACY - POTASSIUM & MAGNESIUM XX SCH (05:47)
[2023-10-21] MEDS ORDERED: PROVENTIL NEB TX 0.083% 2.5MG/ 3ML NEB SCH (06:00)
[2023-10-21] MEDS: PROVENTIL NEB TX 0.083% 2.5MG/ 3ML ONE (07:47)
[2023-10-21] MEDS ORDERED: VOLTAREN 1 % GEL MULTI DOSE TUBE TOP PRN (09:22)
[2023-10-21] MEDS ORDERED: MICRO K EXTEN CAP 10 MEQ PO PRN (09:22)
[2023-10-21] MEDS: PULMICORT NEB TX 0.5 MG NEB SCH (09:32)
[2023-10-21] MEDS ORDERED: PHARMACY CONSULT - IVERMECTIN XX SCH (10:00)
[2023-10-21] MEDS: TRESIBA U-100 INSULIN SC SCH (10:39)
[2023-10-21] MEDS: IVERMECTIN PO NR (10:39)
[2023-10-21] MEDS: LOPRESSOR TAB 25 MG PO SCH (10:40)
[2023-10-21] MEDS: NexIUM PO SCH (10:40)
[2023-10-21] MEDS: NORVASC TAB 5 MG PO SCH (10:40)
[2023-10-21] MEDS: DECADRON TAB PO SCH (10:40)
[2023-10-21] MEDS: PAXIL PO SCH (10:40)
[2023-10-21] MEDS: FARXIGA PO SCH (10:40)
[2023-10-21] MEDS: ELIQUIS PO SCH (10:40)
[2023-10-21] MEDS: COZAAR PO SCH (10:40)
[2023-10-21] MEDS: SYNTHROID 50 mcg TAB PO SCH (10:40)
[2023-10-21] MEDS: REGLAN TAB 5 MG PO SCH (10:40)
[2023-10-21] MEDS: NEURONTIN TAB 600 MG PO SCH (10:40)
[2023-10-21] MEDS: MAGNESIUM SULFATE 1 GRAM/100 mL PREMIX 1 G/100 ML BAG IV SCH (10:41)
[2023-10-21] MEDS: TRICOR TAB 160 MG PO SCH (11:31)
[2023-10-21] MEDS: LASIX IVP SCH (11:31)
[2023-10-21] MEDS: K-DUR TAB 20 MEQ PO SCH (11:31)
[2023-10-21] MEDS: NovoLIN R (or HumuLIN R) SC PRN (11:53)
[2023-10-21] MEDS ORDERED: PROVENTIL NEB TX 0.083% 2.5MG/ 3ML IN SCH (13:00)
[2023-10-21] MEDS: XOPENEX 1.25 MG/3 ML NEBULE NEB SCH (13:09)
[2023-10-21] MEDS: LIPITOR TAB 20 MG PO SCH (20:24)
[2023-10-21] MEDS: REQUIP PO SCH (20:24)
[2023-10-21] MEDS: KLONOPIN TAB 1 MG PO SCH (20:25)
[2023-10-21] MEDS: SINGULAIR TAB 10 MG PO SCH (20:25)
[2023-10-21] MEDS: ARICEPT TAB 10 MG PO SCH (20:25)
[2023-10-21] MEDS: LASIX PO PRN (20:25)
[2023-10-21] MEDS: RHINOCORT ALLERGY NASAL SPRAY ENOSTRIL SCH (20:50)
[2023-10-21] MEDS: TYLENOL 325 MG TAB PO PRN (20:54)
[2023-10-21] MEDS ORDERED: REQUIP PO SCH (21:00)
[2023-10-21] MEDS ORDERED: ZANAFLEX PO SCH (21:00)
[2023-10-22 05:17] LABS: BASOPHILS % (AUTO) 0.5 % (0.2-1.0); EOSINOPHILS % (AUTO) 0.5 % (0.9-2.9); HEMATOCRIT 37.9 % (36.0-47.0); HEMOGLOBIN 12.3 g/dL (12.0-16.0); LYMPHOCYTES # (AUTO) 0.7 X10^3/uL (1.3-2.9); LYMPHOCYTES % (AUTO) 16.8 % (21.0-51.0); MEAN CORPUSCULAR HEMOGLOBIN 27.7 pg (27.0-34.0); MEAN CORPUSCULAR HGB CONC 32.5 g/dL (33.0-35.0); MEAN CORPUSCULAR VOLUME 85.3 fL (80.0-100.0); MEAN PLATELET VOLUME 8.9 fL (7.4-11.0); MONOCYTES # (AUTO) 0.5 x10^3/uL (0.3-0.8); MONOCYTES % (AUTO) 10.9 % (0.0-13.0); NEUTROPHILS # (AUTO) 3.2 x10^3/uL (2.2-4.8); NEUTROPHILS % (AUTO) 71.3 % (42.0-75.0); PLATELET COUNT 138 X10^3/uL (150.0-450.0); RED BLOOD COUNT 4.45 X10^6/uL (3.5-5.4); RED CELL DISTRIBUTION WIDTH 14.3 % (11.6-16.5); WHITE BLOOD COUNT 4.4 X10^3/uL (3.6-10.0)
[2023-10-22 05:24] LABS: ALBUMIN 2.8 g/dL (3.4-5.0); CALCIUM 8.9 mg/dL (8.5-10.1); CARBON DIOXIDE 40.1 mmol/L (21-32); COR CA(FOR HYPOALB) 9.9 mg/dL (8.5-10.1); CREATININE 1.17 mg/dL (0.55-1.02); MAGNESIUM 1.8 mg/dL (2.0-2.9); POTASSIUM 3.5 mmol/L (3.5-5.1); TOTAL PROTEIN 6.2 g/dL (6.4-8.2)
[2023-10-22] MEDS ORDERED: CONSULT PHARMACY - POTASSIUM & MAGNESIUM XX SCH (07:00)
[2023-10-22 08:57] VITALS: TEMP 97.7
[2023-10-22] MEDS: K-DUR TAB 20 MEQ PO SCH (10:12)
[2023-10-22] MEDS: NEURONTIN CAP 400 MG PO SCH (10:12)
[2023-10-22] MEDS: MAG-OX TAB PO SCH ×2 (10:13)
[2023-10-22] MEDS: VITAMIN D3 125 mcg (5,000 UNITS) PO SCH (10:13)
[2023-10-22 13:23] VITALS: BP 216/93; PULSE 66; RESP 30; O2SAT 96
== END 2023-10-22 14:05 | disposition home or self-care (01) ==
LOC: SUPCPDRO → ER 01:19 → ICU 01:19
PROVIDERS: ADMIT Obstetrics & Gynecology Obstetrics; ATTEND Obstetrics & Gynecology Obstetrics
DX: E78.5 Hyperlipidemia, unspecified; R06.02 Shortness of breath; R07.89 Other chest pain; U07.1 COVID-19; I11.0 Hypertensive heart disease with heart failure; J44.9 Chronic obstructive pulmonary disease, unspecified; I50.9 Heart failure, unspecified; K21.9 Gastro-esophageal reflux disease without esophagitis; E83.42 Hypomagnesemia; I48.91 Unspecified atrial fibrillation; E11.65 Type 2 diabetes mellitus with hyperglycemia; E03.8 Other specified hypothyroidism; Z99.81 Dependence on supplemental oxygen; F41.8 Other specified anxiety disorders; R94.31 Abnormal electrocardiogram [ECG] [EKG]

== ENCOUNTER 2023-11-14 22:19 | Inpatient (IN) ==
--- NOTE | 2023-11-14 22:45 | DR.CP ---
HPI Time Seen Time Seen by Provider: 11/14/23 22:43 PCP Primary Care Physician: Complaint Chief Complaint:: pt c/o chest pain, left shoulder pain, nausea and shortness of breathe. Source History Provided: Patient Timing Onset of Chief Complaint: 11/13/23 PMH PMH Past Medical History: Yes Past Medical History: Anxiety, CHF, COPD, Depression, Diabetes, Dyslipidemia, GERD, Hypertension, Hypothyroidism and Sleep Apnea Past Surgical History: Yes Surgical History: Cholecystectomy and Hysterectomy Family History History of Family Medical Conditions: Yes Family Medical History: ND and Hypertension Social History Alcohol Use: None Do you use any recreational Drugs:: No Lives With: Family Lives Where: Home Infectious screening Have you traveled outside the country in the last 6 months?: No Isolation: Standard PE Vitals Vitals: Vital Signs Temperature 97.9 F Pulse Rate 54 Pulse Rate 58 Pulse Rate 57 Pulse Rate 62 Pulse Rate 55 Pulse Rate 56 Pulse Rate 53 Pulse Rate 58 Pulse Rate 56 Pulse Rate 55 Pulse Rate 55 Pulse Rate 56 Pulse Rate 58 Pulse Rate 58 Pulse Rate 58 Pulse Rate 62 Pulse Rate 64 Pulse Rate 79 Pulse Rate 85 Pulse Rate 88 Pulse Rate 92 Pulse Rate 81 Pulse Rate 79 Pulse Rate 81 Pulse Rate 75 Pulse Rate 72 Pulse Rate 71 Pulse Rate 69 Pulse Rate 69 Pulse Rate 69 Pulse Rate 68 Pulse Rate 65 Pulse Rate 63 Pulse Rate 64 Pulse Rate 66 Pulse Rate 67 Respiratory Rate 20 Respiratory Rate 20 Respiratory Rate 20 Respiratory Rate 20 Respiratory Rate 25 Respiratory Rate 25 Respiratory Rate 0 Respiratory Rate 0 Respiratory Rate 0 Respiratory Rate 0 Respiratory Rate 0 Respiratory Rate 22 Respiratory Rate 22 Respiratory Rate 21 Respiratory Rate 38 Respiratory Rate 46 Respiratory Rate 34 Respiratory Rate 45 Respiratory Rate 45 Respiratory Rate 45 Respiratory Rate 38 Respiratory Rate 39 Respiratory Rate 39 Respiratory Rate 36 Respiratory Rate 46 Respiratory Rate 46 Respiratory Rate 39 Respiratory Rate 40 Respiratory Rate 37 Respiratory Rate 37 Respiratory Rate 24 Blood Pressure 144/65 Blood Pressure 136/66 Blood Pressure 134/59 Blood Pressure 145/82 Blood Pressure 131/59 Blood Pressure 142/72 Blood Pressure 134/65 Blood Pressure 127/65 Blood Pressure 126/63 Blood Pressure 128/61 Blood Pressure 128/61 Blood Pressure 130/62 Blood Pressure 137/62 Blood Pressure 127/60 Blood Pressure 127/61 Blood Pressure 188/83 Blood Pressure 194/89 Blood Pressure 173/107 Blood Pressure 235/121 Blood Pressure 229/103 Blood Pressure 211/100 Blood Pressure 199/95 Blood Pressure 192/88 Blood Pressure 189/87 Blood Pressure 180/84 Blood Pressure 181/83 Blood Pressure 132/73 O2 Sat by Pulse Oximetry 98 O2 Sat by Pulse Oximetry 97 O2 Sat by Pulse Oximetry 97 O2 Sat by Pulse Oximetry 96 O2 Sat by Pulse Oximetry 97 O2 Sat by Pulse Oximetry 98 O2 Sat by Pulse Oximetry 96 O2 Sat by Pulse Oximetry 96 O2 Sat by Pulse Oximetry 96 O2 Sat by Pulse Oximetry 96 O2 Sat by Pulse Oximetry 95 O2 Sat by Pulse Oximetry 94 O2 Sat by Pulse Oximetry 94 O2 Sat by Pulse Oximetry 94 O2 Sat by Pulse Oximetry 94 O2 Sat by Pulse Oximetry 90 O2 Sat by Pulse Oximetry 90 O2 Sat by Pulse Oximetry 80 O2 Sat by Pulse Oximetry 73 O2 Sat by Pulse Oximetry 73 O2 Sat by Pulse Oximetry 74 O2 Sat by Pulse Oximetry 89 O2 Sat by Pulse Oximetry 89 O2 Sat by Pulse Oximetry 89 O2 Sat by Pulse Oximetry 92 O2 Sat by Pulse Oximetry 93 O2 Sat by Pulse Oximetry 93 O2 Sat by Pulse Oximetry 95 O2 Sat by Pulse Oximetry 94 O2 Sat by Pulse Oximetry 95 O2 Sat by Pulse Oximetry 94 O2 Sat by Pulse Oximetry 96 O2 Sat by Pulse Oximetry 96 O2 Sat by Pulse Oximetry 97 O2 Sat by Pulse Oximetry 67 O2 Sat by Pulse Oximetry 69 [facility] Labs Reviewed 11/14/23 23:08 11/14/23 23:35 Laboratory: WBC 5.9 X10^3/uL (3.6-10.0) 11/14/23 23:08 RBC 4.79 X10^6/uL (3.5-5.4) 11/14/23 23:08 Hgb 13.4 g/dL (12.0-16.0) 11/14/23 23:08 Hct 40.4 % (36.0-47.0) 11/14/23 23:08 MCV 84.3 fL (80.0-100.0) 11/14/23 23:08 MCH 27.9 pg (27.0-34.0) 11/14/23 23:08 MCHC 33.1 g/dL (33.0-35.0) 11/14/23 23:08 RDW 15.0 % (11.6-16.5) 11/14/23 23:08 Plt Count 156 X10^3/uL (150.0-450.0) 11/14/23 23:08 MPV 9.0 fL (7.4-11.0) 11/14/23 23:08 Neut % (Auto) 67.1 % (42.0-75.0) 11/14/23 23:08 Lymph % (Auto) 21.7 % (21.0-51.0) 11/14/23 23:08 [place] % (Auto) 7.4 % (0.0-13.0) 11/14/23 23:08 Eos % (Auto) 2.9 % (0.9-2.9) 11/14/23 23:08 Baso % (Auto) 0.9 % (0.2-1.0) 11/14/23 23:08 Neut # (Auto) 3.9 x10^3/uL (2.2-4.8) 11/14/23 23:08 Lymph # (Auto) 1.3 X10^3/uL (1.3-2.9) 11/14/23 23:08 [place] # (Auto) 0.4 x10^3/uL (0.3-0.8) 11/14/23 23:08 Eos # (Auto) 0.2 x10^3/uL (0.0-0.2) 11/14/23 23:08 Baso # (Auto) 0.1 X10^3/uL (0.0-0.1) 11/14/23 23:08 Absolute Nucleated RBC 0.1 /100WBC 11/14/23 23:08 PT 15.2 SECONDS (11.8-14.3) 11/14/23 23:08 INR Target Range - 11/14/23 23:08 INR 1.23 (0.8-1.3) 11/14/23 23:08 APTT 31.6 SECONDS (22.9-36.5) 11/14/23 23:08 PTT Comment - 11/14/23 23:08 Sample Site R rad 11/15/23 03:13 ABG pH 7.320 (7.35-7.45) L 11/15/23 03:13 ABG pCO2 75.0 mmHg (35.0-45.0) H* 11/15/23 03:13 ABG pO2 80.0 mmHg (80.0-100.0) 11/15/23 03:13 ABG HCO3 38.6 mmol/L (22-26) H* 11/15/23 03:13 ABG O2 Saturation 95.0 % (90-100) 11/15/23 03:13 ABG Base Excess 9.7 mmol/L (-2.0-2.0) H 11/15/23 03:13 [place] Test Pos 11/15/23 03:13 A-a Gradient 147.0 mmHg 11/15/23 03:13 FiO2 45.0 11/15/23 03:13 Blood Gas Comments Yahir well food tester 11/15/23 03:13 Sodium 144 mmol/L (136-145) 11/14/23 23:35 Corrected Sodium 145 mmol/L (136-145) 11/14/23 23:35 Potassium 4.0 mmol/L (3.5-5.1) 11/14/23 23:35 Chloride 104 mmol/L (98-107) 11/14/23 23:35 Carbon Dioxide 35.0 mmol/L (21-32) H 11/14/23 23:35 BUN 19 mg/dL (7-18) H 11/14/23 23:35 Creatinine 0.77 mg/dL (0.55-1.02) 11/14/23 23:35 Est GFR (MDRD) Af Amer > 60 (>60) 11/14/23 23:35 Est GFR (MDRD) Non-Af > 60 (>60) 11/14/23 23:35 Glucose 156 mg/dL (65-99) H 11/14/23 23:35 Lactic Acid 0.7 mmol/L (0.4-2.0) 11/15/23 01:30 Calcium 9.3 mg/dL (8.5-10.1) 11/14/23 23:35 Corrected Calcium 10.2 mg/dL (8.5-10.1) H 11/14/23 23:35 Total Bilirubin 0.70 mg/dL (0.2-1.0) 11/14/23 23:35 AST 39 Units/L (15-37) H 11/14/23 23:35 ALT 39 Units/L (12-78) 11/14/23 23:35 Alkaline Phosphatase 176 Units/L (46-116) H 07/13/24 23:35 Creatine Kinase 81 Units/L (26-192) 11/15/23 01:30 Troponin I High Sens 18.7 ng/L (4.0-60.0) 11/15/23 01:30 B-Natriuretic Peptide 372 pg/mL (0-79) H 11/14/23 23:35 Total Protein 6.8 g/dL (6.4-8.2) 11/14/23 23:35 Albumin 2.9 g/dL (3.4-5.0) L 11/14/23 23:35 Globulin 3.9 g/dL (2.5-4.5) 11/14/23 23:35 Albumin/Globulin Ratio 0.7 Ratio (1.1-2.1) L 11/14/23 23:35 Opioid Opioid Risk Tool Age (Jesse box if 16-45): No History of Preadolescent Sexual Abuse: No Total: 0 Total Score Risk Category: Low Risk Copyright: Sagar WISDOM predicting aberrant behaviors Discharge Plan Diagnosis Discharge Problem: Pleural effusion on right, Pneumonia, Chest pain, COPD exacerbation, SOB (shortness of breath) Discharge Plan Patient Disposition: 09 ADMITTED INPATIENT Condition: Stable Orders to Discharge Patient Discharge Orders: Transfer (Routine); Ordered 11/15/23 Ordered By: ANGEL ADAMS
--- NOTE | 2023-11-14 22:51 | EKG ---
Test Reason : cp Blood Pressure : */* mmHG Vent. Rate : 65 BPM Atrial Rate : 65 BPM P-R Int : 154 ms QRS Dur : 74 ms QT Int : 420 ms P-R-T Axes : 74 51 45 degrees QTc Int : 436 ms Normal sinus rhythm Nonspecific T wave abnormality When compared with ECG of 21-OCT-2023 01:36, Nonspecific T wave abnormality no longer evident in Anterior leads Confirmed by Sudeep Harmon MD ([id number]) on 11/16/2023 7:42:21 AM Referred By: Confirmed By: Sudeep Harmon MD
[2023-11-14 23:06] LABS: ABG BASE EXCESS 9.4 mmol/L (-2.0-2.0)
[2023-11-14 23:08] LABS: ABG ALLEN TEST POS
[2023-11-14 23:15] LABS: BASOPHILS # (AUTO) 0.1 X10^3/uL (0.0-0.1); BASOPHILS % (AUTO) 0.9 % (0.2-1.0); EOSINOPHILS # (AUTO) 0.2 x10^3/uL (0.0-0.2); EOSINOPHILS % (AUTO) 2.9 % (0.9-2.9); HEMATOCRIT 40.4 % (36.0-47.0); HEMOGLOBIN 13.4 g/dL (12.0-16.0); LYMPHOCYTES # (AUTO) 1.3 X10^3/uL (1.3-2.9); LYMPHOCYTES % (AUTO) 21.7 % (21.0-51.0); MEAN CORPUSCULAR HEMOGLOBIN 27.9 pg (27.0-34.0); MEAN CORPUSCULAR HGB CONC 33.1 g/dL (33.0-35.0); MEAN CORPUSCULAR VOLUME 84.3 fL (80.0-100.0); MONOCYTES # (AUTO) 0.4 x10^3/uL (0.3-0.8); MONOCYTES % (AUTO) 7.4 % (0.0-13.0); NEUTROPHILS # (AUTO) 3.9 x10^3/uL (2.2-4.8); NEUTROPHILS % (AUTO) 67.1 % (42.0-75.0); PLATELET COUNT 156 X10^3/uL (150.0-450.0); RED BLOOD COUNT 4.79 X10^6/uL (3.5-5.4); WHITE BLOOD COUNT 5.9 X10^3/uL (3.6-10.0)
[2023-11-14 23:24] LABS: INR 1.23 (0.8-1.3)
[2023-11-14 23:34] LABS: eGFR NON BLACK RACES > 60 (>60)
[2023-11-14] MEDS: LASIX IVP ONE (23:44)
[2023-11-14] MEDS: SOLU-Medrol 125 MG VIAL IVP ONE (23:44)
[2023-11-14] MEDS: DUONEB 0.5 MG/3 MG (3 mL) NEB ONE (23:53)
[2023-11-14 23:58] LABS: ALANINE AMINOTRANSFERASE 39 Units/L (12-78); ALBUMIN 2.9 g/dL (3.4-5.0); ALKALINE PHOSPHATASE 176 Units/L (46-116); ASPARTATE AMINO TRANSFERASE 39 Units/L (15-37); BLOOD UREA NITROGEN 19 mg/dL (7-18); CALCIUM 9.3 mg/dL (8.5-10.1); CHLORIDE 104 mmol/L (98-107); COR CA(FOR HYPOALB) 10.2 mg/dL (8.5-10.1); COR NA(FOR HYPERGLY) 145 mmol/L (136-145); CREATINE KINASE 83 Units/L (26-192); CREATININE 0.77 mg/dL (0.55-1.02); GLUCOSE 156 mg/dL (65-99); SODIUM 144 mmol/L (136-145); TOTAL PROTEIN 6.8 g/dL (6.4-8.2)
--- NOTE | 2023-11-15 01:13 | RAD ---
EXAM: FRONTAL VIEW CHEST X-RAY HISTORY: Chest pain COMPARISON: None. FINDINGS: Progressive worsening of a right-sided pleural effusion is seen now moderate in size with associated right lower lung zone airspace disease. Improved aeration of the left lower lobe is noted. Stable c ardiomegaly is noted. The mediastinum is unremarkable. There is no gross evidence of a pneumothorax. The trachea is midline. IMPRESSION: 1. Progressive worsening of a right-sided pleural effusion is seen now moderate in size with associat ed right lower lung zone airspace disease. 2. Improved aeration of the left lower lobe is noted. 3. Stable cardiomegaly is noted. THIS IS AN ELECTRONICALLY VERIFIED FINAL REPORT 11/15/2023 1:09 AM - Electronically signed by Ever Zavala MD
--- NOTE | 2023-11-15 03:17 | EKG ---
Test Reason : SOB, Chest pain Blood Pressure : */* mmHG Vent. Rate : 54 BPM Atrial Rate : 54 BPM P-R Int : 136 ms QRS Dur : 74 ms QT Int : 466 ms P-R-T Axes : 60 12 -22 degrees QTc Int : 441 ms Sinus bradycardia with sinus arrhythmia Nonspecific T wave abnormality Abnormal ECG When compared with ECG of 14-NOV-2023 22:47, (Unconfirmed) Nonspecific T wave abnormality, worse in Lateral leads Confirmed by Sudeep Harmon MD ([id number]) on 11/16/2023 7:41:27 AM Referred By: Confirmed By: Sudeep Harmon MD
[2023-11-15 03:19] LABS: ABG BASE EXCESS 9.7 mmol/L (-2.0-2.0)
[2023-11-15 03:20] LABS: ABG ALLEN TEST POS; ABG HCO3 38.6 mmol/L (22-26)
[2023-11-15] MEDS: ZOSYN VIAL 3.375 GRAMS 3.375 G in NS 100 ML IV 100 ML IV ONE (04:26)
[2023-11-15] MEDS ORDERED: NS 250 ML IV 25 ML IV PRN (05:01)
[2023-11-15 05:12] LABS: ABG BASE EXCESS 10.7 mmol/L (-2.0-2.0)
[2023-11-15 05:14] LABS: ABG ALLEN TEST POS; ABG HCO3 37.8 mmol/L (22-26)
[2023-11-15] MEDS ORDERED: NITROGLYCERIN IV PREMIX 50 MG 50 MG/250 ML BAG IV PRN (05:42)
[2023-11-15 06:00] VITALS: BMI 30.8
[2023-11-15] MEDS: ZOSYN VIAL 3.375 GRAMS 3.375 G in NS 100 ML IV 100 ML IV SCH (06:07)
[2023-11-15] MEDS: XOPENEX 1.25 MG/3 ML NEBULE NEB SCH (10:15)
[2023-11-15] MEDS: PULMICORT NEB TX 0.5 MG NEB SCH (10:16)
[2023-11-15 10:23] LABS: BILIRUBIN,URINE NEGATIVE (NEGATIVE); BLOOD/HEMOGLOBIN,URINE 3+ (NEGATIVE); GLUCOSE, URINE 4+ (NEGATIVE); KETONES,URINE NEGATIVE (NEGATIVE); LEUKOCYTE ESTERASE ,URINE NEGATIVE (NEGATIVE); NITRITES,URINE NEGATIVE (NEGATIVE); PROTEIN,URINE 3+ (NEGATIVE); UROBILINOGEN,URINE NORMAL (NORMAL)
[2023-11-15 10:35] LABS: APPEARANCE,URINE CLEAR (CLEAR); BACTERIA,URINE 1+ /HPF (NEGATIVE); COLOR,URINE YELLOW (YELLOW); RBC,URINE 0-2 /HPF (0-3); SQUAMOUS EPITHELIAL CELL,UR FEW /HPF (NEGATIVE)
--- NOTE | 2023-11-15 10:45 | DR.H&P ---
H&P History & Physical for Day of: H&P Date: 11/15/23 Chief Complaint Chief Complaint: Shortness of breath History of Present Illness History of Present Illness: Patient is a 73-year-old female with a past medical history of COPD, CHF, diabetes, hypertension, hypothyroidism presenting with worsening shortness of breath for the past few days. She also reports having some chest pains as well. Denies fevers, chills. Labs/imaging: WBC 5.9, hemoglobin 13.4, platelets 156, sodium 144, potassium 4.0, creatinine 0.77, glucose 156, troponin negative x 2, BNP 372, respiratory panel pending, blood cultures pending, ABG: pH 7.4, pCO2 61, pO2 72, HCO3 37, O2 sat 94% on FiO2 32%. Chest x-ray was obtained that revealed: 1. Progressive worsening of a right- sided pleural effusion is seen now moderate in size with associated right lower lung zone airspace disease. 2. Improved aeration of the left lower lobe is noted. 3. Stable cardiomegaly is noted. Patient was admitted for acute respiratory failure and hypercapnia, COPD exacerbation, and CHF exacerbation. She is currently doing well on the BiPAP at this time. Will repeat ABG at 4 PM. Chest pain ruled out negative troponins. Will restart home medications. Otherwise we will continue to closely monitor and follow-up labs/imaging. Time spent for clinical assessment, reviewing labs/imaging, physical exam, decision making and documentation greater than 45 mins. Past Medical History Past Medical History: Anxiety, CHF, COPD, Depression, Diabetes, Dyslipidemia, GERD, Hypertension, Hypothyroidism and Sleep Apnea Past Surgical History Surgical History: Abdominal Surgery, Cholecystectomy and Hysterectomy Family History Family Medical History: IA and Hypertension Social History Does patient currently use any type of tobacco product: No Have you used tobacco products in the last 12 months: No Type of Tobacco Use: None Does any household member use tobacco: No Alcohol Use: None Drug Use: None Medications Home Medications: Home Medications Medication Instructions Recorded Confirmed Type esomeprazole magnesium 40 mg 40 mg PO QAM 07/08/23 11/15/23 History capsule,delayed release apixaban 5 mg tablet (Eliquis) 5 mg PO BID 08/10/23 11/15/23 History atorvastatin 20 mg tablet 20 mg PO QHS 08/10/23 11/15/23 History dapagliflozin propanediol 10 mg 10 mg PO QAM 08/10/23 11/15/23 History tablet (Farxiga) donepezil 10 mg tablet 10 mg PO QHS 08/10/23 11/15/23 History levothyroxine 50 mcg tablet 50 mcg PO QAM 08/10/23 11/15/23 History (Synthroid) paroxetine HCl 20 mg tablet 20 mg PO QAM 08/10/23 11/15/23 History clonazepam 1 mg tablet 1 mg PO QHS 08/25/23 11/15/23 History montelukast 10 mg tablet 10 mg PO QHS 09/08/23 11/15/23 History amlodipine 5 mg tablet 5 mg PO BID 10/21/23 11/15/23 History cholecalciferol (vitamin D3) 125 125 mcg PO QAM 10/21/23 11/15/23 History mcg (5,000 unit) tablet (Vitamin D3) losartan 50 mg tablet 50 mg PO BID 10/21/23 11/15/23 History magnesium oxide 300 mg PO QAM 10/21/23 11/15/23 History metoclopramide HCl 5 mg tablet 5 mg PO TID 10/21/23 11/15/23 History metoprolol tartrate 25 mg tablet 25 mg PO BID 10/21/23 11/15/23 History potassium chloride 10 mEq 10 meq PO QDAY PRN 10/21/23 11/15/23 History tablet,extended release budesonide 0.5 mg/2 mL suspension 0.5 mg NEB BID PRN 11/15/23 11/15/23 History for nebulization fluconazole 200 mg tablet 200 mg PO Q OTHER DAY 11/15/23 11/15/23 History gabapentin 400 mg capsule 400 mg PO BID 11/15/23 11/15/23 History pantoprazole 40 mg tablet,delayed 40 mg PO QDAY 11/15/23 11/15/23 History release ropinirole 1 mg tablet 1 mg PO QAM 11/15/23 11/15/23 History ropinirole 1 mg tablet 2 mg PO QHS 11/15/23 11/15/23 History Allergies Allergies Allergy/AdvReac Type Severity Reaction Status Date / Time codeine Allergy Verified 09/08/23 14:29 Labs 11/14/23 23:08 11/14/23 23:35 Labs: Laboratory WBC 5.9 X10^3/uL (3.6-10.0) 11/14/23 23:08 RBC 4.79 X10^6/uL (3.5-5.4) 11/14/23 23:08 Hgb 13.4 g/dL (12.0-16.0) 11/14/23 23:08 Hct 40.4 % (36.0-47.0) 11/14/23 23:08 MCV 84.3 fL (80.0-100.0) 11/14/23 23:08 MCH 27.9 pg (27.0-34.0) 11/14/23 23:08 MCHC 33.1 g/dL (33.0-35.0) 11/14/23 23:08 RDW 15.0 % (11.6-16.5) 11/14/23 23:08 Plt Count 156 X10^3/uL (150.0-450.0) 11/14/23 23:08 MPV 9.0 fL (7.4-11.0) 11/14/23 23:08 Neut % (Auto) 67.1 % (42.0-75.0) 11/14/23 23:08 Lymph % (Auto) 21.7 % (21.0-51.0) 11/14/23 23:08 [place] % (Auto) 7.4 % (0.0-13.0) 11/14/23 23:08 Eos % (Auto) 2.9 % (0.9-2.9) 11/14/23 23:08 Baso % (Auto) 0.9 % (0.2-1.0) 11/14/23 23:08 Neut # (Auto) 3.9 x10^3/uL (2.2-4.8) 11/14/23 23:08 Lymph # (Auto) 1.3 X10^3/uL (1.3-2.9) 11/14/23 23:08 [place] # (Auto) 0.4 x10^3/uL (0.3-0.8) 11/14/23 23:08 Eos # (Auto) 0.2 x10^3/uL (0.0-0.2) 11/14/23 23:08 Baso # (Auto) 0.1 X10^3/uL (0.0-0.1) 11/14/23 23:08 Absolute Nucleated RBC 0.1 /100WBC 11/14/23 23:08 PT 15.2 SECONDS (11.8-14.3) 11/14/23 23:08 INR Target Range - 11/14/23 23:08 INR 1.23 (0.8-1.3) 11/14/23 23:08 APTT 31.6 SECONDS (22.9-36.5) 11/14/23 23:08 PTT Comment - 11/14/23 23:08 Sample Site R rad 11/15/23 05:07 ABG pH 7.400 (7.35-7.45) 11/15/23 05:07 ABG pCO2 61.0 mmHg (35.0-45.0) H* 11/15/23 05:07 ABG pO2 72.0 mmHg (80.0-100.0) L 11/15/23 05:07 ABG HCO3 37.8 mmol/L (22-26) H* 11/15/23 05:07 ABG O2 Saturation 94.0 % (90-100) 11/15/23 05:07 ABG Base Excess 10.7 mmol/L (-2.0-2.0) H 11/15/23 05:07 [place] Test Pos 11/15/23 05:07 A-a Gradient 80.0 mmHg 11/15/23 05:07 FiO2 32.0 11/15/23 05:07 Blood Gas Comments Pt robyn well mf 11/15/23 05:07 Sodium 144 mmol/L (136-145) 11/14/23 23:35 Corrected Sodium 145 mmol/L (136-145) 11/14/23 23:35 Potassium 4.0 mmol/L (3.5-5.1) 11/14/23 23:35 Chloride 104 mmol/L (98-107) 11/14/23 23:35 Carbon Dioxide 35.0 mmol/L (21-32) H 11/14/23 23:35 BUN 19 mg/dL (7-18) H 11/14/23 23:35 Creatinine 0.77 mg/dL (0.55-1.02) 11/14/23 23:35 Est GFR (MDRD) Af Amer > 60 (>60) 11/14/23 23:35 Est GFR (MDRD) Non-Af > 60 (>60) 11/14/23 23:35 Glucose 156 mg/dL (65-99) H 11/14/23 23:35 Lactic Acid 0.7 mmol/L (0.4-2.0) 11/15/23 01:30 Calcium 9.3 mg/dL (8.5-10.1) 11/14/23 23:35 Corrected Calcium 10.2 mg/dL (8.5-10.1) H 11/14/23 23:35 Total Bilirubin 0.70 mg/dL (0.2-1.0) 11/14/23 23:35 AST 39 Units/L (15-37) H 11/14/23 23:35 ALT 39 Units/L (12-78) 11/14/23 23:35 Alkaline Phosphatase 176 Units/L (46-116) H 11/14/23 23:35 Creatine Kinase 81 Units/L (26-192) 11/15/23 01:30 Troponin I High Sens 18.7 ng/L (4.0-60.0) 11/15/23 01:30 B-Natriuretic Peptide 372 pg/mL (0-79) H 11/14/23 23:35 Total Protein 6.8 g/dL (6.4-8.2) 11/14/23 23:35 Albumin 2.9 g/dL (3.4-5.0) L 11/14/23 23:35 Globulin 3.9 g/dL (2.5-4.5) 11/14/23 23:35 Albumin/Globulin Ratio 0.7 Ratio (1.1-2.1) L 11/14/23 23:35 Review of Systems Constitutional: Weakness; denies Fever or Chills Eyes: No Symptoms Reported ENT: No Symptoms Reported Respiratory: Cough and Shortness of Breath Cardiovascular: Chest Pain Gastrointestinal: No Symptoms Reported Genitourinary: No Symptoms Reported Musculoskeletal: No Symptoms Reported Skin: No Symptoms Reported Neurological: No Symptoms Reported Physical Exam Vital Signs: Vital Signs Temperature 97.8 F Temperature 97.9 F Pulse Rate [Apical] 59 Pulse Rate 63 Pulse Rate 61 Pulse Rate 63 Pulse Rate 63 Pulse Rate 63 Pulse Rate 68 Pulse Rate 59 Pulse Rate 58 Pulse Rate 54 Pulse Rate 58 Pulse Rate 57 Pulse Rate 62 Pulse Rate 55 Pulse Rate 56 Pulse Rate 53 Pulse Rate 58 Pulse Rate 56 Respiratory Rate 22 Respiratory Rate 19 Respiratory Rate 20 Respiratory Rate 21 Respiratory Rate 21 Respiratory Rate 23 Respiratory Rate 20 Respiratory Rate 20 Respiratory Rate 20 Respiratory Rate 20 Respiratory Rate 20 Respiratory Rate 20 Respiratory Rate 20 Respiratory Rate 25 Respiratory Rate 25 Respiratory Rate 0 Respiratory Rate 0 Respiratory Rate 0 Blood Pressure [Left Arm] 123/60 Blood Pressure 169/79 Blood Pressure 168/74 Blood Pressure 162/76 Blood Pressure 170/79 Blood Pressure 170/79 Blood Pressure 172/77 Blood Pressure 123/60 Blood Pressure 124/60 Blood Pressure 144/65 Blood Pressure 136/66 Blood Pressure 134/59 Blood Pressure 145/82 Blood Pressure 131/59 Blood Pressure 142/72 Blood Pressure 134/65 Blood Pressure 127/65 Blood Pressure 126/63 O2 Sat by Pulse Oximetry 99 O2 Sat by Pulse Oximetry 98 O2 Sat by Pulse Oximetry 97 O2 Sat by Pulse Oximetry 97 O2 Sat by Pulse Oximetry 97 O2 Sat by Pulse Oximetry 95 O2 Sat by Pulse Oximetry 97 O2 Sat by Pulse Oximetry 96 O2 Sat by Pulse Oximetry 97 O2 Sat by Pulse Oximetry 98 O2 Sat by Pulse Oximetry 97 O2 Sat by Pulse Oximetry 97 O2 Sat by Pulse Oximetry 96 O2 Sat by Pulse Oximetry 97 O2 Sat by Pulse Oximetry 98 O2 Sat by Pulse Oximetry 96 O2 Sat by Pulse Oximetry 96 O2 Sat by Pulse Oximetry 96 Oriented: Normal Eyes: Normal Ear: Normal Nose: Normal Throat: Normal Respiratory: Diminished Throughout Cardiovascular: Normal : Normal Auscultation: Bowel Sounds: Normal Palpation: Normal Tenderness: Normal Skin: Normal Musculoskeletal: Normal Psychiatric: Normal Mood Description: Calm and Appropriate Affect: Normal Speech Pattern: Clear and Appropriate Assessment/Plan (1) Acute respiratory failure: Status: Acute Plan: BiPAP repeat abg this afternoon (2) CHF exacerbation: Qualifiers: Heart failure type: unspecified Qualified Code(s): I50.9 - Heart failure, unspecified Status: Acute Plan: IV lasix BID (3) COPD exacerbation: Status: Acute Plan: Scheduled bronchodilators (4) Hypertension: Qualifiers: Hypertension type: primary hypertension Qualified Code(s): I10 - Essential (primary) hypertension Status: Acute (5) Diabetes mellitus, type 2: Qualifiers: Diabetes mellitus watermelon inspector insulin use: without half-way use Diabetes mellitus complication status: without complication Qualified Code(s): E11.9 - Type 2 diabetes mellitus without complications Status: Chronic (6) Hypothyroidism: Status: Chronic (7) A-fib: Status: Acute Review H&P Reviewed: Yes Patient was examined?: Yes
[2023-11-15] MEDS: COZAAR PO SCH (11:37)
[2023-11-15] MEDS: NORVASC TAB 5 MG PO SCH (11:37)
[2023-11-15] MEDS: LOPRESSOR TAB 25 MG PO SCH (11:37)
[2023-11-15] MEDS: NovoLIN R (or HumuLIN R) SUBCUT PRN (15:57)
[2023-11-15 15:58] LABS: ABG BASE EXCESS 8.8 mmol/L (-2.0-2.0)
[2023-11-15 15:59] LABS: ABG ALLEN TEST POS; ABG HCO3 32.7 mmol/L (22-26)
[2023-11-15] MEDS: TYLENOL 325 MG TAB PO PRN (16:40)
[2023-11-15] MEDS: LASIX IVP SCH (16:40)
[2023-11-15] MEDS: SNACK - Diabetic Appropriate PO SCH (19:58)
[2023-11-15] MEDS: KLONOPIN TAB 1 MG PO SCH (21:05)
[2023-11-15] MEDS: ELIQUIS PO SCH (21:06)
[2023-11-15] MEDS: ARICEPT TAB 10 MG PO SCH (21:06)
[2023-11-15] MEDS: REQUIP PO SCH (21:06)
[2023-11-15] MEDS: LIPITOR TAB 20 MG PO SCH (21:06)
[2023-11-16 05:20] LABS: BASOPHILS % (AUTO) 0.6 % (0.2-1.0); EOSINOPHILS % (AUTO) 0.4 % (0.9-2.9); HEMATOCRIT 34.1 % (36.0-47.0); LYMPHOCYTES # (AUTO) 1.1 X10^3/uL (1.3-2.9); LYMPHOCYTES % (AUTO) 22.2 % (21.0-51.0); MEAN CORPUSCULAR HEMOGLOBIN 27.8 pg (27.0-34.0); MEAN CORPUSCULAR VOLUME 84.3 fL (80.0-100.0); MEAN PLATELET VOLUME 9.1 fL (7.4-11.0); MONOCYTES # (AUTO) 0.4 x10^3/uL (0.3-0.8); MONOCYTES % (AUTO) 8.9 % (0.0-13.0); NEUTROPHILS # (AUTO) 3.2 x10^3/uL (2.2-4.8); NEUTROPHILS % (AUTO) 67.9 % (42.0-75.0); PLATELET COUNT 121 X10^3/uL (150.0-450.0); RED BLOOD COUNT 4.05 X10^6/uL (3.5-5.4); WHITE BLOOD COUNT 4.7 X10^3/uL (3.6-10.0)
[2023-11-16 05:29] LABS: INR 1.27 (0.8-1.3)
[2023-11-16 05:33] LABS: HEMOGLOBIN 11.3 g/dL (12.0-16.0)
[2023-11-16 05:38] LABS: ALBUMIN 2.3 g/dL (3.4-5.0); CALCIUM 8.8 mg/dL (8.5-10.1); CARBON DIOXIDE 35.8 mmol/L (21-32); CHOL/HDL RATIO 1.8 (0.0-5.0); COR CA(FOR HYPOALB) 10.2 mg/dL (8.5-10.1); CREATININE 1.35 mg/dL (0.55-1.02); MAGNESIUM 1.4 mg/dL (2.0-2.9); POTASSIUM 3.5 mmol/L (3.5-5.1); TOTAL PROTEIN 5.8 g/dL (6.4-8.2)
[2023-11-16] MEDS ORDERED: CONSULT PHARMACY - POTASSIUM & MAGNESIUM XX SCH (06:00)
--- NOTE | 2023-11-16 07:26 | RAD ---
EXAM:CHEST, 1 VIEWHISTORY:pleural effusion;COMPARISON:11/14/2023TECHNIQUE: One viewFINDINGS:Cardiomegaly is present. Slight decrease in bibasilar opacities. No pneumothorax, new infiltrate or other change noted. EKG leads and oxygen tubing project over the chest.IMPRESSION:Decrease in bibasilar opacities. Follow-up recommended.THIS IS AN ELECTRONICALLY VERIFIED FINAL REPORT11/16/2023 7:22 AM - Electronically signed by Curly Ocasio MD
[2023-11-16] MEDS: NexIUM PO SCH (08:29)
[2023-11-16] MEDS: REQUIP PO SCH (08:30)
[2023-11-16] MEDS: PAXIL PO SCH (08:30)
[2023-11-16] MEDS: SYNTHROID 50 mcg TAB PO SCH (08:30)
[2023-11-16] MEDS: K-DUR TAB 20 MEQ PO SCH (08:30)
[2023-11-16] MEDS: FARXIGA PO SCH (08:30)
[2023-11-16] MEDS: MAG-OX TAB PO SCH (08:31)
[2023-11-16] MEDS ORDERED: PATIENT'S HOME MEDICATION (Dapagliflozin Propanediol [Farxiga] 10 mg tablet) PO SCH (09:00)
--- NOTE | 2023-11-16 09:38 | PCM.PROG ---
Progress Note Progress Note for Day of Date of Exam: 11/16/23 Subjective Subjective: Patient seen at bedside, no acute events overnight. She states she is feeling slightly better. She is currently admitted for CHF exacerbation and pneumonia. Patient is on 3L NC, she uses 2L at home. She has been taking only 1/2 tab of lasix at home. She is currently on IV lasix BID and IV Zosyn. Labs/imaging reviewed: -Hgb 11.3 K:3.5 Ma.4 BUN/Cr: 36/1.35 -CXR: decrease in bilateral opacities Plan: Continue telemetry monitoring. Continue IV lasix, strict I&Os, daily weights, monitor UOP. Continue IV antibiotics, follow AIT panel. Continue nebs prn. Continue home medications. Replace K and Mag as per protocol. Wean O2 as tolerated. PT/OT as tolerated. Monitor AM labs/imaging. Past Medical Family Social History Allergies: Allergies codeine Allergy (Verified 09/08/23 14:29) Vital Signs and I&O's Vital Signs: Vital Signs Temperature 98.1 F Pulse Rate 68 Pulse Rate 70 Pulse Rate 61 Pulse Rate 62 Pulse Rate 60 Pulse Rate 60 Respiratory Rate 24 Respiratory Rate 20 Respiratory Rate 20 Respiratory Rate 20 Respiratory Rate 20 Blood Pressure 175/80 Blood Pressure 165/77 Blood Pressure 165/77 Blood Pressure 163/77 Blood Pressure 170/77 O2 Sat by Pulse Oximetry 100 O2 Sat by Pulse Oximetry 97 O2 Sat by Pulse Oximetry 100 O2 Sat by Pulse Oximetry 99 O2 Sat by Pulse Oximetry 96 O2 Sat by Pulse Oximetry 97 Intake and Output: Intake & Output 11/13/23 11/14/23 11/15/23 11/16/23 23:59 23:59 23:59 23:59 Intake Total 1060 / 1060 123 / 123 Output Total 800 / 800 Balance 260 / 260 123 / 123 Physical Exam Oriented: Normal Eyes: Normal Ear: Normal Nose: Normal Throat: Normal Respiratory: Generalized and Diminished Cardiovascular: Normal Auscultation: Bowel Sounds: Normal Palpation: Normal Tenderness: Normal Skin: Normal Musculoskeletal: Normal Psychiatric: Normal Mood Description: Calm and Appropriate Affect: Normal Speech Pattern: Clear and Appropriate Laboratory and Diagnostics 11/16/23 04:44 11/16/23 04:44 Labs: Laboratory WBC 4.7 X10^3/uL (3.6-10.0) 11/16/23 04:44 RBC 4.05 X10^6/uL (3.5-5.4) 11/16/23 04:44 Hgb 11.3 g/dL (12.0-16.0) L D 11/16/23 04:44 Hct 34.1 % (36.0-47.0) L 11/16/23 04:44 MCV 84.3 fL (80.0-100.0) 11/16/23 04:44 MCH 27.8 pg (27.0-34.0) 11/16/23 04:44 MCHC 33.0 g/dL (33.0-35.0) 11/16/23 04:44 RDW 15.0 % (11.6-16.5) 11/16/23 04:44 Plt Count 121 X10^3/uL (150.0-450.0) L 11/16/23 04:44 MPV 9.1 fL (7.4-11.0) 11/16/23 04:44 Neut % (Auto) 67.9 % (42.0-75.0) 11/16/23 04:44 Lymph % (Auto) 22.2 % (21.0-51.0) 11/16/23 04:44 [place] % (Auto) 8.9 % (0.0-13.0) 11/16/23 04:44 Eos % (Auto) 0.4 % (0.9-2.9) L 11/16/23 04:44 Baso % (Auto) 0.6 % (0.2-1.0) 11/16/23 04:44 Neut # (Auto) 3.2 x10^3/uL (2.2-4.8) 11/16/23 04:44 Lymph # (Auto) 1.1 X10^3/uL (1.3-2.9) L 11/16/23 04:44 [place] # (Auto) 0.4 x10^3/uL (0.3-0.8) 11/16/23 04:44 Eos # (Auto) 0.0 x10^3/uL (0.0-0.2) 11/16/23 04:44 Baso # (Auto) 0.0 X10^3/uL (0.0-0.1) 11/16/23 04:44 Absolute Nucleated RBC 0.1 /100WBC 11/16/23 04:44 PT 15.6 SECONDS (11.8-14.3) 11/16/23 04:44 INR Target Range - 11/16/23 04:44 INR 1.27 (0.8-1.3) 11/16/23 04:44 APTT 29.4 SECONDS (22.9-36.5) 11/16/23 04:44 PTT Comment - 11/16/23 04:44 Sample Site Rr 11/15/23 15:55 ABG pH 7.510 (7.35-7.45) H 11/15/23 15:55 ABG pCO2 41.0 mmHg (35.0-45.0) 11/15/23 15:55 ABG pO2 70.0 mmHg (80.0-100.0) L 11/15/23 15:55 ABG HCO3 32.7 mmol/L (22-26) H* 11/15/23 15:55 ABG O2 Saturation 95.0 % (90-100) 11/15/23 15:55 ABG Base Excess 8.8 mmol/L (-2.0-2.0) H 11/15/23 15:55 [place] Test Pos 11/15/23 15:55 A-a Gradient 78.0 mmHg 11/15/23 15:55 FiO2 28.0 11/15/23 15:55 Blood Gas Comments 2lnc. robyn well. 11/15/23 15:55 Sodium 141 mmol/L (136-145) 11/16/23 04:44 Corrected Sodium 143 mmol/L (136-145) 11/16/23 04:44 Potassium 3.5 mmol/L (3.5-5.1) 11/16/23 04:44 Chloride 101 mmol/L (98-107) 11/16/23 04:44 Carbon Dioxide 35.8 mmol/L (21-32) H 11/16/23 04:44 BUN 36 mg/dL (7-18) H 11/16/23 04:44 Creatinine 1.35 mg/dL (0.55-1.02) H 11/16/23 04:44 Est GFR (MDRD) Af Amer 50 (>60) L 11/16/23 04:44 Est GFR (MDRD) Non-Af 41 (>60) L 11/16/23 04:44 Glucose 164 mg/dL (65-99) H 11/16/23 04:44 POC Glucose (mg/dL) 141 mg/dL (65-99) H 11/16/23 05:20 Lactic Acid 0.7 mmol/L (0.4-2.0) 11/15/23 01:30 Calcium 8.8 mg/dL (8.5-10.1) 11/16/23 04:44 Corrected Calcium 10.2 mg/dL (8.5-10.1) H 11/16/23 04:44 Magnesium 1.4 mg/dL (2.0-2.9) L 11/16/23 04:44 Total Bilirubin 0.50 mg/dL (0.2-1.0) 11/16/23 04:44 AST 19 Units/L (15-37) 11/16/23 04:44 ALT 26 Units/L (12-78) 11/16/23 04:44 Alkaline Phosphatase 121 Units/L (46-116) H 11/16/23 04:44 Creatine Kinase 28 Units/L (26-192) 11/16/23 04:44 Troponin I High Sens 18.7 ng/L (4.0-60.0) 11/15/23 01:30 B-Natriuretic Peptide 372 pg/mL (0-79) H 11/14/23 23:35 Total Protein 5.8 g/dL (6.4-8.2) L 11/16/23 04:44 Albumin 2.3 g/dL (3.4-5.0) L 11/16/23 04:44 Globulin 3.5 g/dL (2.5-4.5) 11/16/23 04:44 Albumin/Globulin Ratio 0.7 Ratio (1.1-2.1) L 11/16/23 04:44 Triglycerides 81 mg/dL (0-150) 11/16/23 04:44 Cholesterol 118 mg/dL (0-200) 11/16/23 04:44 LDL Cholesterol, Calc 38 mg/dL (0-100) 11/16/23 04:44 HDL Cholesterol 64 mg/dL (40-60) H 11/16/23 04:44 Cholesterol/HDL Ratio 1.8 (0.0-5.0) 11/16/23 04:44 Specimen Type Clean catch urine 11/15/23 09:36 Urine Color Yellow (YELLOW) 11/15/23 09:36 Urine Appearance Clear (CLEAR) 11/15/23 09:36 Urine pH 5.0 (5.0 - 8.0) 11/15/23 09:36 Ur Specific [place] 1.020 (1.000-1.030) 11/15/23 09:36 Urine Protein 3+ (NEGATIVE) 11/15/23 09:36 Urine Glucose (UA) 4+ (NEGATIVE) 11/15/23 09:36 Urine Ketones Negative (NEGATIVE) 11/15/23 09:36 Urine Blood 3+ (NEGATIVE) 11/15/23 09:36 Urine Nitrite Negative (NEGATIVE) 11/15/23 09:36 Urine Bilirubin Negative (NEGATIVE) 11/15/23 09:36 Urine Urobilinogen Normal (NORMAL) 11/15/23 09:36 Ur Leukocyte Esterase Negative (NEGATIVE) 11/15/23 09:36 Urine RBC 0-2 /HPF (0-3) 11/15/23 09:36 Urine WBC 5-10 /HPF (0-5) A 11/15/23 09:36 Ur Squamous Epith Cells Few /HPF (NEGATIVE) 11/15/23 09:36 Amorphous Sediment Trace /HPF (NEGATIVE) 11/15/23 09:36 Urine Bacteria 1+ /HPF (NEGATIVE) 11/15/23 09:36 Ur Culture Indicated? No/not indicated 11/15/23 09:36 Plan (1) Acute respiratory failure: Status: Acute Qualifiers: Respiratory failure complication: hypoxia and hypercapnia Qualified Code(s): J96.01 - Acute respiratory failure with hypoxia; J96.02 - Acute respiratory failure with hypercapnia (2) CHF exacerbation: Status: Acute Qualifiers: Heart failure type: unspecified Qualified Code(s): I50.9 - Heart failure, unspecified Plan: IV lasix BID (3) COPD exacerbation: Status: Acute (4) Hypertension: Status: Acute Qualifiers: Hypertension type: primary hypertension Qualified Code(s): I10 - Essential (primary) hypertension (5) Diabetes mellitus, type 2: Status: Chronic Qualifiers: Diabetes mellitus fci insulin use: without salvage determiner use Diabetes mellitus complication status: without complication Qualified Code(s): E11.9 - Type 2 diabetes mellitus without complications (6) Hypothyroidism: Status: Chronic Qualifiers: Hypothyroidism type: acquired Qualified Code(s): E03.9 - Hypot hyroidism, unspecified (7) A-fib: Status: Acute Qualifiers: Atrial fibrillation type: unspecified chronic Qualified Code(s): I48.20 - Chronic atrial fibrillation, unspecified
[2023-11-16] MEDS: ZOFRAN TAB 4 MG SL ONE (11:58)
[2023-11-16] MEDS: ZOFRAN TAB 4 MG ONE (11:58)
[2023-11-16] MEDS: ZOFRAN INJ 4 MG VIAL ONE (11:59)
[2023-11-16] MEDS: ZOFRAN ODT SL ONE (12:25)
[2023-11-16] MEDS: APRESOLINE INJ 20 MG VIAL IVP ONE (13:50)
[2023-11-16] MEDS: MAG-OX TAB ONE (18:24)
[2023-11-16] MEDS: LEVSIN/MAALOX/LIDOC VISC PO PRN (21:00)
[2023-11-17 05:27] LABS: BASOPHILS # (AUTO) 0.1 X10^3/uL (0.0-0.1); BASOPHILS % (AUTO) 1.1 % (0.2-1.0); EOSINOPHILS # (AUTO) 0.2 x10^3/uL (0.0-0.2); EOSINOPHILS % (AUTO) 3.4 % (0.9-2.9); HEMATOCRIT 38.6 % (36.0-47.0); HEMOGLOBIN 12.6 g/dL (12.0-16.0); LYMPHOCYTES % (AUTO) 19.3 % (21.0-51.0); MEAN CORPUSCULAR HEMOGLOBIN 27.8 pg (27.0-34.0); MEAN CORPUSCULAR HGB CONC 32.8 g/dL (33.0-35.0); MEAN CORPUSCULAR VOLUME 84.9 fL (80.0-100.0); MEAN PLATELET VOLUME 8.9 fL (7.4-11.0); MONOCYTES # (AUTO) 0.5 x10^3/uL (0.3-0.8); MONOCYTES % (AUTO) 9.7 % (0.0-13.0); NEUTROPHILS # (AUTO) 3.3 x10^3/uL (2.2-4.8); NEUTROPHILS % (AUTO) 66.5 % (42.0-75.0); PLATELET COUNT 146 X10^3/uL (150.0-450.0); RED BLOOD COUNT 4.54 X10^6/uL (3.5-5.4); RED CELL DISTRIBUTION WIDTH 15.3 % (11.6-16.5)
[2023-11-17 05:46] LABS: ALANINE AMINOTRANSFERASE 43 Units/L (12-78); ALBUMIN 2.7 g/dL (3.4-5.0); ALKALINE PHOSPHATASE 134 Units/L (46-116); ASPARTATE AMINO TRANSFERASE 47 Units/L (15-37); BLOOD UREA NITROGEN 32 mg/dL (7-18); CALCIUM 9.4 mg/dL (8.5-10.1); CARBON DIOXIDE 40.3 mmol/L (21-32); CHLORIDE 102 mmol/L (98-107); COR CA(FOR HYPOALB) 10.4 mg/dL (8.5-10.1); COR NA(FOR HYPERGLY) 144 mmol/L (136-145); CREATININE 1.13 mg/dL (0.55-1.02); GLUCOSE 125 mg/dL (65-99); POTASSIUM 3.9 mmol/L (3.5-5.1); SODIUM 143 mmol/L (136-145); TOTAL PROTEIN 6.4 g/dL (6.4-8.2); eGFR NON BLACK RACES 50 (>60)
[2023-11-17] MEDS: MAG-OX TAB PO SCH (09:18)
--- NOTE | 2023-11-17 10:02 | PCM.PROG ---
Progress Note Progress Note for Day of Date of Exam: 11/17/23 Subjective Subjective: Patient seen at bedside, no acute events overnight. She did have elevated BP yesterday, did receive IV hydralazine and clonidine as per protocol. She states she stopped taking losartan 2 weeks ago. She has been getting it here. She is not sure why it was discontinued at her PCP appointment. She states she feels bad today, reports weakness. She also has abdominal pain and diarrhea. She states diarrhea started yesterday. She is currently on 2L NC which is what she uses at home. She has been ambulating to the bathroom. She is currently admitted for COPD and CHF exacerbation. Labs/imaging reviewed: -Hgb 12.6 K:3.9 Ma.7 BUN/Cr: 32/1.13 -CXR: decrease in bilateral opacities Plan: Will order stool studies. Continue telemetry monitoring. Continue IV lasix, strict I&Os, daily weights, monitor UOP. Will give one dose of solemedrol. Monitor BP, continue home meds, will adjust if needed. Continue IV antibiotics, follow AIT panel. Continue nebs prn. Continue home medications. Replace K and Mag as per protocol. Wean O2 as tolerated. PT/OT as tolerated. Monitor AM labs/imaging. Past Medical Family Social History Allergies: Allergies codeine Allergy (Verified 09/08/23 14:29) Vital Signs and I&O's Vital Signs: Vital Signs Temperature 98.0 F Temperature 98.3 F Pulse Rate 75 Pulse Rate 82 Pulse Rate 65 Pulse Rate 66 Pulse Rate 65 Pulse Rate 65 Pulse Rate 64 Pulse Rate 69 Respiratory Rate 24 Respiratory Rate 24 Respiratory Rate 22 Respiratory Rate 24 Respiratory Rate 23 Respiratory Rate 28 Respiratory Rate 33 Blood Pressure 173/59 Blood Pressure 172/71 Blood Pressure 172/73 Blood Pressure 167/71 Blood Pressure 180/79 Blood Pressure 177/74 Blood Pressure 193/79 O2 Sat by Pulse Oximetry 98 O2 Sat by Pulse Oximetry 99 O2 Sat by Pulse Oximetry 98 O2 Sat by Pulse Oximetry 99 O2 Sat by Pulse Oximetry 99 O2 Sat by Pulse Oximetry 99 O2 Sat by Pulse Oximetry 95 O2 Sat by Pulse Oximetry 94 Intake and Output: Intake & Output 11/14/23 11/15/23 11/16/23 11/17/23 23:59 23:59 23:59 23:59 Intake Total 1060 / 1060 1388 / 1388 257 / 257 Output Total 800 / 800 Balance 260 / 260 1388 / 1388 257 / 257 Physical Exam Oriented: Normal Eyes: Normal Ear: Normal Nose: Normal Throat: Normal Respiratory: Generalized, Diminished and Wheezes Cardiovascular: Normal Auscultation: Bowel Sounds: Normal Palpation: Normal Tenderness: Normal Skin: Normal Musculoskeletal: Normal Psychiatric: Normal Mood Description: Calm and Appropriate Affect: Normal Speech Pattern: Clear and Appropriate Laboratory and Diagnostics 11/17/23 04:48 11/17/23 04:48 Labs: Laboratory WBC 5.0 X10^3/uL (3.6-10.0) 11/17/23 04:48 RBC 4.54 X10^6/uL (3.5-5.4) 11/17/23 04:48 Hgb 12.6 g/dL (12.0-16.0) 11/17/23 04:48 Hct 38.6 % (36.0-47.0) 11/17/23 04:48 MCV 84.9 fL (80.0-100.0) 11/17/23 04:48 MCH 27.8 pg (27.0-34.0) 11/17/23 04:48 MCHC 32.8 g/dL (33.0-35.0) L 11/17/23 04:48 RDW 15.3 % (11.6-16.5) 11/17/23 04:48 Plt Count 146 X10^3/uL (150.0-450.0) L 11/17/23 04:48 MPV 8.9 fL (7.4-11.0) 11/17/23 04:48 Neut % (Auto) 66.5 % (42.0-75.0) 11/17/23 04:48 Lymph % (Auto) 19.3 % (21.0-51.0) L 11/17/23 04:48 [place] % (Auto) 9.7 % (0.0-13.0) 11/17/23 04:48 Eos % (Auto) 3.4 % (0.9-2.9) H 11/17/23 04:48 Baso % (Auto) 1.1 % (0.2-1.0) H 11/17/23 04:48 Neut # (Auto) 3.3 x10^3/uL (2.2-4.8) 11/17/23 04:48 Lymph # (Auto) 1.0 X10^3/uL (1.3-2.9) L 11/17/23 04:48 [place] # (Auto) 0.5 x10^3/uL (0.3-0.8) 11/17/23 04:48 Eos # (Auto) 0.2 x10^3/uL (0.0-0.2) 11/17/23 04:48 Baso # (Auto) 0.1 X10^3/uL (0.0-0.1) 11/17/23 04:48 Absolute Nucleated RBC 0.1 /100WBC 11/17/23 04:48 PT 15.6 SECONDS (11.8-14.3) 11/16/23 04:44 INR Target Range - 11/16/23 04:44 INR 1.27 (0.8-1.3) 11/16/23 04:44 APTT 29.4 SECONDS (22.9-36.5) 11/16/23 04:44 PTT Comment - 11/16/23 04:44 Sample Site Rr 11/15/23 15:55 ABG pH 7.510 (7.35-7.45) H 11/15/23 15:55 ABG pCO2 41.0 mmHg (35.0-45.0) 11/15/23 15:55 ABG pO2 70.0 mmHg (80.0-100.0) L 11/15/23 15:55 ABG HCO3 32.7 mmol/L (22-26) H* 11/15/23 15:55 ABG O2 Saturation 95.0 % (90-100) 11/15/23 15:55 ABG Base Excess 8.8 mmol/L (-2.0-2.0) H 11/15/23 15:55 [place] Test Pos 11/15/23 15:55 A-a Gradient 78.0 mmHg 11/15/23 15:55 FiO2 28.0 11/15/23 15:55 Blood Gas Comments 2lnc. robyn well. 11/15/23 15:55 Sodium 143 mmol/L (136-145) 11/17/23 04:48 Corrected Sodium 144 mmol/L (136-145) 11/17/23 04:48 Potassium 3.9 mmol/L (3.5-5.1) 11/17/23 04:48 Chloride 102 mmol/L (98-107) 11/17/23 04:48 Carbon Dioxide 40.3 mmol/L (21-32) H 11/17/23 04:48 BUN 32 mg/dL (7-18) H 11/17/23 04:48 Creatinine 1.13 mg/dL (0.55-1.02) H 11/17/23 04:48 Est GFR (MDRD) Af Amer > 60 (>60) 11/17/23 04:48 Est GFR (MDRD) Non-Af 50 (>60) L 11/17/23 04:48 Glucose 125 mg/dL (65-99) H 11/17/23 04:48 POC Glucose (mg/dL) 143 mg/dL (65-99) H 11/17/23 06:26 Lactic Acid 0.7 mmol/L (0.4-2.0) 11/15/23 01:30 Calcium 9.4 mg/dL (8.5-10.1) 11/17/23 04:48 Corrected Calcium 10.4 mg/dL (8.5-10.1) H 11/17/23 04:48 Magnesium 1.7 mg/dL (2.0-2.9) L 11/17/23 04:48 Total Bilirubin 0.60 mg/dL (0.2-1.0) 11/17/23 04:48 AST 47 Units/L (15-37) H 11/17/23 04:48 ALT 43 Units/L (12-78) 11/17/23 04:48 Alkaline Phosphatase 134 Units/L (46-116) H 11/17/23 04:48 Creatine Kinase 28 Units/L (26-192) 11/16/23 04:44 Troponin I High Sens 18.7 ng/L (4.0-60.0) 11/15/23 01:30 B-Natriuretic Peptide 372 pg/mL (0-79) H 11/14/23 23:35 Total Protein 6.4 g/dL (6.4-8.2) 11/17/23 04:48 Albumin 2.7 g/dL (3.4-5.0) L 11/17/23 04:48 Globulin 3.7 g/dL (2.5-4.5) 11/17/23 04:48 Albumin/Globulin Ratio 0.7 Ratio (1.1-2.1) L 11/17/23 04:48 Triglycerides 81 mg/dL (0-150) 11/16/23 04:44 Cholesterol 118 mg/dL (0-200) 11/16/23 04:44 LDL Cholesterol, Calc 38 mg/dL (0-100) 11/16/23 04:44 HDL Cholesterol 64 mg/dL (40-60) H 11/16/23 04:44 Cholesterol/HDL Ratio 1.8 (0.0-5.0) 11/16/23 04:44 Specimen Type Clean catch urine 11/15/23 09:36 Urine Color Yellow (YELLOW) 11/15/23 09:36 Urine Appearance Clear (CLEAR) 11/15/23 09:36 Urine pH 5.0 (5.0 - 8.0) 11/15/23 09:36 Ur Specific [place] 1.020 (1.000-1.030) 11/15/23 09:36 Urine Protein 3+ (NEGATIVE) 11/15/23 09:36 Urine Glucose (UA) 4+ (NEGATIVE) 11/15/23 09:36 Urine Ketones Negative (NEGATIVE) 11/15/23 09:36 Urine Blood 3+ (NEGATIVE) 11/15/23 09:36 Urine Nitrite Negative (NEGATIVE) 11/15/23 09:36 Urine Bilirubin Negative (NEGATIVE) 11/15/23 09:36 Urine Urobilinogen Normal (NORMAL) 11/15/23 09:36 Ur Leukocyte Esterase Negative (NEGATIVE) 11/15/23 09:36 Urine RBC 0-2 /HPF (0-3) 11/15/23 09:36 Urine WBC 5-10 /HPF (0-5) A 11/15/23 09:36 Ur Squamous Epith Cells Few /HPF (NEGATIVE) 11/15/23 09:36 Amorphous Sediment Trace /HPF (NEGATIVE) 11/15/23 09:36 Urine Bacteria 1+ /HPF (NEGATIVE) 11/15/23 09:36 Ur Culture Indicated? No/not indicated 11/15/23 09:36 Plan (1) Acute respiratory failure: Status: Acute Qualifiers: Respiratory failure complication: hypoxia and hypercapnia Qualified Code(s): J96.01 - Acute respiratory failure with hypoxia; J96.02 - Acute respiratory failure with hypercapnia (2) CHF exacerbation: Status: Acute Qualifiers: Heart failure type: unspecified Qualified Code(s): I50.9 - Heart failure, unspecified (3) COPD exacerbation: Status: Acute Plan: Scheduled bronchodilators (4) Hypertension: Status: Acute Qualifiers: Hypertension type: primary hypertension Qualified Code(s): I10 - Essential (primary) hypertension (5) Diabetes mellitus, type 2: Status: Chronic Qualifiers: Diabetes mellitus complication status: without complication Diabetes mellitus snf insulin use: without terminal makeup operator use Qualified Code(s): E11.9 - Type 2 diabetes mellitus without complications (6) Hypothyroidism: Status: Chronic Qualifiers: Hypothyroidism type: acquired Qualified Code(s): E03.9 - Hypothyroidism, unspecified (7) A-fib: Status: Acute Qualifiers: Atrial fibrillation type: unspecified chronic Qualified Code(s): I48.20 - Chronic atrial fibrillation, unspecified
[2023-11-17] MEDS ORDERED: BUTT CREAM (COMPOUND) TOP PRN (10:06)
[2023-11-17] MEDS: SOLU-Medrol 40 MG VIAL IVP ONE (10:15)
[2023-11-17] MEDS: BUTT CREAM (COMPOUND) ONE (10:36)
[2023-11-17] MEDS: ZITHROMAX INJ 500 MG VIAL 500 MG in NS 250 ML IV 250 ML IV SCH (15:01)
[2023-11-17] MEDS: ZOFRAN INJ 4 MG VIAL IVP PRN (15:01)
[2023-11-17] MEDS: BENTYL CAP 10 MG PO SCH (15:02)
[2023-11-17] MEDS: DEMEROL INJ IVP PRN (15:04)
[2023-11-17] MEDS: NS 250 ML IV 250 ML IV ONE (17:31)
[2023-11-17] MEDS: CATAPRES TAB 0.1 MG PO ONE (20:20)
[2023-11-18 05:20] LABS: HEMATOCRIT 36.6 % (36.0-47.0); HEMOGLOBIN 12.1 g/dL (12.0-16.0); MEAN CORPUSCULAR HGB CONC 33.1 g/dL (33.0-35.0)
[2023-11-18 05:26] LABS: BASOPHILS % (AUTO) 0.3 % (0.2-1.0); EOSINOPHILS % (AUTO) 0.4 % (0.9-2.9); LYMPHOCYTES # (AUTO) 0.8 X10^3/uL (1.3-2.9); MEAN CORPUSCULAR HEMOGLOBIN 27.9 pg (27.0-34.0); MEAN CORPUSCULAR VOLUME 84.3 fL (80.0-100.0); MEAN PLATELET VOLUME 8.9 fL (7.4-11.0); MONOCYTES # (AUTO) 0.4 x10^3/uL (0.3-0.8); MONOCYTES % (AUTO) 7.8 % (0.0-13.0); NEUTROPHILS % (AUTO) 76.5 % (42.0-75.0); PLATELET COUNT 139 X10^3/uL (150.0-450.0); RED BLOOD COUNT 4.34 X10^6/uL (3.5-5.4); RED CELL DISTRIBUTION WIDTH 14.8 % (11.6-16.5); WHITE BLOOD COUNT 5.2 X10^3/uL (3.6-10.0)
[2023-11-18 05:33] LABS: ALANINE AMINOTRANSFERASE 39 Units/L (12-78); ALBUMIN 2.7 g/dL (3.4-5.0); ALKALINE PHOSPHATASE 138 Units/L (46-116); ASPARTATE AMINO TRANSFERASE 30 Units/L (15-37); BLOOD UREA NITROGEN 35 mg/dL (7-18); CALCIUM 9.5 mg/dL (8.5-10.1); CARBON DIOXIDE 39.2 mmol/L (21-32); CHLORIDE 97 mmol/L (98-107); COR CA(FOR HYPOALB) 10.5 mg/dL (8.5-10.1); COR NA(FOR HYPERGLY) 143 mmol/L (136-145); CREATININE 1.11 mg/dL (0.55-1.02); GLUCOSE 198 mg/dL (65-99); MAGNESIUM 1.8 mg/dL (2.0-2.9); SODIUM 141 mmol/L (136-145); TOTAL PROTEIN 6.2 g/dL (6.4-8.2); eGFR NON BLACK RACES 51 (>60)
[2023-11-18] MEDS ORDERED: CONSULT PHARMACY - POTASSIUM & MAGNESIUM XX SCH (07:00)
[2023-11-18] MEDS ORDERED: LASIX IVP SCH (09:00)
[2023-11-18] MEDS: MAG-OX TAB PO SCH (09:32)
[2023-11-18] MEDS: LASIX PO SCH (09:32)
--- NOTE | 2023-11-18 09:42 | PCM.PROG ---
Progress Note Progress Note for Day of Date of Exam: 11/18/23 Subjective Subjective: Patient seen at bedside, no acute events overnight. She states she is feeling slightly better, still weak and no appetite. She states diarrhea has slowed down a little bit. Her stool did test positive for Campy infection. She is currently on azithromycin IV. Labs/imaging reviewed: -Hgb 12.1 K:4.0 Ma.8 BUN/Cr: 35/1.11 -CXR: decrease in bilateral opacities -Stool Cx: CAMPY + Plan: Continue IV azithromycin, add probiotics. Continue dicyclomine and pain control. Encouraged PO intake. Will change lasix to 40 mg PO. Continue home medications. Monitor BP, continue home meds, will adjust if needed. Replace K and Mag as per protocol. Wean O2 as tolerated. PT/OT as tolerated. Monitor AM labs/imaging. Past Medical Family Social History Allergies: Allergies codeine Allergy (Verified 09/08/23 14:29) Vital Signs and I&O's Vital Signs: Vital Signs Temperature 97.6 F Pulse Rate 58 Pulse Rate 64 Pulse Rate 60 Pulse Rate 60 Pulse Rate 60 Respiratory Rate 18 Respiratory Rate 15 Respiratory Rate 25 Respiratory Rate 24 Respiratory Rate 16 Blood Pressure 164/77 Blood Pressure 166/75 Blood Pressure 160/77 Blood Pressure 153/74 Blood Pressure 152/59 O2 Sat by Pulse Oximetry 98 O2 Sat by Pulse Oximetry 96 O2 Sat by Pulse Oximetry 97 O2 Sat by Pulse Oximetry 97 O2 Sat by Pulse Oximetry 94 Intake and Output: Intake & Output 11/15/23 11/16/23 11/17/23 11/18/23 23:59 23:59 23:59 23:59 Intake Total 1060 / 1060 1388 / 1388 1367 / 1367 80 / 80 Output Total 800 / 800 Balance 260 / 260 1388 / 1388 1367 / 1367 80 / 80 Physical Exam Oriented: Normal Eyes: Normal Ear: Normal Nose: Normal Throat: Normal Respiratory: Generalized and Diminished Cardiovascular: Normal Auscultation: Bowel Sounds: Normal Tenderness: Epigastric and Mild Skin: Normal Musculoskeletal: Normal Psychiatric: Normal Mood Description: Calm and Appropriate Affect: Normal Speech Pattern: Clear and Appropriate Laboratory and Diagnostics 11/18/23 04:30 11/18/23 04:30 Labs: 11/17/23 10:15 Stool - Final 11/15/23 01:30 Blood Blood Culture - Preliminary 11/15/23 01:10 Blood Blood Culture - Preliminary Laboratory WBC 5.2 X10^3/uL (3.6-10.0) 11/18/23 04:30 RBC 4.34 X10^6/uL (3.5-5.4) 11/18/23 04:30 Hgb 12.1 g/dL (12.0-16.0) 11/18/23 04:30 Hct 36.6 % (36.0-47.0) 11/18/23 04:30 MCV 84.3 fL (80.0-100.0) 11/18/23 04:30 MCH 27.9 pg (27.0-34.0) 11/18/23 04:30 MCHC 33.1 g/dL (33.0-35.0) 11/18/23 04:30 RDW 14.8 % (11.6-16.5) 11/18/23 04:30 Plt Count 139 X10^3/uL (150.0-450.0) L 11/18/23 04:30 MPV 8.9 fL (7.4-11.0) 11/18/23 04:30 Neut % (Auto) 76.5 % (42.0-75.0) H 11/18/23 04:30 Lymph % (Auto) 15.0 % (21.0-51.0) L 11/18/23 04:30 [place] % (Auto) 7.8 % (0.0-13.0) 11/18/23 04:30 Eos % (Auto) 0.4 % (0.9-2.9) L 11/18/23 04:30 Baso % (Auto) 0.3 % (0.2-1.0) 11/18/23 04:30 Neut # (Auto) 4.0 x10^3/uL (2.2-4.8) 11/18/23 04:30 Lymph # (Auto) 0.8 X10^3/uL (1.3-2.9) L 11/18/23 04:30 [place] # (Auto) 0.4 x10^3/uL (0.3-0.8) 11/18/23 04:30 Eos # (Auto) 0.0 x10^3/uL (0.0-0.2) 11/18/23 04:30 Baso # (Auto) 0.0 X10^3/uL (0.0-0.1) 11/18/23 04:30 Absolute Nucleated RBC 0.1 /100WBC 11/18/23 04:30 PT 15.6 SECONDS (11.8-14.3) 11/16/23 04:44 INR Target Range - 11/16/23 04:44 INR 1.27 (0.8-1.3) 11/16/23 04:44 APTT 29.4 SECONDS (22.9-36.5) 11/16/23 04:44 PTT Comment - 11/16/23 04:44 Sample Site Rr 11/15/23 15:55 ABG pH 7.510 (7.35-7.45) H 11/15/23 15:55 ABG pCO2 41.0 mmHg (35.0-45.0) 11/15/23 15:55 ABG pO2 70.0 mmHg (80.0-100.0) L 11/15/23 15:55 ABG HCO3 32.7 mmol/L (22-26) H* 11/15/23 15:55 ABG O2 Saturation 95.0 % (90-100) 11/15/23 15:55 ABG Base Excess 8.8 mmol/L (-2.0-2.0) H 11/15/23 15:55 [place] Test Pos 11/15/23 15:55 A-a Gradient 78.0 mmHg 11/15/23 15:55 FiO2 28.0 11/15/23 15:55 Blood Gas Comments 2lnc. robyn well. 11/15/23 15:55 Sodium 141 mmol/L (136-145) 11/18/23 04:30 Corrected Sodium 143 mmol/L (136-145) 11/18/23 04:30 Potassium 4.0 mmol/L (3.5-5.1) 11/18/23 04:30 Chloride 97 mmol/L (98-107) L 11/18/23 04:30 Carbon Dioxide 39.2 mmol/L (21-32) H 11/18/23 04:30 BUN 35 mg/dL (7-18) H 11/18/23 04:30 Creatinine 1.11 mg/dL (0.55-1.02) H 11/18/23 04:30 Est GFR (MDRD) Af Amer > 60 (>60) 11/18/23 04:30 Est GFR (MDRD) Non-Af 51 (>60) L 11/18/23 04:30 Glucose 198 mg/dL (65-99) H 11/18/23 04:30 POC Glucose (mg/dL) 189 mg/dL (65-99) H 11/18/23 05:01 Lactic Acid 0.7 mmol/L (0.4-2.0) 11/15/23 01:30 Calcium 9.5 mg/dL (8.5-10.1) 11/18/23 04:30 Corrected Calcium 10.5 mg/dL (8.5-10.1) H 11/18/23 04:30 Magnesium 1.8 mg/dL (2.0-2.9) L 11/18/23 04:30 Total Bilirubin 0.50 mg/dL (0.2-1.0) 11/18/23 04:30 AST 30 Units/L (15-37) 11/18/23 04:30 ALT 39 Units/L (12-78) 11/18/23 04:30 Alkaline Phosphatase 138 Units/L (46-116) H 11/18/23 04:30 Creatine Kinase 28 Units/L (26-192) 11/16/23 04:44 Troponin I High Sens 18.7 ng/L (4.0-60.0) 11/15/23 01:30 B-Natriuretic Peptide 372 pg/mL (0-79) H 11/14/23 23:35 Total Protein 6.2 g/dL (6.4-8.2) L 11/18/23 04:30 Albumin 2.7 g/dL (3.4-5.0) L 11/18/23 04:30 Globulin 3.5 g/dL (2.5-4.5) 11/18/23 04:30 Albumin/Globulin Ratio 0.8 Ratio (1.1-2.1) L 11/18/23 04:30 Triglycerides 81 mg/dL (0-150) 11/16/23 04:44 Cholesterol 118 mg/dL (0-200) 11/16/23 04:44 LDL Cholesterol, Calc 38 mg/dL (0-100) 11/16/23 04:44 HDL Cholesterol 64 mg/dL (40-60) H 11/16/23 04:44 Cholesterol/HDL Ratio 1.8 (0.0-5.0) 11/16/23 04:44 Specimen Type Clean catch urine 11/15/23 09:36 Urine Color Yellow (YELLOW) 11/15/23 09:36 Urine Appearance Clear (CLEAR) 11/15/23 09:36 Urine pH 5.0 (5.0 - 8.0) 11/15/23 09:36 Ur Specific [place] 1.020 (1.000-1.030) 11/15/23 09:36 Urine Protein 3+ (NEGATIVE) 11/15/23 09:36 Urine Glucose (UA) 4+ (NEGATIVE) 11/15/23 09:36 Urine Ketones Negative (NEGATIVE) 11/15/23 09:36 Urine Blood 3+ (NEGATIVE) 11/15/23 09:36 Urine Nitrite Negative (NEGATIVE) 11/15/23 09:36 Urine Bilirubin Negative (NEGATIVE) 11/15/23 09:36 Urine Urobilinogen Normal (NORMAL) 11/15/23 09:36 Ur Leukocyte Esterase Negative (NEGATIVE) 11/15/23 09:36 Urine RBC 0-2 /HPF (0-3) 11/15/23 09:36 Urine WBC 5-10 /HPF (0-5) A 11/15/23 09:36 Ur Squamous Epith Cells Few /HPF (NEGATIVE) 11/15/23 09:36 Amorphous Sediment Trace /HPF (NEGATIVE) 11/15/23 09:36 Urine Bacteria 1+ /HPF (NEGATIVE) 11/15/23 09:36 Ur Culture Indicated? No/not indicated 11/15/23 09:36 Stool for White Cells Positive (NEGATIVE) A 11/17/23 10:15 Stl C. diff Tox B Gene Negative (NEGATIVE) 11/17/23 10:15 Stl C. diff [id number] Presumptive negative (NEGATIVE) 11/17/23 10:15 Resp Viral Panel (PCR) See scanned report 11/15/23 06:05 Plan (1) Campylobacter diarrhea: Status: Acute (2) Acute respiratory failure: Status: Acute Qualifiers: Respiratory failure complication: hypoxia and hypercapnia Qualified Code(s): J96.01 - Acute respiratory failure with hypoxia; J96.02 - Acute respiratory failure with hypercapnia (3) CHF exacerbation: Status: Acute Qualifiers: Heart failure type: unspecified Qualified Code(s): I50.9 - Heart failure, unspecified (4) COPD exacerbation: Status: Acute (5) Hypertension: Status: Acute Qualifiers: Hypertension type: primary hypertension Qualified Code(s): I10 - Essential (primary) hypertension (6) Diabetes mellitus, type 2: Status: Chronic Qualifiers: Diabetes mellitus complication status: without complication Diabetes mellitus long-term insulin use: without long-term use Qualified Code(s): E11.9 - Type 2 diabetes mellitus without complications (7) Hypothyroidism: Status: Chronic Qualifiers: Hypothyroidism type: acquired Qualified Code(s): E03.9 - Hypothyroidism, unspecified (8) A-fib: Status: Chronic Qualifiers: Atrial fibrillation type: unspecified chronic Qualified Code(s): I48.20 - Chronic atrial fibrillation, unspecified
[2023-11-18] MEDS: VSL#3 PROBIOTIC CAP 112.5 B PO SCH (12:09)
[2023-11-19 05:12] LABS: BASOPHILS % (AUTO) 1.1 % (0.2-1.0); EOSINOPHILS # (AUTO) 0.2 x10^3/uL (0.0-0.2); EOSINOPHILS % (AUTO) 3.6 % (0.9-2.9); HEMATOCRIT 35.5 % (36.0-47.0); HEMOGLOBIN 11.7 g/dL (12.0-16.0); LYMPHOCYTES # (AUTO) 1.3 X10^3/uL (1.3-2.9); LYMPHOCYTES % (AUTO) 31.1 % (21.0-51.0); MEAN CORPUSCULAR HEMOGLOBIN 27.7 pg (27.0-34.0); MEAN CORPUSCULAR HGB CONC 32.9 g/dL (33.0-35.0); MEAN CORPUSCULAR VOLUME 84.2 fL (80.0-100.0); MEAN PLATELET VOLUME 8.7 fL (7.4-11.0); MONOCYTES # (AUTO) 0.3 x10^3/uL (0.3-0.8); MONOCYTES % (AUTO) 7.4 % (0.0-13.0); NEUTROPHILS # (AUTO) 2.4 x10^3/uL (2.2-4.8); NEUTROPHILS % (AUTO) 56.8 % (42.0-75.0); PLATELET COUNT 128 X10^3/uL (150.0-450.0); RED BLOOD COUNT 4.22 X10^6/uL (3.5-5.4); RED CELL DISTRIBUTION WIDTH 14.8 % (11.6-16.5); WHITE BLOOD COUNT 4.2 X10^3/uL (3.6-10.0)
[2023-11-19 05:19] LABS: ALANINE AMINOTRANSFERASE 46 Units/L (12-78); ALBUMIN 2.6 g/dL (3.4-5.0); ALKALINE PHOSPHATASE 131 Units/L (46-116); ASPARTATE AMINO TRANSFERASE 43 Units/L (15-37); BLOOD UREA NITROGEN 33 mg/dL (7-18); CALCIUM 9.3 mg/dL (8.5-10.1); CARBON DIOXIDE 42.1 mmol/L (21-32); CHLORIDE 99 mmol/L (98-107); COR CA(FOR HYPOALB) 10.4 mg/dL (8.5-10.1); COR NA(FOR HYPERGLY) 144 mmol/L (136-145); GLUCOSE 125 mg/dL (65-99); MAGNESIUM 1.6 mg/dL (2.0-2.9); POTASSIUM 3.8 mmol/L (3.5-5.1); SODIUM 143 mmol/L (136-145); TOTAL PROTEIN 6.1 g/dL (6.4-8.2); eGFR NON BLACK RACES 58 (>60)
[2023-11-19] MEDS ORDERED: CONSULT PHARMACY - POTASSIUM & MAGNESIUM XX SCH (06:00)
[2023-11-19] MEDS: MAG-OX TAB PO SCH (09:00)
[2023-11-19] MEDS: K-DUR TAB 20 MEQ PO SCH (09:00)
[2023-11-19] MEDS: MAG-OX TAB ONE (10:00)
--- NOTE | 2023-11-19 10:21 | PCM.PROG ---
Progress Note Progress Note for Day of Date of Exam: 11/19/23 Subjective Subjective: Patient is resting in bed. She reports her breathing is better but still has some weakness. Diarrhea has improved a little bit. Her stool did test positive for Campy infection. She is currently on azithromycin IV. Labs/imaging reviewed: -Wbc 4.2, Hgb 11.7, Plt 128, Na 143, K 3.8, Creatinine 1.00, Glucose 125, Mag 1.6 -CXR: decrease in bilateral opacities -Stool Cx: CAMPY + Plan: Continue IV azithromycin and probiotics. Continue dicyclomine and pain control. Encouraged PO intake and ambulation. Continue lasix 40 mg PO and home medications. Monitor BP, continue home meds, will adjust if needed. Replace K and Mag as per protocol. Wean O2 as tolerated. PT/OT as tolerated. Monitor AM labs/imaging. Past Medical Family Social History Allergies: Allergies codeine Allergy (Verified 09/08/23 14:29) Review of Systems ROS changes noted: see HPI Vital Signs and I&O's Vital Signs: Vital Signs Temperature 98.4 F Pulse Rate 56 Pulse Rate 67 Pulse Rate 65 Pulse Rate 65 Pulse Rate 55 Pulse Rate 58 Pulse Rate 53 Pulse Rate 53 Pulse Rate 53 Pulse Rate 53 Pulse Rate 51 Pulse Rate 51 Respiratory Rate 9 Respiratory Rate 24 Respiratory Rate 14 Respiratory Rate 14 Respiratory Rate 17 Respiratory Rate 12 Respiratory Rate 17 Respiratory Rate 17 Respiratory Rate 15 Respiratory Rate 16 Respiratory Rate 14 Respiratory Rate 15 Blood Pressure 149/67 Blood Pressure 161/74 Blood Pressure 177/75 Blood Pressure 177/75 Blood Pressure 151/72 Blood Pressure 151/72 Blood Pressure 169/76 Blood Pressure 169/76 Blood Pressure 169/76 Blood Pressure 150/83 Blood Pressure 166/74 Blood Pressure 166/74 Blood Pressure 152/66 Blood Pressure 152/66 O2 Sat by Pulse Oximetry 98 O2 Sat by Pulse Oximetry 95 O2 Sat by Pulse Oximetry 95 O2 Sat by Pulse Oximetry 95 O2 Sat by Pulse Oximetry 95 O2 Sat by Pulse Oximetry 96 O2 Sat by Pulse Oximetry 95 O2 Sat by Pulse Oximetry 95 O2 Sat by Pulse Oximetry 95 O2 Sat by Pulse Oximetry 96 O2 Sat by Pulse Oximetry 94 Intake and Output: Intake & Output 11/16/23 11/17/23 11/18/23 11/19/23 23:59 23:59 23:59 23:59 Intake Total 1388 / 1388 1367 / 1367 2451 / 2451 120 / 120 Balance 1388 / 1388 1367 / 1367 2451 / 2451 120 / 120 Physical Exam Oriented: Normal Eyes: Normal Ear: Normal Nose: Normal Throat: Normal Respiratory: Generalized and Diminished Cardiovascular: Normal : Normal Auscultation: Bowel Sounds: Normal Tenderness: Epigastric and Mild Skin: Normal Musculoskeletal: Normal Psychiatric: Normal Mood Description: Calm and Appropriate Affect: Normal Speech Pattern: Clear and Appropriate Laboratory and Diagnostics 11/19/23 04:45 11/19/23 04:45 Labs: 11/17/23 10:15 Stool Stool Culture - Final 11/17/23 10:15 Stool - Final 11/15/23 01:30 Blood Blood Culture - Preliminary 11/15/23 01:10 Blood Blood Culture - Preliminary Laboratory WBC 4.2 X10^3/uL (3.6-10.0) 11/19/23 04:45 RBC 4.22 X10^6/uL (3.5-5.4) 11/19/23 04:45 Hgb 11.7 g/dL (12.0-16.0) L 11/19/23 04:45 Hct 35.5 % (36.0-47.0) L 11/19/23 04:45 MCV 84.2 fL (80.0-100.0) 11/19/23 04:45 MCH 27.7 pg (27.0-34.0) 11/19/23 04:45 MCHC 32.9 g/dL (33.0-35.0) L 11/19/23 04:45 RDW 14.8 % (11.6-16.5) 11/19/23 04:45 Plt Count 128 X10^3/uL (150.0-450.0) L 11/19/23 04:45 MPV 8.7 fL (7.4-11.0) 11/19/23 04:45 Neut % (Auto) 56.8 % (42.0-75.0) 11/19/23 04:45 Lymph % (Auto) 31.1 % (21.0-51.0) 11/19/23 04:45 [place] % (Auto) 7.4 % (0.0-13.0) 11/19/23 04:45 Eos % (Auto) 3.6 % (0.9-2.9) H 11/19/23 04:45 Baso % (Auto) 1.1 % (0.2-1.0) H 11/19/23 04:45 Neut # (Auto) 2.4 x10^3/uL (2.2-4.8) 11/19/23 04:45 Lymph # (Auto) 1.3 X10^3/uL (1.3-2.9) 11/19/23 04:45 [place] # (Auto) 0.3 x10^3/uL (0.3-0.8) 11/19/23 04:45 Eos # (Auto) 0.2 x10^3/uL (0.0-0.2) 11/19/23 04:45 Baso # (Auto) 0.0 X10^3/uL (0.0-0.1) 11/19/23 04:45 Absolute Nucleated RBC 0.1 /100WBC 11/19/23 04:45 PT 15.6 SECONDS (11.8-14.3) 11/16/23 04:44 INR Target Range - 11/16/23 04:44 INR 1.27 (0.8-1.3) 11/16/23 04:44 APTT 29.4 SECONDS (22.9-36.5) 11/16/23 04:44 PTT Comment - 11/16/23 04:44 Sample Site Rr 11/15/23 15:55 ABG pH 7.510 (7.35-7.45) H 11/15/23 15:55 ABG pCO2 41.0 mmHg (35.0-45.0) 11/15/23 15:55 ABG pO2 70.0 mmHg (80.0-100.0) L 11/15/23 15:55 ABG HCO3 32.7 mmol/L (22-26) H* 11/15/23 15:55 ABG O2 Saturation 95.0 % (90-100) 11/15/23 15:55 ABG Base Excess 8.8 mmol/L (-2.0-2.0) H 11/15/23 15:55 [place] Test Pos 11/15/23 15:55 A-a Gradient 78.0 mmHg 11/15/23 15:55 FiO2 28.0 11/15/23 15:55 Blood Gas Comments 2lnc. robyn well. 11/15/23 15:55 Sodium 143 mmol/L (136-145) 11/19/23 04:45 Corrected Sodium 144 mmol/L (136-145) 11/19/23 04:45 Potassium 3.8 mmol/L (3.5-5.1) 11/19/23 04:45 Chloride 99 mmol/L (98-107) 11/19/23 04:45 Carbon Dioxide 42.1 mmol/L (21-32) H 11/19/23 04:45 BUN 33 mg/dL (7-18) H 11/19/23 04:45 Creatinine 1.00 mg/dL (0.55-1.02) 11/19/23 04:45 Est GFR (MDRD) Af Amer > 60 (>60) 11/19/23 04:45 Est GFR (MDRD) Non-Af 58 (>60) L 11/19/23 04:45 Glucose 125 mg/dL (65-99) H 11/19/23 04:45 POC Glucose (mg/dL) 144 mg/dL (65-99) H 11/19/23 05:53 Lactic Acid 0.7 mmol/L (0.4-2.0) 11/15/23 01:30 Calcium 9.3 mg/dL (8.5-10.1) 11/19/23 04:45 Corrected Calcium 10.4 mg/dL (8.5-10.1) H 11/19/23 04:45 Magnesium 1.6 mg/dL (2.0-2.9) L 11/19/23 04:45 Total Bilirubin 0.40 mg/dL (0.2-1.0) 11/19/23 04:45 AST 43 Units/L (15-37) H 11/19/23 04:45 ALT 46 Units/L (12-78) 11/19/23 04:45 Alkaline Phosphatase 131 Units/L (46-116) H 11/19/23 04:45 Creatine Kinase 28 Units/L (26-192) 11/16/23 04:44 Troponin I High Sens 18.7 ng/L (4.0-60.0) 11/15/23 01:30 B-Natriuretic Peptide 372 pg/mL (0-79) H 11/14/23 23:35 Total Protein 6.1 g/dL (6.4-8.2) L 11/19/23 04:45 Albumin 2.6 g/dL (3.4-5.0) L 11/19/23 04:45 Globulin 3.5 g/dL (2.5-4.5) 11/19/23 04:45 Albumin/Globulin Ratio 0.7 Ratio (1.1-2.1) L 11/19/23 04:45 Triglycerides 81 mg/dL (0-150) 11/16/23 04:44 Cholesterol 118 mg/dL (0-200) 11/16/23 04:44 LDL Cholesterol, Calc 38 mg/dL (0-100) 11/16/23 04:44 HDL Cholesterol 64 mg/dL (40-60) H 11/16/23 04:44 Cholesterol/HDL Ratio 1.8 (0.0-5.0) 11/16/23 04:44 Specimen Type Clean catch urine 11/15/23 09:36 Urine Color Yellow (YELLOW) 11/15/23 09:36 Urine Appearance Clear (CLEAR) 11/15/23 09:36 Urine pH 5.0 (5.0 - 8.0) 11/15/23 09:36 Ur Specific [place] 1.020 (1.000-1.030) 11/15/23 09:36 Urine Protein 3+ (NEGATIVE) 11/15/23 09:36 Urine Glucose (UA) 4+ (NEGATIVE) 11/15/23 09:36 Urine Ketones Negative (NEGATIVE) 11/15/23 09:36 Urine Blood 3+ (NEGATIVE) 11/15/23 09:36 Urine Nitrite Negative (NEGATIVE) 11/15/23 09:36 Urine Bilirubin Negative (NEGATIVE) 11/15/23 09:36 Urine Urobilinogen Normal (NORMAL) 11/15/23 09:36 Ur Leukocyte Esterase Negative (NEGATIVE) 11/15/23 09:36 Urine RBC 0-2 /HPF (0-3) 11/15/23 09:36 Urine WBC 5-10 /HPF (0-5) A 11/15/23 09:36 Ur Squamous Epith Cells Few /HPF (NEGATIVE) 11/15/23 09:36 Amorphous Sediment Trace /HPF (NEGATIVE) 11/15/23 09:36 Urine Bacteria 1+ /HPF (NEGATIVE) 11/15/23 09:36 Ur Culture Indicated? No/not indicated 11/15/23 09:36 Stool for White Cells Positive (NEGATIVE) A 11/17/23 10:15 Stl C. diff Tox B Gene Negative (NEGATIVE) 11/17/23 10:15 Stl C. diff [id number] Presumptive negative (NEGATIVE) 11/17/23 10:15 Resp Viral Panel (PCR) See scanned report 11/15/23 06:05 Plan (1) Campylobacter diarrhea: Status: Acute (2) Acute respiratory failure: Status: Acute Qualifiers: Respiratory failure complication: hypoxia and hypercapnia Qualified Code(s): J96.01 - Acute respiratory failure with hypoxia; J96.02 - Acute respiratory failure with hypercapnia Plan: BiPAP repeat abg this afternoon (3) CHF exacerbation: Status: Acute Qualifiers: Heart failure type: unspecified Qualified Code(s): I50.9 - Heart failure, unspecified Plan: IV lasix BID (4) COPD exacerbation: Status: Acute Plan: Scheduled bronchodilators (5) Hypertension: Status: Acute Qualifiers: Hypertension type: primary hypertension Qualified Code(s): I10 - Essential (primary) hypertension (6) Diabetes mellitus, type 2: Status: Chronic Qualifiers: Diabetes mellitus subscription clerk insulin use: without subscription clerk use Diabetes mellitus complication status: without complication Qualified Code(s): E11.9 - Type 2 diabetes mellitus without complications (7) Hypothyroidism: Status: Chronic Qualifiers: Hypothyroidism type: acquired Qualified Code(s): E03.9 - Hypo thyroidism, unspecified (8) A-fib: Status: Chronic Qualifiers: Atrial fibrillation type: unspecified chronic Qualified Code(s): I48.20 - Chronic atrial fibrillation, unspecified
[2023-11-20 05:10] LABS: BASOPHILS % (AUTO) 0.7 % (0.2-1.0); EOSINOPHILS # (AUTO) 0.2 x10^3/uL (0.0-0.2); EOSINOPHILS % (AUTO) 4.1 % (0.9-2.9); HEMOGLOBIN 12.2 g/dL (12.0-16.0); LYMPHOCYTES # (AUTO) 1.1 X10^3/uL (1.3-2.9); LYMPHOCYTES % (AUTO) 19.8 % (21.0-51.0); MEAN CORPUSCULAR HEMOGLOBIN 27.7 pg (27.0-34.0); MEAN PLATELET VOLUME 8.9 fL (7.4-11.0); MONOCYTES # (AUTO) 0.5 x10^3/uL (0.3-0.8); MONOCYTES % (AUTO) 7.9 % (0.0-13.0); NEUTROPHILS # (AUTO) 3.9 x10^3/uL (2.2-4.8); NEUTROPHILS % (AUTO) 67.5 % (42.0-75.0); PLATELET COUNT 144 X10^3/uL (150.0-450.0); RED BLOOD COUNT 4.41 X10^6/uL (3.5-5.4); RED CELL DISTRIBUTION WIDTH 14.6 % (11.6-16.5); WHITE BLOOD COUNT 5.8 X10^3/uL (3.6-10.0)
[2023-11-20 05:24] LABS: ALANINE AMINOTRANSFERASE 56 Units/L (12-78); ALBUMIN 2.7 g/dL (3.4-5.0); ALKALINE PHOSPHATASE 152 Units/L (46-116); ASPARTATE AMINO TRANSFERASE 51 Units/L (15-37); BLOOD UREA NITROGEN 24 mg/dL (7-18); CALCIUM 9.6 mg/dL (8.5-10.1); CARBON DIOXIDE 40.4 mmol/L (21-32); CHLORIDE 100 mmol/L (98-107); COR CA(FOR HYPOALB) 10.6 mg/dL (8.5-10.1); CREATININE 0.82 mg/dL (0.55-1.02); GLUCOSE 105 mg/dL (65-99); MAGNESIUM 1.7 mg/dL (2.0-2.9); POTASSIUM 3.7 mmol/L (3.5-5.1); SODIUM 142 mmol/L (136-145); TOTAL PROTEIN 6.2 g/dL (6.4-8.2); eGFR NON BLACK RACES > 60 (>60)
[2023-11-20] MEDS ORDERED: CONSULT PHARMACY - POTASSIUM & MAGNESIUM XX SCH (07:00)
[2023-11-20] MEDS: MAG-OX TAB PO SCH (08:43)
[2023-11-20] MEDS: K-DUR TAB 20 MEQ PO SCH (08:43)
[2023-11-20 12:30] VITALS: O2SAT 98
[2023-11-20 13:27] VITALS: TEMP 98
[2023-11-20 14:23] VITALS: BP 162/69; PULSE 54; RESP 20
--- NOTE | 2023-11-23 14:33 | W.DIS.FURT ---
Summary of Discharge Discharge Summary of Date Date of Exam: 11/20/23 Admission Date Date of Admission: 11/14/23 Admission Diagnosis Patient Problems (Updated 11/18/23 @ 09:42 by Yady Kang) Pleural effusion on right (Acute) J90 Pneumonia (Acute) J18.9 Chest pain (Acute) R07.9 COPD exacerbation (Acute) J44.1 SOB (shortness of breath) (Acute) R06.02 Hospital Course: Patient admitted for CHF exacerbation and diarrhea-Campy infection. She her hospital course included azithromycin and probiotics. IV lasix. Pt responded well to treatments and symptoms significantly improved. She completed antibiotic course for campylobacter. Lasix changed to PO 40mg. Electrolytes repleted per protocol. Pt discharged in stable condition. Instructed to follow up with pcp in 1 week. Vital Signs: Vital Signs (72 hours) 11/17/23 11:00 11/17/23 12:00 11/17/23 13:00 Temperature 98.0 F Pulse Rate 66 62 64 Respiratory Rate 26 H 19 22 Blood Pressure 144/74 172/79 171/79 O2 Sat by Pulse Oximetry 96 99 99 Oxygen Delivery Method Nasal Cannula Nasal Cannula Nasal Cannula Oxygen Flow Rate 2 2 2 FIO2% 11/17/23 15:04 11/17/23 11:30 11/17/23 14:00 Temperature Pulse Rate 64 Respiratory Rate 20 20 22 Blood Pressure 171/79 O2 Sat by Pulse Oximetry 99 Oxygen Delivery Method Nasal Cannula Oxygen Flow Rate 2 FIO2% 11/17/23 12:30 11/17/23 15:34 11/17/23 15:00 Temperature Pulse Rate 67 Respiratory Rate 21 20 15 Blood Pressure 143/65 O2 Sat by Pulse Oximetry 97 Oxygen Delivery Method Nasal Cannula Oxygen Flow Rate 2 FIO2% 11/17/23 16:00 11/17/23 17:00 11/17/23 18:00 Temperature 98.2 F Pulse Rate 63 61 68 Respiratory Rate 29 H 25 H 21 Blood Pressure 140/63 140/63 161/69 O2 Sat by Pulse Oximetry 97 97 98 Oxygen Delivery Method Nasal Cannula Nasal Cannula Nasal Cannula Oxygen Flow Rate 2 2 2 FIO2% 11/17/23 19:02 11/17/23 19:00 11/17/23 19:00 Temperature Pulse Rate 67 Respiratory Rate 21 13 Blood Pressure 152/70 O2 Sat by Pulse Oximetry 97 Oxygen Delivery Method Nasal Cannula Nasal Cannula Oxygen Flow Rate 3 2 FIO2% 11/17/23 19:32 11/17/23 20:00 11/17/23 20:00 Temperature Pulse Rate 71 Respiratory Rate 14 Blood Pressure O2 Sat by Pulse Oximetry 97 Oxygen Delivery Method Nasal Cannula Oxygen Flow Rate 2 FIO2% 28 11/17/23 20:00 11/17/23 21:00 11/17/23 22:00 Temperature 97.7 F Pulse Rate 72 63 60 Respiratory Rate 34 H 23 27 H Blood Pressure 149/67 160/68 143/67 O2 Sat by Pulse Oximetry 96 96 97 Oxygen Delivery Method Nasal Cannula Nasal Cannula Nasal Cannula Oxygen Flow Rate 2 3 3 FIO2% 11/17/23 23:00 11/18/23 00:00 11/18/23 00:00 Temperature 97.8 F Pulse Rate 59 L 60 Respiratory Rate 29 H 27 H Blood Pressure 145/67 142/68 O2 Sat by Pulse Oximetry 98 97 Oxygen Delivery Method Nasal Cannula Nasal Cannula Nasal Cannula Oxygen Flow Rate 3 2 2 FIO2% 28 11/18/23 01:00 11/18/23 02:00 11/18/23 03:00 Temperature Pulse Rate 60 60 60 Respiratory Rate 22 16 24 Blood Pressure 146/71 152/59 153/74 O2 Sat by Pulse Oximetry 100 94 L 97 Oxygen Delivery Method Nasal Cannula Nasal Cannula Nasal Cannula Oxygen Flow Rate 2 3 3 FIO2% 11/18/23 04:00 11/18/23 05:00 11/18/23 06:00 Temperature 97.6 F Pulse Rate 60 64 58 L Respiratory Rate 25 H 15 18 Blood Pressure 160/77 166/75 164/77 O2 Sat by Pulse Oximetry 97 96 98 Oxygen Delivery Method Nasal Cannula Nasal Cannula Nasal Cannula Oxygen Flow Rate 3 3 2 FIO2% 11/18/23 08:30 11/18/23 08:30 11/17/23 15:00 Temperature Pulse Rate 75 67 Respiratory Rate 22 Blood Pressure O2 Sat by Pulse Oximetry 97 96 Oxygen Delivery Method Nasal Cannula Oxygen Flow Rate 2 FIO2% 11/17/23 15:40 11/17/23 15:40 11/17/23 15:40 Temperature Pulse Rate 67 Respiratory Rate 15 Blood Pressure 143/65 143/65 O2 Sat by Pulse Oximetry 97 Oxygen Delivery Method Oxygen Flow Rate FIO2% 11/17/23 16:00 11/17/23 16:00 11/17/23 17:00 Temperature Pulse Rate 63 Respiratory Rate Blood Pressure 140/63 146/67 O2 Sat by Pulse Oximetry 97 Oxygen Delivery Method Oxygen Flow Rate FIO2% 11/17/23 17:00 11/17/23 18:00 11/17/23 18:00 Temperature Pulse Rate 61 68 Respiratory Rate 21 Blood Pressure 161/69 O2 Sat by Pulse Oximetry 97 98 Oxygen Delivery Method Oxygen Flow Rate FIO2% 11/17/23 19:00 11/17/23 19:00 11/17/23 20:00 Temperature Pulse Rate 66 64 Respiratory Rate 20 Blood Pressure 152/70 O2 Sat by Pulse Oximetry 96 100 Oxygen Delivery Method Oxygen Flow Rate FIO2% 11/17/23 20:00 11/17/23 21:00 11/17/23 21:03 Temperature Pulse Rate 65 61 Respiratory Rate 23 22 Blood Pressure 149/67 O2 Sat by Pulse Oximetry 98 97 Oxygen Delivery Method Oxygen Flow Rate FIO2% 11/17/23 21:03 11/17/23 21:03 11/17/23 22:00 Temperature Pulse Rate 60 Respiratory Rate 22 Blood Pressure 160/68 160/68 O2 Sat by Pulse Oximetry 97 Oxygen Delivery Method Oxygen Flow Rate FIO2% 11/17/23 22:00 11/17/23 23:00 11/17/23 23:00 Temperature Pulse Rate 60 Respiratory Rate Blood Pressure 143/67 145/67 O2 Sat by Pulse Oximetry 97 Oxygen Delivery Method Oxygen Flow Rate FIO2% 11/18/23 00:00 11/18/23 00:00 11/18/23 00:00 Temperature Pulse Rate 58 L Respiratory Rate 14 Blood Pressure 142/68 142/68 O2 Sat by Pulse Oximetry 97 Oxygen Delivery Method Oxygen Flow Rate FIO2% 11/18/23 01:00 11/18/23 01:00 11/18/23 02:00 Temperature Pulse Rate 60 Respiratory Rate Blood Pressure 146/71 152/72 O2 Sat by Pulse Oximetry 98 Oxygen Delivery Method Oxygen Flow Rate FIO2% 11/18/23 02:00 11/18/23 03:00 11/18/23 03:00 Temperature Pulse Rate 58 L 60 Respiratory Rate 24 Blood Pressure 153/74 O2 Sat by Pulse Oximetry 98 98 Oxygen Delivery Method Oxygen Flow Rate FIO2% 11/18/23 04:00 11/18/23 04:00 11/18/23 05:00 Temperature Pulse Rate 60 Respiratory Rate 33 H Blood Pressure 160/77 166/75 O2 Sat by Pulse Oximetry 97 Oxygen Delivery Method Oxygen Flow Rate FIO2% 11/18/23 05:00 11/18/23 06:00 11/18/23 06:00 Temperature Pulse Rate 63 61 Respiratory Rate 37 H 17 Blood Pressure 170/102 O2 Sat by Pulse Oximetry 98 98 Oxygen Delivery Method Oxygen Flow Rate FIO2% 11/18/23 06:03 11/18/23 06:03 11/18/23 07:00 Temperature Pulse Rate 58 L Respiratory Rate 23 Blood Pressure 164/77 171/79 O2 Sat by Pulse Oximetry 98 Oxygen Delivery Method Oxygen Flow Rate FIO2% 11/18/23 07:00 11/18/23 08:00 11/18/23 08:00 Temperature Pulse Rate 62 66 Respiratory Rate 19 22 Blood Pressure 168/77 O2 Sat by Pulse Oximetry 98 96 Oxygen Delivery Method Oxygen Flow Rate FIO2% 11/18/23 08:57 11/18/23 09:32 11/18/23 09:51 Temperature Pulse Rate 69 80 Respiratory Rate Blood Pressure 163/71 O2 Sat by Pulse Oximetry 95 Oxygen Delivery Method Oxygen Flow Rate FIO2% 11/18/23 10:00 11/18/23 10:00 11/18/23 11:00 Temperature Pulse Rate 63 Respiratory Rate 22 Blood Pressure 170/77 177/76 O2 Sat by Pulse Oximetry 97 Oxygen Delivery Method Oxygen Flow Rate FIO2% 11/18/23 11:00 11/18/23 14:09 11/18/23 12:00 Temperature 98.0 F Pulse Rate 60 52 L Respiratory Rate 15 21 14 Blood Pressure O2 Sat by Pulse Oximetry 99 99 Oxygen Delivery Method Oxygen Flow Rate FIO2% 11/18/23 12:01 11/18/23 12:01 11/18/23 13:00 Temperature Pulse Rate 52 L 64 Respiratory Rate 13 Blood Pressure 172/79 O2 Sat by Pulse Oximetry 100 97 Oxygen Delivery Method Oxygen Flow Rate FIO2% 11/18/23 14:00 11/18/23 14:21 11/18/23 14:21 Temperature Pulse Rate 58 L 58 L Respiratory Rate 20 12 Blood Pressure 151/69 O2 Sat by Pulse Oximetry 96 97 Oxygen Delivery Method Oxygen Flow Rate FIO2% 11/18/23 15:00 11/18/23 15:00 11/18/23 16:00 Temperature Pulse Rate 58 L 51 L Respiratory Rate 16 17 Blood Pressure 144/65 O2 Sat by Pulse Oximetry 96 95 Oxygen Delivery Method Oxygen Flow Rate FIO2% 11/18/23 16:00 11/18/23 14:39 11/18/23 07:00 Temperature 98.0 F Pulse Rate Respiratory Rate 18 Blood Pressure 154/72 O2 Sat by Pulse Oximetry Oxygen Delivery Method Nasal Cannula Oxygen Flow Rate 2 FIO2% 11/18/23 17:00 11/18/23 17:00 11/18/23 18:00 Temperature Pulse Rate 53 L 58 L Respiratory Rate 23 Blood Pressure 167/74 O2 Sat by Pulse Oximetry 98 2 L Oxygen Delivery Method Nasal Cannula Oxygen Flow Rate FIO2% 11/18/23 18:01 11/18/23 18:01 11/18/23 19:00 Temperature Pulse Rate 58 L Respiratory Rate Blood Pressure 152/90 O2 Sat by Pulse Oximetry 95 Oxygen Delivery Method Nasal Cannula Oxygen Flow Rate 2 FIO2% 11/19/23 01:09 11/18/23 19:00 11/18/23 20:00 Temperature 98.2 F Pulse Rate 61 57 L Respiratory Rate 22 23 17 Blood Pressure 168/78 170/72 O2 Sat by Pulse Oximetry 97 97 Oxygen Delivery Method Nasal Cannula Nasal Cannula Oxygen Flow Rate 2 2 FIO2% 11/18/23 21:00 11/18/23 22:00 11/18/23 21:00 Temperature Pulse Rate 58 L 49 L Respiratory Rate 20 15 Blood Pressure 164/76 168/76 O2 Sat by Pulse Oximetry 100 94 L Oxygen Delivery Method Nasal Cannula Nasal Cannula Nasal Cannula Oxygen Flow Rate 2 2 2 FIO2% 28 11/18/23 21:00 11/18/23 23:00 11/19/23 00:00 Temperature 97.8 F Pulse Rate 57 L 60 52 L Respiratory Rate 15 13 Blood Pressure 177/76 172/79 O2 Sat by Pulse Oximetry 100 99 100 Oxygen Delivery Method Nasal Cannula Nasal Cannula Oxygen Flow Rate 2 2 FIO2% 11/19/23 01:00 11/19/23 02:00 11/19/23 03:00 Temperature Pulse Rate 50 L 51 L 51 L Respiratory Rate 14 14 15 Blood Pressure 144/72 156/68 152/66 O2 Sat by Pulse Oximetry 93 L 94 L 94 L Oxygen Delivery Method Nasal Cannula Nasal Cannula Nasal Cannula Oxygen Flow Rate 2 2 2 FIO2% 11/19/23 04:00 11/19/23 05:00 11/19/23 01:39 Temperature 98.4 F Pulse Rate 53 L 53 L Respiratory Rate 16 17 22 Blood Pressure 166/74 150/83 O2 Sat by Pulse Oximetry 96 95 Oxygen Delivery Method Nasal Cannula Nasal Cannula Oxygen Flow Rate 2 2 FIO2% 11/19/23 06:00 11/19/23 08:22 11/18/23 18:55 Temperature Pulse Rate 58 L 59 L Respiratory Rate 12 24 Blood Pressure 151/72 O2 Sat by Pulse Oximetry 96 98 Oxygen Delivery Method Nasal Cannula Nasal Cannula Oxygen Flow Rate 2 2 FIO2% 28 11/18/23 18:55 11/18/23 19:00 11/18/23 19:00 Temperature Pulse Rate 61 Respiratory Rate 23 Blood Pressure 165/71 168/78 O2 Sat by Pulse Oximetry 97 Oxygen Delivery Method Oxygen Flow Rate FIO2% 11/18/23 20:00 11/18/23 20:00 11/18/23 21:00 Temperature Pulse Rate 55 L 60 Respiratory Rate 17 Blood Pressure 170/72 O2 Sat by Pulse Oximetry 97 95 Oxygen Delivery Method Oxygen Flow Rate FIO2% 11/18/23 21:00 11/18/23 22:00 11/18/23 22:01 Temperature Pulse Rate 51 L 51 L Respiratory Rate Blood Pressure 164/76 O2 Sat by Pulse Oximetry Oxygen Delivery Method Oxygen Flow Rate FIO2% 11/18/23 22:01 11/18/23 23:00 11/18/23 23:00 Temperature Pulse Rate 49 L Respiratory Rate 20 Blood Pressure 168/76 155/72 O2 Sat by Pulse Oximetry 95 Oxygen Delivery Method Oxygen Flow Rate FIO2% 11/19/23 00:00 11/19/23 00:00 11/19/23 01:00 Temperature Pulse Rate 51 L 52 L Respiratory Rate 22 23 Blood Pressure 178/79 O2 Sat by Pulse Oximetry Oxygen Delivery Method Oxygen Flow Rate FIO2% 11/19/23 01:01 11/19/23 01:01 11/19/23 01:03 Temperature Pulse Rate 52 L Respiratory Rate 20 Blood Pressure 191/77 144/72 O2 Sat by Pulse Oximetry Oxygen Delivery Method Oxygen Flow Rate FIO2% 11/19/23 01:03 11/19/23 02:00 11/19/23 02:00 Temperature Pulse Rate 52 L 50 L Respiratory Rate 21 15 Blood Pressure 156/68 O2 Sat by Pulse Oximetry 95 95 Oxygen Delivery Method Oxygen Flow Rate FIO2% 11/19/23 03:00 11/19/23 03:00 11/19/23 04:00 Temperature Pulse Rate 51 L 53 L Respiratory Rate 14 15 Blood Pressure 152/66 O2 Sat by Pulse Oximetry 95 Oxygen Delivery Method Oxygen Flow Rate FIO2% 11/19/23 04:00 11/19/23 05:00 11/19/23 05:00 Temperature Pulse Rate Respiratory Rate Blood Pressure 166/74 169/76 169/76 O2 Sat by Pulse Oximetry Oxygen Delivery Method Oxygen Flow Rate FIO2% 11/19/23 05:00 11/19/23 05:00 11/19/23 06:00 Temperature Pulse Rate 53 L 55 L Respiratory Rate 17 17 Blood Pressure 169/76 O2 Sat by Pulse Oximetry 95 95 Oxygen Delivery Method Oxygen Flow Rate FIO2% 11/19/23 06:00 11/19/23 07:00 11/19/23 07:00 Temperature Pulse Rate Respiratory Rate Blood Pressure 151/72 177/75 177/75 O2 Sat by Pulse Oximetry Oxygen Delivery Method Oxygen Flow Rate FIO2% 11/19/23 07:00 11/19/23 07:00 11/19/23 08:00 Temperature Pulse Rate 65 65 Respiratory Rate 14 14 Blood Pressure 161/74 O2 Sat by Pulse Oximetry 95 95 Oxygen Delivery Method Nasal Cannula Oxygen Flow Rate 2 FIO2% 11/19/23 08:00 11/19/23 09:00 11/19/23 09:00 Temperature Pulse Rate 67 56 L Respiratory Rate 24 9 L Blood Pressure 149/67 O2 Sat by Pulse Oximetry 95 98 Oxygen Delivery Method Nasal Cannula Oxygen Flow Rate 2 FIO2% 11/19/23 10:00 11/19/23 10:01 11/19/23 10:01 Temperature Pulse Rate 63 Respiratory Rate 23 Blood Pressure 146/67 146/67 O2 Sat by Pulse Oximetry 97 Oxygen Delivery Method Oxygen Flow Rate FIO2% 11/19/23 10:01 11/19/23 11:05 11/19/23 11:06 Temperature Pulse Rate 61 66 61 Respiratory Rate 26 H Blood Pressure O2 Sat by Pulse Oximetry 97 83 L Oxygen Delivery Method Oxygen Flow Rate FIO2% 11/19/23 11:06 11/19/23 12:00 11/19/23 12:01 Temperature 97.9 F Pulse Rate 57 L Respiratory Rate 20 Blood Pressure 143/67 165/70 O2 Sat by Pulse Oximetry 98 Oxygen Delivery Method Oxygen Flow Rate FIO2% 11/19/23 12:01 11/19/23 13:23 11/19/23 13:30 Temperature Pulse Rate 53 L 60 60 Respiratory Rate 22 19 Blood Pressure O2 Sat by Pulse Oximetry 99 99 99 Oxygen Delivery Method Oxygen Flow Rate FIO2% 11/19/23 13:32 11/19/23 13:32 11/19/23 14:00 Temperature Pulse Rate 62 56 L Respiratory Rate 21 Blood Pressure 155/73 O2 Sat by Pulse Oximetry 99 98 Oxygen Delivery Method Nasal Cannula Oxygen Flow Rate 2 FIO2% 11/19/23 15:00 11/19/23 16:00 11/19/23 07:00 Temperature 98.0 F Pulse Rate 49 L 62 Respiratory Rate 12 20 Blood Pressure O2 Sat by Pulse Oximetry 100 97 Oxygen Delivery Method Nasal Cannula Nasal Cannula Nasal Cannula Oxygen Flow Rate 2 2 2 FIO2% 11/19/23 17:00 11/19/23 17:17 11/19/23 17:19 Temperature Pulse Rate 52 L 60 Respiratory Rate 21 15 Blood Pressure 161/74 O2 Sat by Pulse Oximetry 98 100 Oxygen Delivery Method Nasal Cannula Oxygen Flow Rate 2 FIO2% 11/19/23 17:19 11/19/23 17:19 11/19/23 18:00 Temperature Pulse Rate 58 L Respiratory Rate 18 Blood Pressure 161/74 180/79 O2 Sat by Pulse Oximetry 99 Oxygen Delivery Method Nasal Cannula Oxygen Flow Rate 2 FIO2% 11/19/23 18:00 11/19/23 19:00 11/19/23 19:00 Temperature Pulse Rate 55 L 58 L Respiratory Rate 15 20 Blood Pressure 175/76 O2 Sat by Pulse Oximetry 99 97 Oxygen Delivery Method Nasal Cannula Nasal Cannula Oxygen Flow Rate 2 2 FIO2% 11/19/23 20:00 11/19/23 21:00 11/19/23 21:47 Temperature 98.0 F Pulse Rate 63 51 L Respiratory Rate 14 25 H Blood Pressure 171/76 182/79 170/80 O2 Sat by Pulse Oximetry 98 96 Oxygen Delivery Method Nasal Cannula Nasal Cannula Oxygen Flow Rate 2 2 FIO2% 11/19/23 22:00 11/19/23 21:09 11/19/23 21:09 Temperature Pulse Rate 50 L 58 L Respiratory Rate 30 H Blood Pressure 168/76 O2 Sat by Pulse Oximetry 96 98 Oxygen Delivery Method Nasal Cannula Nasal Cannula Oxygen Flow Rate 2 2 FIO2% 28 11/20/23 00:00 11/20/23 01:00 11/20/23 02:00 Temperature 98.3 F Pulse Rate 56 L 54 L 58 L Respiratory Rate 35 H 31 H 15 Blood Pressure 173/78 175/79 168/79 O2 Sat by Pulse Oximetry 96 96 98 Oxygen Delivery Method Nasal Cannula Nasal Cannula Nasal Cannula Oxygen Flow Rate 2 2 2 FIO2% 22 22 11/20/23 03:00 11/20/23 04:00 11/20/23 05:00 Temperature 98.4 F Pulse Rate 54 L 54 L 51 L Respiratory Rate 20 26 H 35 H Blood Pressure 158/74 151/70 171/72 O2 Sat by Pulse Oximetry 95 97 Oxygen Delivery Method Nasal Cannula Nasal Cannula Nasal Cannula Oxygen Flow Rate 2 2 2 FIO2% 11/20/23 06:00 11/20/23 07:00 11/20/23 08:00 Temperature 98.4 F Pulse Rate 52 L 50 L 65 Respiratory Rate 18 20 24 Blood Pressure 151/68 168/76 179/77 O2 Sat by Pulse Oximetry 98 96 97 Oxygen Delivery Method Nasal Cannula Nasal Cannula Nasal Cannula Oxygen Flow Rate 2 2 2 FIO2% 11/20/23 07:00 11/20/23 09:00 11/20/23 09:26 Temperature Pulse Rate 53 L 59 L Respiratory Rate 18 Blood Pressure 157/70 O2 Sat by Pulse Oximetry 96 96 Oxygen Delivery Method Nasal Cannula Nasal Cannula Oxygen Flow Rate 2 2 FIO2% Labs: Laboratory Last Values WBC 5.8 X10^3/uL (3.6-10.0) 11/20/23 04:16 RBC 4.41 X10^6/uL (3.5-5.4) 11/20/23 04:16 Hgb 12.2 g/dL (12.0-16.0) 11/20/23 04:16 Hct 37.0 % (36.0-47.0) 11/20/23 04:16 MCV 84.0 fL (80.0-100.0) 11/20/23 04:16 MCH 27.7 pg (27.0-34.0) 11/20/23 04:16 MCHC 33.0 g/dL (33.0-35.0) 11/20/23 04:16 RDW 14.6 % (11.6-16.5) 11/20/23 04:16 Plt Count 144 X10^3/uL (150.0-450.0) L 11/20/23 04:16 MPV 8.9 fL (7.4-11.0) 11/20/23 04:16 Neut % (Auto) 67.5 % (42.0-75.0) 11/20/23 04:16 Lymph % (Auto) 19.8 % (21.0-51.0) L 11/20/23 04:16 [place] % (Auto) 7.9 % (0.0-13.0) 11/20/23 04:16 Eos % (Auto) 4.1 % (0.9-2.9) H 11/20/23 04:16 Baso % (Auto) 0.7 % (0.2-1.0) 11/20/23 04:16 Neut # (Auto) 3.9 x10^3/uL (2.2-4.8) 11/20/23 04:16 Lymph # (Auto) 1.1 X10^3/uL (1.3-2.9) L 11/20/23 04:16 [place] # (Auto) 0.5 x10^3/uL (0.3-0.8) 11/20/23 04:16 Eos # (Auto) 0.2 x10^3/uL (0.0-0.2) 11/20/23 04:16 Baso # (Auto) 0.0 X10^3/uL (0.0-0.1) 11/20/23 04:16 Absolute Nucleated RBC 0.1 /100WBC 11/20/23 04:16 PT 15.6 SECONDS (11.8-14.3) 11/16/23 04:44 INR Target Range - 11/16/23 04:44 INR 1.27 (0.8-1.3) 11/16/23 04:44 APTT 29.4 SECONDS (22.9-36.5) 11/16/23 04:44 PTT Comment - 11/16/23 04:44 Sample Site Rr 11/15/23 15:55 ABG pH 7.510 (7.35-7.45) H 11/15/23 15:55 ABG pCO2 41.0 mmHg (35.0-45.0) 11/15/23 15:55 ABG pO2 70.0 mmHg (80.0-100.0) L 11/15/23 15:55 ABG HCO3 32.7 mmol/L (22-26) H* 11/15/23 15:55 ABG O2 Saturation 95.0 % (90-100) 11/15/23 15:55 ABG Base Excess 8.8 mmol/L (-2.0-2.0) H 11/15/23 15:55 [place] Test Pos 11/15/23 15:55 A-a Gradient 78.0 mmHg 11/15/23 15:55 FiO2 28.0 11/15/23 15:55 Blood Gas Comments 2lnc. robyn well. 11/15/23 15:55 Sodium 142 mmol/L (136-145) 11/20/23 04:16 Corrected Sodium TNP 11/20/23 04:16 Potassium 3.7 mmol/L (3.5-5.1) 11/20/23 04:16 Chloride 100 mmol/L (98-107) 11/20/23 04:16 Carbon Dioxide 40.4 mmol/L (21-32) H 11/20/23 04:16 BUN 24 mg/dL (7-18) H 11/20/23 04:16 Creatinine 0.82 mg/dL (0.55-1.02) 11/20/23 04:16 Est GFR (MDRD) Af Amer > 60 (>60) 11/20/23 04:16 Est GFR (MDRD) Non-Af > 60 (>60) 11/20/23 04:16 Glucose 105 mg/dL (65-99) H 11/20/23 04:16 POC Glucose (mg/dL) 122 mg/dL (65-99) H 11/20/23 05:16 Lactic Acid 0.7 mmol/L (0.4-2.0) 11/15/23 01:30 Calcium 9.6 mg/dL (8.5-10.1) 11/20/23 04:16 Corrected Calcium 10.6 mg/dL (8.5-10.1) H 11/20/23 04:16 Magnesium 1.7 mg/dL (2.0-2.9) L 11/20/23 04:16 Total Bilirubin 0.50 mg/dL (0.2-1.0) 11/20/23 04:16 AST 51 Units/L (15-37) H 11/20/23 04:16 ALT 56 Units/L (12-78) 11/20/23 04:16 Alkaline Phosphatase 152 Units/L (46-116) H 11/20/23 04:16 Creatine Kinase 28 Units/L (26-192) 11/16/23 04:44 Troponin I High Sens 18.7 ng/L (4.0-60.0) 11/15/23 01:30 B-Natriuretic Peptide 372 pg/mL (0-79) H 11/14/23 23:35 Total Protein 6.2 g/dL (6.4-8.2) L 11/20/23 04:16 Albumin 2.7 g/dL (3.4-5.0) L 11/20/23 04:16 Globulin 3.5 g/dL (2.5-4.5) 11/20/23 04:16 Albumin/Globulin Ratio 0.8 Ratio (1.1-2.1) L 11/20/23 04:16 Triglycerides 81 mg/dL (0-150) 11/16/23 04:44 Cholesterol 118 mg/dL (0-200) 11/16/23 04:44 LDL Cholesterol, Calc 38 mg/dL (0-100) 11/16/23 04:44 HDL Cholesterol 64 mg/dL (40-60) H 11/16/23 04:44 Cholesterol/HDL Ratio 1.8 (0.0-5.0) 11/16/23 04:44 Specimen Type Clean catch urine 11/15/23 09:36 Urine Color Yellow (YELLOW) 11/15/23 09:36 Urine Appearance Clear (CLEAR) 11/15/23 09:36 Urine pH 5.0 (5.0 - 8.0) 11/15/23 09:36 Ur Specific [place] 1.020 (1.000-1.030) 11/15/23 09:36 Urine Protein 3+ (NEGATIVE) 11/15/23 09:36 Urine Glucose (UA) 4+ (NEGATIVE) 11/15/23 09:36 Urine Ketones Negative (NEGATIVE) 11/15/23 09:36 Urine Blood 3+ (NEGATIVE) 11/15/23 09:36 Urine Nitrite Negative (NEGATIVE) 11/15/23 09:36 Urine Bilirubin Negative (NEGATIVE) 11/15/23 09:36 Urine Urobilinogen Normal (NORMAL) 11/15/23 09:36 Ur Leukocyte Esterase Negative (NEGATIVE) 11/15/23 09:36 Urine RBC 0-2 /HPF (0-3) 11/15/23 09:36 Urine WBC 5-10 /HPF (0-5) A 11/15/23 09:36 Ur Squamous Epith Cells Few /HPF (NEGATIVE) 11/15/23 09:36 Amorphous Sediment Trace /HPF (NEGATIVE) 11/15/23 09:36 Urine Bacteria 1+ /HPF (NEGATIVE) 11/15/23 09:36 Ur Culture Indicated? No/not indicated 11/15/23 09:36 Stool for White Cells Positive (NEGATIVE) A 11/17/23 10:15 Stl C. diff Tox B Gene Negative (NEGATIVE) 11/17/23 10:15 Stl C. diff [id number] Presumptive negative (NEGATIVE) 11/17/23 10:15 Resp Viral Panel (PCR) See scanned report 11/15/23 06:05 Reason For Visit: RT PLEURAL EFFUSION, PNEUMONIA, CHEST PAIN Discharge Date Discharge Date: 11/20/23 Discharge Diagnosis All Active Problems (Updated 11/18/23 @ 09:42 by Yady Kang) Campylobacter diarrhea (Acute) Acute respiratory failure (Acute) COVID-19 (Acute) CHF (congestive heart failure) (Acute) Pleural effusion on right (Acute) Pneumonia (Acute) Chest pain (Acute) COPD exacerbation (Acute) SOB (shortness of breath) (Acute) Atrial fibrillation with RVR (Acute) Congestive heart failure (Acute) Chest pain (Acute) Respiratory failure (Acute) COPD (chronic obstructive pulmonary disease) (Acute) Dependence on continuous supplemental oxygen (Acute) H/O cardiac radiofrequency ablation (Acute) History of atrial fibrillation (Acute) Pleural effusion on right (Acute) Type A influenza (Acute) Mitral regurgitation (Acute) Renal insufficiency (Acute) Chest pain (Acute) CHF (congestive heart failure) (Acute) CHF exacerbation (Acute) UTI (urinary tract infection) (Acute) Hypertension (Acute) Hypomagnesemia (Acute) Hypokalemia (Acute) Atrial fibrillation with rapid ventricular response (Acute) Acute bronchitis (Acute) Gastroenteritis (Acute) Nausea vomiting and diarrhea (Acute) Dehydration (Acute) Weakness (Acute) Hyperlipidemia (Chronic) Diabetes mellitus, type 2 (Chronic) Hypothyroidism (Chronic) Anxiety (Acute) Depression (Chronic) Mitral valve prolapse (Chronic) COPD (chronic obstructive pulmonary disease) (Chronic) Sleep apnea (Chronic) GERD (gastroesophageal reflux disease) (Chronic) Fatty liver (Chronic) Arthritis (Chronic) Dizziness (Acute) Left ankle sprain (Acute) Contusion of left foot (Acute) Left knee sprain (Acute) Sprain of right shoulder (Acute) Intractable neuropathic pain of right lower extremity (Acute) Intractable pain (Acute) Radiculopathy of leg (Acute) Headache (Acute) Fall (Acute) Contusion of knee, left (Acute) A-fib (Chronic) Plan of Treatment: Continue with present treatment and follow up plan. Pt is to keep follow up appointment as instructed and take medications as ordered. Discharge Medications Discharge Medications: codeine Allergy (Verified 09/08/23 14:29) CONTINUE taking the following medications budesonide 0.5 mg/2 mL suspension for nebulization 0.5 mg NEB BID PRN 11/15/23 [History] fluconazole 200 mg tablet 200 mg PO Q OTHER DAY 11/15/23 [History] gabapentin 400 mg capsule 400 mg PO BID 11/15/23 [History] pantoprazole 40 mg tablet,delayed release 40 mg PO QDAY 11/15/23 [History] ropinirole 1 mg tablet 1 mg PO QAM 11/15/23 [History] ropinirole 1 mg tablet 2 mg PO QHS 11/15/23 [History] Discharge Plan Discharge Plan Hospital Course: Patient admitted for CHF exacerbation and diarrhea-Campy infection. She her hospital course included azithromycin and probiotics. IV lasix. Pt responded well to treatments and symptoms significantly improved. She completed antibiotic course for campylobacter. Lasix changed to PO 40mg. Electrolytes repleted per protocol. Pt discharged in stable condition. Instructed to follow up with pcp in 1 week. Patient Disposition: [facility] Condition: Stable Health Concerns: Post Hospitalization: new medications and changes needed to prevent readmission or further decline. Pt educated and given instructions on all concerns. Care Plan Goals: Problem: Infection Goal: Temperature within normal limits. Resolved infection. Instructions: Follow provided instructions. Follow up with primary physician as directed. Contact primary care physician or report to the closest Emergency Room if condition worsens. Plan of Treatment: Continue with present treatment and follow up plan. Pt is to keep follow up appointment as instructed and take medications as ordered. Prescriptions: Continued clonazepam 1 mg tablet 1 mg PO QHS furosemide 40 mg tablet 40 mg PO QDAY PRN (Reason: edema) Qty: 60 2RF Rx Instructions: TAKE NEEDED FOR SWELLING montelukast 10 mg tablet 10 mg PO QHS amlodipine 5 mg tablet 5 mg PO BID metoclopramide HCl 5 mg tablet 5 mg PO TID cholecalciferol (vitamin D3) [Vitamin D3] 125 mcg (5,000 unit) Tablet 125 mcg PO QAM potassium chloride 10 mEq tablet extended release 10 meq PO QDAY PRN Rx Instructions: TAKE IF LASIX IS TAKEN magnesium oxide 300 mg magnesium tablet 300 mg PO QAM losartan 50 mg tablet 50 mg PO BID metoprolol tartrate 25 mg tablet 25 mg PO BID ropinirole 1 mg tablet 2 mg PO QHS ropinirole 1 mg tablet 1 mg PO QAM Rx Instructions: 1/2 am and 1 to 1 1/2 tablet qhs gabapentin 400 mg capsule 400 mg PO BID pantoprazole 40 mg tablet,delayed release (DR/EC) 40 mg PO QDAY budesonide 0.5 mg/2 mL suspension for nebulization 0.5 mg NEB BID PRN fluconazole 200 mg tablet 200 mg PO Q OTHER DAY esomeprazole magnesium 40 mg Capsule,Delayed Release(Dr/Ec) 40 mg PO QAM atorvastatin 20 mg tablet 20 mg PO QHS donepezil 10 mg tablet 10 mg PO QHS levothyroxine [Synthroid] 50 mcg tablet 50 mcg PO QAM paroxetine HCl 20 mg tablet 20 mg PO QAM Eliquis 5 mg tablet 5 mg PO BID dapagliflozin propanediol [Farxiga] 10 mg tablet 10 mg PO QAM Follow ups/Referrals Follow ups/Referrals: SUAD MEJIA [Primary Care Provider] - 1 WEEK Instructions Instructions: Campylobacter Gastroenteritis, Chest Wall Pain, [id number], Pleural Effusion, Community-Acquired Pneumonia, Adult, [id number] Activity Restrictions/Additional Instructions: Call Dr. Mejia's office for one week follow up [phone]. Office is closed Stand Alone Forms: Post Hospital Follow Up Care
== END 2023-11-20 14:33 | disposition home health service (06) | DRG 189 ==
LOC: ER 22:19 → ICU 11-15 04:33
PROVIDERS: ADMIT Family Medicine; ATTEND Obstetrics & Gynecology Obstetrics

== ENCOUNTER 2024-01-19 15:15 | Observation (INO) ==
--- NOTE | 2024-01-19 15:29 | DR.SOBA ---
HPI Time Seen Time Seen by Provider: 01/19/24 15:25 Primary Care Physician Primary Care Physician: Kumar Complaints Chief Complaint Doctors Comments: 73-year-old female presents for evaluation. Started feeling poorly yesterday. Having generalized weakness, has a slight sore throat, has been a bit constipated. Developed chest pain at rest, has been off and on since.. Pain located across anterior chest, does not radiate. Is worse with palpation, but nothing makes it better. Has a history of COPD, on O2 at home, has worsening shortness of breath. She is not coughing. Denies fever or chills. No diarrhea or urinary issues. Has been nauseous but no vomiting. Chief Complaint:: c/o SOB, CP and nausea since yesterday as well as muscle spasms to her back, abdomen and legs. COVID-19 Coronavirus risk:travel/contact w/high risk person: No Has patient experienced Coronavirus symptoms: No Reviewed Nurses Notes Reviewed: Yes Source History Provided: Patient Mode of Arrival Mode of Arrival: Wheelchair Timing Onset of Chief Complaint: 01/18/24 PMH PMH Past Medical History: Yes Past Medical History: Anxiety, CHF, COPD, Depression, Diabetes, Dyslipidemia, GERD, Hypertension, Hypothyroidism and Sleep Apnea Past Surgical History: Yes Surgical History: Abdominal Surgery, Appendectomy, Cholecystectomy and H ysterectomy Past Surgical History Comment: back, right shoulder Family History History of Family Medical Conditions: Yes Family Medical History: Diabetes Mellitus, [place], Coronary Artery Disease and Hypertension Social History Does patient currently use any type of tobacco product: No Alcohol Use: None Do you use any recreational Drugs:: No Lives With: Alone Lives Where: Home Travel Risk Coronavirus risk:travel/contact w/high risk person: No Has patient experienced Coronavirus symptoms: No Infectious screening Have you traveled outside the country in the last 6 months?: No Isolation: Standard ROS Review of Systems Constitutional: Weakness Eyes: No Symptoms Reported ENTM: Throat Pain Respiratoy: Short of Breath Cardiovascular: Chest Pain Gastrointestinal/Abdominal: Constipation and Nausea Genitourinary: No Symptoms Reported Neurological: Weakness Integumentary: No Symptoms Reported Hematologic/Lymphatic: No Symptoms Reported All Other Systems: Reviewed and Negative PE Vital Signs Vitals: Vital Signs Temperature 98.1 F Pulse Rate 49 Pulse Rate 48 Pulse Rate 49 Pulse Rate 51 Pulse Rate 50 Pulse Rate 49 Pulse Rate 52 Pulse Rate 48 Pulse Rate 51 Pulse Rate 56 Pulse Rate 60 Respiratory Rate 25 Respiratory Rate 21 Respiratory Rate 27 Respiratory Rate 24 Respiratory Rate 22 Respiratory Rate 28 Respiratory Rate 24 Respiratory Rate 17 Respiratory Rate 20 Respiratory Rate 36 Respiratory Rate 24 Blood Pressure 171/72 Blood Pressure 159/69 Blood Pressure 155/69 Blood Pressure 147/66 Blood Pressure 152/65 O2 Sat by Pulse Oximetry 100 O2 Sat by Pulse Oximetry 100 O2 Sat by Pulse Oximetry 99 O2 Sat by Pulse Oximetry 100 O2 Sat by Pulse Oximetry 100 O2 Sat by Pulse Oximetry 100 O2 Sat by Pulse Oximetry 100 O2 Sat by Pulse Oximetry 100 O2 Sat by Pulse Oximetry 100 O2 Sat by Pulse Oximetry 92 O2 Sat by Pulse Oximetry 98 General General Appearance: Alert and In No Apparent Distress Eyes Eye exam: PERRL and EOMI ENT ENT Exam: Normal Oropharynx, Mucous Membranes Moist and TM's Normal Bilaterally Neck Neck Exam: Normal Inspection and Full ROM; negative Tenderness Chest Chest Inspection: Tenderness (R anterior chest wall) Respiratory Respiratory Exam: Normal Lung Sounds Bilat; negative Accessory Muscle Use or Respiratory Distress Cardiovascular Cardiovascular Exam: Regular Rate, Normal Rhythm and Normal Heart Sounds Abdominal Exam Abdominal Exam: Normal Bowel Sounds and Soft; negative Tenderness Extremities Extremities Exam: Normal Inspection; negative Tenderness or Edema Neurologic Neurological Exam: Alert, Oriented X3 and CN II-XII Intact; negative Motor Sensory Deficit Skin Skin Exam: Warm and Dry COURSE Treatment Treatment: 73-year-old female with chest pain and shortness of breath since yesterday. Came over from [facility] without her O2. Workup initiated, patient placed on O2. CXR - with increased markings, R side. Has normal white count, chemistries overall acceptable. Has been bump in her glucose at 258 and liver enzymes as well. D-dimer is elevated 1.6. BNP slightly elevated, 123. CTA pursued -has increased markings of bilateral lower lobes, with degree of bilateral effusions. Will treat with IV Zosyn. Discussed with Dr. Kumar, accepts admission. [facility]OR Labs Reviewed Laboratory Results Reviewed?: Yes 01/19/24 15:25 01/19/24 15:25 Laboratory: WBC 4.9 X10^3/uL (3.6-10.0) 01/19/24 15:25 RBC 4.88 X10^6/uL (3.5-5.4) 01/19/24 15:25 Hgb 13.3 g/dL (12.0-16.0) 01/19/24 15: Hct 40.4 % (36.0-47.0) 01/19/24 15: MCV 82.8 fL (80.0-100.0) 01/19/24 15:25 MCH 27.3 pg (27.0-34.0) 01/19/24 15: MCHC 33.0 g/dL (33.0-35.0) 01/19/24 15: RDW 13.8 % (11.6-16.5) 01/19/24 15: Plt Count 109 X10^3/uL (150.0-450.0) L 01/19/24: MPV 9.5 fL (7.4-11.0) 01/19/24: Neut % (Auto) 74.5 % (42.0-75.0) 01/19/24: Lymph % (Auto) 17.3 % (21.0-51.0) L 01/19/24: Crenshaw % (Auto) 6.5 % (0.0-13.0) 01/19/24 15: Eos % (Auto) 1.3 % (0.9-2.9) 01/19/24: Baso % (Auto) 0.4 % (0.2-1.0) 01/19/24: Neut # (Auto) 3.7 x10^3/uL (2.2-4.8) 01/19/24:25 Lymph # (Auto) 0.8 X10^3/uL (1.3-2.9) L 01/19/24 15:25 [place]renshaw # (Auto) 0.3 x10^3/uL (0.3-0.8) 01/19/24: Eos # (Auto) 0.1 x10^3/uL (0.0-0.2) 01/19/24 15: Baso # (Auto) 0.0 X10^3/uL (0.0-0.1) 01/19/24 15: Absolute Nucleated RBC 0.1 /100WBC 01/19/24 15: D-Dimer 1.60 ug/ml (0.0-0.57) H 01/19/24 15:25 Sodium 137 mmol/L (136-145) 01/19/24 15:25 Corrected Sodium 141 mmol/L (136-145) 01/19/24 15:25 Potassium 4.2 mmol/L (3.5-5.1) 01/19/24 15:25 Chloride 97 mmol/L (98-107) L 01/19/24 15:25 Carbon Dioxide 35.9 mmol/L (21-32) H 01/19/24 15:25 BUN 34 mg/dL (7-18) H 01/19/24 15:25 Creatinine 1.40 mg/dL (0.55-1.02) H 01/19/24 15:25 Est GFR (MDRD) Af Amer 48 (>60) L 01/19/24 15:25 Est GFR (MDRD) Non-Af 39 (>60) L 01/19/24 15:25 Glucose 258 mg/dL (65-99) H 01/19/24 15:25 Lactic Acid 2.2 mmol/L (0.4-2.0) H 01/19/24 16:55 Calcium 9.5 mg/dL (8.5-10.1) 01/19/24 15:25 Corrected Calcium TNP 01/19/24 15:25 Total Bilirubin 0.50 mg/dL (0.2-1.0) 01/19/24 15:25 AST 65 Units/L (15-37) H 01/19/24 15:25 ALT 138 Units/L (12-78) H 01/19/24 15:25 Alkaline Phosphatase 189 Units/L (46-116) H 01/19/24 15:25 Creatine Kinase 44 Units/L (26-192) 01/19/24 15:25 Troponin I High Sens 7.7 ng/L (4.0-60.0) 01/19/24 15:25 B-Natriuretic Peptide 123 pg/mL (0-79) H 01/19/24 15:25 Total Protein 7.1 g/dL (6.4-8.2) 01/19/24 15:25 Albumin 3.4 g/dL (3.4-5.0) 01/19/24 15:25 Globulin 3.7 g/dL (2.5-4.5) 01/19/24 15:25 Albumin/Globulin Ratio 0.9 Ratio (1.1-2.1) L 01/19/24 15:25 SARS-CoV-2 (PCR) Negative (NEGATIVE) 01/19/24 15:31 D-dimer elevated 1.6 BNP slightly elevated 123 glucose elevated to 58 mild bump in liver enzymes as well XRAY XRAY Interpreted by: Both X-ray Results: Chest x-ray with increased markings of the right mid to lower lobes. CTA pursued. EXAM: CHEST, 1 VIEW HISTORY: SOB; COMPARISON: November 16, 2023 TECHNIQUE: Chest radiographic imaging, AP portable projection, 1 image FINDINGS: No cardiomegaly. Airspace disease in the mid to lower right lung. Small right pleural effusion is not excluded. No pneumothorax. No acute osseous abnormality. IMPRESSION: Airspace disease in the mid to lower right lung. Findings could represent atelectasis, scarring and/or the sequela of aspiration. Recommend follow-up imaging in 6-8 weeks after treatment to ensure resolution. THIS IS AN ELECTRONICALLY VERIFIED FINAL REPORT 01/19/2024 4:13 PM - Electronically signed by Ramírez Vargas MD EXAMINATION: CTA, CHEST HISTORY: right sided markings, Dyspnea; COMPARISON: None. TECHNIQUE: Contiguous axial CT images of the thorax following intravenous contrast. Images are reviewed in the axial imaging plane with post processing thick slab MIP/3D volume images at a workstation.The above CT scan was done with automated [employer] xposure control and the mA and kV was adjusted to obtain quality images according to patient size. FINDINGS: Large low-density right pleural effusion located in the posterior pleural space central density 5 Hounsfield units. Small left pleural effusion. Patchy infiltrates in the right lower lobe and posteroinferior left lower lobe. The central airways are patent. Enlarged main pulmonary outflow trunk measuring 3.4 cm short axis dimension suspicious for pulmonary arterial hypertension. No evidence of thrombus within the main pulmonary arteries. Mild cardiomegaly. Coronary artery calcif ications. The thoracic aorta tapers normally. The lumen of the thoracic aorta is not optimally visualized due to lack of contrast within this vessel. Scattered arterial vascular calcifications aorta and branch vessels. No pericardial effusion. No mediastinal or hilar adenopathy. Images through the upper abdomen demonstrate splenomegaly. The inferior aspect of the spleen was not fully imaged. Mild spondylosis/dorsal kyphosis. IMPRESSION: Large low-density right pleural effusion and small left pleural effusion. Patchy infiltrates in the right lower lobe and posteroinferior left lower lobe. Enlarged main pulmonary outflow trunk suspicious for pulmonary arterial hypertension. No evidence of thrombus within the main central pulmonary arteries. Cardiomegaly, coronary artery calcifications. Splenomegaly. Recommend further evaluation with a CT of the abdomen and pelvis. THIS IS AN ELECTRONICALLY VERIFIED FINAL REPORT 01/19/2024 5:04 PM - Electronically signed by Kristen Manzano MD EKG Rate: 66 [place]appen: Normal Rhythm: NSR ST: Nonsp Opioid Opioid Risk Tool Age (Jesse box if 16-45): No History of Preadolescent Sexual Abuse: No Total: 0 Total Score Risk Category: Low Risk Copyright: Sagar WISDOM predicting aberrant behaviors Discharge Plan Diagnosis Discharge Problem: Bilateral pneumonia Discharge Plan Patient Disposition: ADMITTED INPATIENT Condition: Stable Orders to Discharge Patient Discharge Orders: Transfer (Routine); Ordered 01/19/24 Ordered By: Buddy Hendrix
--- NOTE | 2024-01-19 15:44 | EKG ---
Test Reason : chest pain Blood Pressure : */* mmHG Vent. Rate : 66 BPM Atrial Rate : 66 BPM P-R Int : 158 ms QRS Dur : 72 ms QT Int : 402 ms P-R-T Axes : 78 31 39 degrees QTc Int : 421 ms Normal sinus rhythm Nonspecific T wave abnormality Abnormal ECG When compared with ECG of 15-NOV-2023 03:14, No significant change was found Confirmed by Sudeep Harmon MD ([id number]) on 01/20/2024 7:35:00 AM Referred By: Confirmed By: Sudeep Harmon MD
[2024-01-19 15:52] LABS: EOSINOPHILS # (AUTO) 0.1 x10^3/uL (0.0-0.2); EOSINOPHILS % (AUTO) 1.3 % (0.9-2.9); HEMATOCRIT 40.4 % (36.0-47.0); HEMOGLOBIN 13.3 g/dL (12.0-16.0); MEAN PLATELET VOLUME 9.5 fL (7.4-11.0)
[2024-01-19 15:56] LABS: BASOPHILS % (AUTO) 0.4 % (0.2-1.0); LYMPHOCYTES # (AUTO) 0.8 X10^3/uL (1.3-2.9); LYMPHOCYTES % (AUTO) 17.3 % (21.0-51.0); MEAN CORPUSCULAR HEMOGLOBIN 27.3 pg (27.0-34.0); MEAN CORPUSCULAR VOLUME 82.8 fL (80.0-100.0); MONOCYTES # (AUTO) 0.3 x10^3/uL (0.3-0.8); MONOCYTES % (AUTO) 6.5 % (0.0-13.0); NEUTROPHILS # (AUTO) 3.7 x10^3/uL (2.2-4.8); NEUTROPHILS % (AUTO) 74.5 % (42.0-75.0); PLATELET COUNT 109 X10^3/uL (150.0-450.0); RED BLOOD COUNT 4.88 X10^6/uL (3.5-5.4); RED CELL DISTRIBUTION WIDTH 13.8 % (11.6-16.5); WHITE BLOOD COUNT 4.9 X10^3/uL (3.6-10.0)
[2024-01-19 16:01] LABS: ALANINE AMINOTRANSFERASE 138 Units/L (12-78); ALBUMIN 3.4 g/dL (3.4-5.0); ALKALINE PHOSPHATASE 189 Units/L (46-116); ASPARTATE AMINO TRANSFERASE 65 Units/L (15-37); BLOOD UREA NITROGEN 34 mg/dL (7-18); CALCIUM 9.5 mg/dL (8.5-10.1); CARBON DIOXIDE 35.9 mmol/L (21-32); CHLORIDE 97 mmol/L (98-107); COR NA(FOR HYPERGLY) 141 mmol/L (136-145); CREATINE KINASE 44 Units/L (26-192); GLUCOSE 258 mg/dL (65-99); POTASSIUM 4.2 mmol/L (3.5-5.1); SODIUM 137 mmol/L (136-145); TOTAL PROTEIN 7.1 g/dL (6.4-8.2); eGFR NON BLACK RACES 39 (>60)
--- NOTE | 2024-01-19 16:17 | RAD ---
EXAM:CHEST, 1 VIEWHISTORY:SOB;COMPARISON:November 16, 2023TECHNIQUE:Chest radiographic imaging, AP portable projection, 1 imageFINDINGS:No cardiomegaly.Airspace disease in the mid to lower right lung.Small right pleural effusion is not excluded.No pneumothorax.No acute osseous abnormality.IMPRESSION:Airspace disease in the mid to lower right lung. Findings could represent atelectasis, scarring and/or the sequela of aspiration. Recommend follow-up imaging in 6-8 weeks after treatment to ensure resolution.THIS IS AN ELECTRONICALLY VERIFIED FINAL REPORT01/19/2024 4:13 PM - Electronically signed by Ramírez Vargas MD
--- NOTE | 2024-01-19 17:07 | CT ---
EXAMINATION: CTA, CHEST HISTORY: right sided markings, Dyspnea; COMPARISON: None. TECHNIQUE: Contiguous axial CT images of the thorax following intravenous contrast. Images are reviewed in the axial imaging plane with post processing thick slab MIP/3D volume images at a workstation.The above C T scan was done with automated exposure control and the mA and kV was adjusted to obtain quality imag es according to patient size. FINDINGS: Large low-density right pleural effusion located in the posterior pleural space central density 5 Ashwin nsfield units. Small left pleural effusion. Patchy infiltrates in the right lower lobe and posteroi nferior left lower lobe. The central airways are patent. Enlarged main pulmonary outflow trunk measuring 3.4 cm short axis dimension suspicious for pulmonary arterial hypertension. No evidence of thrombus within the main pulmonary arteries. Mild cardiomegal y. Coronary artery calcifications. The thoracic aorta tapers normally. The lumen of the thoracic a tracey is not optimally visualized due to lack of contrast within this vessel. Scattered arterial vasc ular calcifications aorta and branch vessels. No pericardial effusion. No mediastinal or hilar adenopathy. Images through the upper abdomen demonstrate splenomegaly. The inferior aspect of the spleen was not fully imaged. Mild spondylosis/dorsal kyphosis. IMPRESSION: Large low-density right pleural effusion and small left pleural effusion. Patchy infiltrates in the right lower lobe and posteroinferior left lower lobe. Enlarged main pulmonary outflow trunk suspicious for pulmonary arterial hypertension. No evidence of thrombus within the main central pulmonary arteries. Cardiomegaly, coronary artery calcifications. Splenomegaly. Recommend further evaluation with a CT of the abdomen and pelvis. THIS IS AN ELECTRONICALLY VERIFIED FINAL REPORT 01/19/2024 5:04 PM - Electronically signed by Kristen Manzano MD
[2024-01-19] MEDS: ROCEPHIN VIAL 1 GRAM IVP ONE (17:38)
[2024-01-19] MEDS: NS 500 ML IV 500 ML IV ONE ×2 (17:38→19:58)
[2024-01-19] MEDS ORDERED: NS 250 ML IV 25 ML IV PRN (18:04)
[2024-01-19] MEDS: ZOSYN VIAL 3.375 GRAMS 3.375 G in NS 100 ML IV 100 ML IV STA (18:16)
[2024-01-19] MEDS ORDERED: CONSULT PHARMACY - POTASSIUM & MAGNESIUM XX SCH (19:17)
[2024-01-19] MEDS ORDERED: LASIX PO PRN (19:17)
[2024-01-19] MEDS: ROCEPHIN VIAL 1 GRAM ONE (19:57)
[2024-01-19] MEDS: OMNIPAQUE 350 mg/mL 100 mL BTL 100 ML ONE (19:58)
[2024-01-19 20:14] VITALS: BMI 26.7
[2024-01-19] MEDS: ZOSYN VIAL 3.375 GRAMS 3.375 G in NS 100 ML IV 100 ML IV SCH (20:45)
[2024-01-19] MEDS: KLONOPIN TAB 1 MG PO SCH (21:01)
[2024-01-19] MEDS: REGLAN TAB 5 MG PO SCH (21:01)
[2024-01-19] MEDS: ARICEPT TAB 10 MG PO SCH (21:01)
[2024-01-19] MEDS: LIPITOR TAB 20 MG PO SCH (21:01)
[2024-01-19] MEDS: SINGULAIR TAB 10 MG PO SCH (21:02)
[2024-01-19] MEDS: NORVASC TAB 5 MG PO SCH (21:02)
[2024-01-19] MEDS: REQUIP PO SCH (21:02)
[2024-01-19] MEDS: LOPRESSOR TAB 25 MG PO SCH (21:02)
[2024-01-19] MEDS: ELIQUIS PO SCH (21:02)
[2024-01-19] MEDS: NEURONTIN CAP 400 MG PO SCH (21:02)
[2024-01-19] MEDS: KLOR-CON 10 MEQ TAB PO SCH (21:02)
[2024-01-19] MEDS: METHADONE HCL PO SCH (21:04)
[2024-01-19] MEDS: LINZESS PO STA (21:04)
[2024-01-19] MEDS: NexIUM PO SCH (21:04)
[2024-01-19] MEDS: DUONEB 0.5 MG/3 MG (3 mL) NEB SCH (21:05)
[2024-01-19] MEDS: PULMICORT NEB TX 0.5 MG NEB SCH (21:05)
[2024-01-19] MEDS: LINZESS PO ONE (21:11)
[2024-01-19] MEDS: REGLAN TAB 5 MG PO ONE (21:11)
[2024-01-20 04:13] LABS: BASOPHILS % (AUTO) 0.8 % (0.2-1.0); EOSINOPHILS # (AUTO) 0.1 x10^3/uL (0.0-0.2); EOSINOPHILS % (AUTO) 2.7 % (0.9-2.9); HEMATOCRIT 35.4 % (36.0-47.0); HEMOGLOBIN 11.7 g/dL (12.0-16.0); LYMPHOCYTES # (AUTO) 0.9 X10^3/uL (1.3-2.9); LYMPHOCYTES % (AUTO) 27.1 % (21.0-51.0); MEAN CORPUSCULAR HEMOGLOBIN 27.5 pg (27.0-34.0); MEAN CORPUSCULAR HGB CONC 33.1 g/dL (33.0-35.0); MEAN PLATELET VOLUME 9.1 fL (7.4-11.0); MONOCYTES # (AUTO) 0.3 x10^3/uL (0.3-0.8); MONOCYTES % (AUTO) 9.6 % (0.0-13.0); NEUTROPHILS # (AUTO) 1.9 x10^3/uL (2.2-4.8); NEUTROPHILS % (AUTO) 59.8 % (42.0-75.0); PLATELET COUNT 96 X10^3/uL (150.0-450.0); RED BLOOD COUNT 4.26 X10^6/uL (3.5-5.4); RED CELL DISTRIBUTION WIDTH 13.8 % (11.6-16.5); WHITE BLOOD COUNT 3.2 X10^3/uL (3.6-10.0)
[2024-01-20 04:20] LABS: ALBUMIN 2.8 g/dL (3.4-5.0); CREATININE 1.33 mg/dL (0.55-1.02); POTASSIUM 3.9 mmol/L (3.5-5.1); TOTAL PROTEIN 6.3 g/dL (6.4-8.2)
[2024-01-20] MEDS: NS 250 ML IV 250 ML IV ONE (06:11)
[2024-01-20] MEDS ORDERED: CONSULT PHARMACY - POTASSIUM & MAGNESIUM XX SCH (08:20)
[2024-01-20] MEDS: PROzac PO SCH (09:00)
[2024-01-20] MEDS ORDERED: MAGNESIUM OXIDE PO SCH (09:00)
[2024-01-20] MEDS ORDERED: PATIENT'S HOME MEDICATION (Meloxicam 7.5 mg tablet) PO SCH (09:00)
[2024-01-20] MEDS: FARXIGA PO SCH (09:00)
[2024-01-20] MEDS ORDERED: PATIENT'S HOME MEDICATION (Telmisartan 80 mg tablet) PO SCH (09:00)
[2024-01-20] MEDS ORDERED: PATIENT'S HOME MEDICATION (Dapagliflozin Propanediol [Farxiga] 10 mg tablet) PO SCH (09:00)
[2024-01-20] MEDS ORDERED: MAGNESIUM PO SCH (09:00)
[2024-01-20] MEDS: REQUIP PO SCH (09:01)
[2024-01-20] MEDS: MAG-OX TAB PO SCH (09:01)
[2024-01-20] MEDS: MOBIC TAB 15 MG PO SCH (09:02)
[2024-01-20] MEDS: MICARDIS PO SCH (09:02)
[2024-01-20] MEDS: LINZESS PO SCH (09:02)
[2024-01-20] MEDS: VITAMIN D3 125 mcg (5,000 UNITS) PO SCH (09:02)
--- NOTE | 2024-01-20 11:16 | RAD ---
EXAM:CHEST, 1 VIEWHISTORY:POST THORACENTESIS;COMPARISON:None available.FINDINGS:The trachea is midline. The cardiac silhouette is unremarkable. Improved aeration of the right base is observed consistent with the patient's history of thoracentesis. No significant postprocedural pneumothorax can be identified. Left hemithorax appears clear. The bony thorax is unremarkable.IMPRESSION:Improved aeration of the right base consistent with thoracentesis as detailed above.THIS IS AN ELECTRONICALLY VERIFIED FINAL REPORT01/20/2024 11:13 AM - Electronically signed by Víctor Livingston MD
[2024-01-20 11:45] LABS: ALBUMIN 2.9 g/dL (3.4-5.0); CALCIUM 8.9 mg/dL (8.5-10.1); CARBON DIOXIDE 35.4 mmol/L (21-32); COR CA(FOR HYPOALB) 9.8 mg/dL (8.5-10.1); CREATININE 1.37 mg/dL (0.55-1.02); POTASSIUM 3.8 mmol/L (3.5-5.1); TOTAL PROTEIN 6.6 g/dL (6.4-8.2)
[2024-01-20] MEDS: NovoLIN R (or HumuLIN R) SUBCUT PRN (16:05)
[2024-01-20] MEDS: TRESIBA U-100 INSULIN SC SCH (20:57)
[2024-01-20] MEDS: SNACK - Diabetic Appropriate PO SCH (21:42)
[2024-01-20] MEDS: TYLENOL 325 MG TAB PO PRN (22:40)
[2024-01-21 06:07] LABS: BASOPHILS % (AUTO) 0.7 % (0.2-1.0); EOSINOPHILS # (AUTO) 0.1 x10^3/uL (0.0-0.2); EOSINOPHILS % (AUTO) 3.3 % (0.9-2.9); HEMATOCRIT 34.5 % (36.0-47.0); HEMOGLOBIN 11.3 g/dL (12.0-16.0); LYMPHOCYTES # (AUTO) 0.7 X10^3/uL (1.3-2.9); LYMPHOCYTES % (AUTO) 23.2 % (21.0-51.0); MEAN CORPUSCULAR HEMOGLOBIN 27.3 pg (27.0-34.0); MEAN CORPUSCULAR HGB CONC 32.9 g/dL (33.0-35.0); MEAN CORPUSCULAR VOLUME 83.1 fL (80.0-100.0); MEAN PLATELET VOLUME 9.4 fL (7.4-11.0); MONOCYTES # (AUTO) 0.3 x10^3/uL (0.3-0.8); MONOCYTES % (AUTO) 8.9 % (0.0-13.0); NEUTROPHILS % (AUTO) 63.9 % (42.0-75.0); PLATELET COUNT 96 X10^3/uL (150.0-450.0); RED BLOOD COUNT 4.15 X10^6/uL (3.5-5.4); RED CELL DISTRIBUTION WIDTH 13.7 % (11.6-16.5); WHITE BLOOD COUNT 3.1 X10^3/uL (3.6-10.0)
[2024-01-21 06:17] LABS: ALBUMIN 2.7 g/dL (3.4-5.0); CALCIUM 8.8 mg/dL (8.5-10.1); CARBON DIOXIDE 32.7 mmol/L (21-32); COR CA(FOR HYPOALB) 9.8 mg/dL (8.5-10.1); CREATININE 1.3 mg/dL (0.55-1.02); MAGNESIUM 1.8 mg/dL (2.0-2.9); POTASSIUM 3.8 mmol/L (3.5-5.1); TOTAL PROTEIN 6.1 g/dL (6.4-8.2)
[2024-01-21] MEDS ORDERED: CONSULT PHARMACY - POTASSIUM & MAGNESIUM XX SCH (07:00)
[2024-01-21 08:54] VITALS: RESP 19
[2024-01-21] MEDS ORDERED: MAGNESIUM SULFATE 1 GRAM/100 mL PREMIX 1 G/100 ML BAG IV SCH (09:26)
[2024-01-21] MEDS: K-DUR TAB 20 MEQ PO SCH (09:46)
[2024-01-21] MEDS: MAGNESIUM SULFATE 1 GRAM/100 mL PREMIX 1 G/100 ML BAG IV SCH (09:49)
[2024-01-21] MEDS: NS 250 ML IV 25 ML IV PRN (09:55)
[2024-01-21] MEDS ORDERED: MAG-OX TAB PO SCH (10:00)
--- NOTE | 2024-01-21 10:48 | RAD ---
EXAMINATION:CHEST, 1 VIEWHISTORY:Pneumonia, S/P thoracentesis; .COMPARISON STUDY:Chest x-ray 01/20/2024TECHNIQUE:Single frontal view of the chestFINDINGS:Lungs are expanded. Mild cardiac silhouette enlargement. Normal pulmonary vascular pattern. CP angles are sharp. Bones are intact.IMPRESSION:Mild cardiac silhouette enlargement.THIS IS AN ELECTRONICALLY VERIFIED FINAL REPORT01/21/2024 10:44 AM - Electronically signed by Kristen Manzano MD
[2024-01-21 11:38] VITALS: BP 138/63; PULSE 57; TEMP 97.9
[2024-01-21 13:21] VITALS: O2SAT 98
== END 2024-01-21 15:10 | disposition home or self-care (01) ==
LOC: ER 15:15 → OBS 15:15 → MED/SURG 01-20 16:24
PROVIDERS: ADMIT Obstetrics & Gynecology Obstetrics; ATTEND Obstetrics & Gynecology Obstetrics
DX: I10 Essential (primary) hypertension; G25.81 Restless legs syndrome; J18.8 Other pneumonia, unspecified organism; K59.09 Other constipation; R06.02 Shortness of breath; R94.31 Abnormal electrocardiogram [ECG] [EKG]; E03.8 Other specified hypothyroidism; J44.9 Chronic obstructive pulmonary disease, unspecified; R79.89 Other specified abnormal findings of blood chemistry; J90 Pleural effusion, not elsewhere classified; Z20.822 Contact with and (suspected) exposure to COVID-19; E11.65 Type 2 diabetes mellitus with hyperglycemia